=== PATIENT | female | born 1975 | race African-American/Black ===

== ENCOUNTER 2017-02-11 11:09 | Inpatient (IN) | payer BC ==
[2017-02-11] VITALS (7 sets, daily range): BP systolic 102–145; BP diastolic 64–86
[~2017-02-11] VITALS: Ht 154.9 cm; Wt 78.5 kg
[2017-02-11] MEDS ORDERED: IV NORMAL SALINE 1000ML BAG 1,000 ML IV ONE (13:00)
[2017-02-11] MEDS ORDERED: CONTRAST GIVEN MC PRN (13:30)
[2017-02-11] MEDS ORDERED: IOHEXOL 300 MG/ML 75 ML VIAL IV ONE (13:30)
[2017-02-11] MEDS: fentaNYL PF VIAL 100 MCG/2 ML VIAL IV PRN ×2 (13:47→17:27)
[2017-02-11 13:54] LABS: BASO # 0.2 x10^3/uL (0.0-0.2); BASO % 1 % (0-3); EOS % 1 % (0-3); HEMATOCRIT 36.9 % (36.0-47.0); HEMOGLOBIN 11.7 g/dL (12.0-15.5); LYMPH # 2.3 x10^3/uL (1.0-4.8); LYMPH % 18 % (24-48); MEAN CORPUSCULAR HEMOGLOBIN 26 pg (25-35); MEAN CORPUSCULAR HGB CONC 32 g/dL (31-37); MEAN CORPUSCULAR VOLUME 82 fL (79-100); MONO % 6 % (0-9); NEUT % 73 % (31-73); PLATELET COUNT 341 x10^3/uL (140-400); RED BLOOD COUNT 4.49 x10^6/uL (3.50-5.40); RED CELL DISTRIBUTION WIDTH 14.9 % (11.5-14.5); WHITE BLOOD COUNT 12.5 x10^3/uL (4.0-11.0)
[2017-02-11 13:58] LABS: CALCIUM 8.7 mg/dL (8.5-10.1); CREATININE 0.6 mg/dL (0.6-1.0); GFR 132.7; POTASSIUM 4.5 mmol/L (3.5-5.1)
[2017-02-11 13:58] LABS: BILIRUBIN,URINE NEGATIVE (NEG); GLUCOSE,URINE >=1000 mg/dL (NEG); NITRITE,URINE NEGATIVE (NEG); PROTEIN,URINE NEGATIVE (NEG-TRACE); UROBILINOGEN,URINE 0.2 mg/dL (0.2 mg/dL)
[2017-02-11 14:12] LABS: BACTERIA,URINE MANY /HPF (0-FEW); WBC,URINE 20-40 /HPF (0-4)
[2017-02-11 14:13] LABS: SQUAMOUS EPITHELIAL CELL,UR FEW /LPF
[2017-02-11 14:15] LABS: YEAST,URINE PRESENT /HPF
--- NOTE | 2017-02-11 14:43 | RAD ---
CT pelvis with IV contrast History: Chronic and perineal abscess. Comparison: None. Technique: After administration of intravenous contrast, 75 mL Omnipaque 300, CT of pelvis was performed. Aaxial, sagittal, and coronal reconstructions were obtained. One or more of the following individualized dose reduction techniques were utilized for the study: Automated exposure control Adjustment of mA and/or kV according to patient's size Use of iterative reconstruction technique. Findings: Evaluation of enteric structures may be limited by lack of oral contrast. Urinary bladder is unremarkable. Uterus and adnexa have unremarkable CT appearance. Aortoiliac atherosclerosis is seen. There are multiple small inguinal lymph nodes, which may be reactive. The medial inferior right gluteal subcutaneous soft tissues demonstrates several small foci of gas, compatible with gas forming infection. Small amount of associated fat stranding is seen. No focal gluteal fluid collection is identified. Involving the superficial perineum, involving the midline and slightly to the left of midline, there is a peripherally enhancing fluid collection with internal gas foci. This collection measures roughly 8 x 1 cm in axial dimension x 4.5 cm in craniocaudal dimension and may communicate with the skin surface. Impression: 1. The superficial perineum to the left of midline demonstrates peripheral enhancing gas and fluid collection measuring roughly 8 x 1 x 4.5 cm. This may communicate with the skin surface. Given provided history, this would be compatible with abscess. 2. Several small foci of gas are seen involving the medial right subcutaneous buttock with associated fat stranding, compatible with gas-forming infection. No focal fluid collection is identified in this location.
[2017-02-11] MEDS ORDERED: VANCOMYCIN 1GM IVPB FOR OMNI 250 ML IV ONE (15:00)
[2017-02-11] MEDS ORDERED: PIPERACILLIN/TAZOBACTAM 4.5 GM in IV NORMAL SALINE 100ML 100 ML IV ONE (15:00)
[2017-02-11] MEDS ORDERED: ONDANSETRON PF 4 MG/2 ML VIAL. IV PRN ×2 (15:30→16:15)
[2017-02-11] MEDS: IV NORMAL SALINE 1000ML BAG 1,000 ML IV SCH ×3 (15:30→16:26)
[2017-02-11] MEDS ORDERED: CLINDAMYCIN 600MG PREMIX 50 ML IV ONE (16:00)
[2017-02-11] MEDS ORDERED: IV RINGERS,LACTATED 1000ML 1,000 ML IV SCH (16:08)
[2017-02-11] MEDS ORDERED: fentaNYL PF VIAL 100 MCG/2 ML VIAL IV PRN ×2 (16:15)
[2017-02-11] MEDS ORDERED: LIDOCAINE 1% 1 ML SYRINGE. ID PRN (16:15)
[2017-02-11] MEDS ORDERED: MORPHINE SULFATE 2 MG/ML DISP.SYRIN. IV PRN (16:15)
[2017-02-11] MEDS ORDERED: PROCHLORPERAZINE 10 MG/2 ML VIAL. IV PRN ×2 (16:15→19:45)
[2017-02-11] MEDS ORDERED: HYDROmorphone 2 MG/ML VIAL IV PRN (16:15)
[2017-02-11] MEDS ORDERED: fentaNYL PF VIAL 100 MCG/2 ML VIAL ONE (16:16)
[2017-02-11] MEDS ORDERED: LIDOCAINE 2% 100 MG/5 ML SYRINGE. ONE ×2 (16:16→17:29)
[2017-02-11] MEDS ORDERED: ONDANSETRON PF 4 MG/2 ML VIAL. ONE ×2 (16:16→17:29)
[2017-02-11] MEDS ORDERED: PROPOFOL 0 ML IV ONE (16:16)
[2017-02-11] MEDS ORDERED: DEXAMETHASONE SOD PHOS 20 MG/5 ML VIAL. ONE ×2 (16:16→17:29)
[2017-02-11] MEDS ORDERED: MIDAZOLAM HCL/PF 2 MG/2 ML VIAL. ONE (16:16)
[2017-02-11] MEDS ORDERED: PROPOFOL 20 ML IV ONE (17:29)
[2017-02-11] MEDS ORDERED: SILVER NITRATE STICK TP ONE (17:48)
--- NOTE | 2017-02-11 17:51 | PDOC2 ---
CONSULT Date of Consult Date of Consult DATE: 02/11/17 TIME: 17:41 History of Present Illness Reason for Visit: The patient is a 41 year old female who reported to the ER due to gluteal and vaginal pain. She is a somewhat poor historian but states that she's been having problems over the last 2-3 weeks. She is not aware of any drainage or fever. The pain worsened prompting her to see assistance. She reports a history of diabetes and admits to not checking her sugars much over the last couple days. Past Medical History Endocrine: Diabetes Past Surgical History Past Surgical History Csection X 3 Social History No Lives: with Family Current Problem List Problem List Problems Medical Problems: (1) Perineal abscess Status: Acute Current Medications Current Medications Current Medications Fentanyl Citrate 50 mcg 50 mcg PRN Q15MIN PRN IV PAIN GREATER THAN 3/10 Last administered on 02/11/17 17:27; Start 02/11/17 at 13:00; Stop 02/12/17 at 12:59 Sodium Chloride (Iv Sodium Chloride 0.9% 1000ml Bag) 1,000 ml @ 1,000 mls/hr 1X ONCE IV Last administered on 02/11/17 13:48; Start 02/11/17 at 13:00; Stop 02/11/17 at 13:59; Status DC Iohexol (Omnipaque 300 Mg/ml) 75 ml 1X ONCE IV Last administered on 02/11/17 13:30; Start 02/11/17 at 13:30; Stop 02/11/17 at 13:31; Status DC Info 1 each 1 each PRN DAILY PRN MC SEE COMMENTS; Start 02/11/17 at 13:30; Stop 02/13/17 at 13:29 Vancomycin HCl 250 ml @ 250 mls/hr 1X ONCE IV Last administered on 02/11/17 17:35; Start 02/11/17 at 15:00; Stop 02/11/17 at 15:59; Status DC Piperacillin Sod/ Tazobactam Sod/ Sodium Chloride (Zosyn/Iv Sodium Chloride 0.9 % 100ml) 100 ml @ 200 mls/hr 1X ONCE IV Last administered on 02/11/17 16:06 ; Start 02/11/17 at 15:00; Stop 02/11/17 at 15:29; Status DC Ondansetron HCl (Zofran) 4 mg PRN Q8HRS PRN IV NAUSEA/VOMITING; Start 02/11/17 at 15:30; Stop 02/12/17 at 15:29 Morphine Sulfate 4 mg 4 mg PRN Q2HR PRN IV PAIN; Start 02/11/17 at 15:30; Stop 02/12/17 at 15:29 Sodium Chloride 1,000 ml @ 2,190 mls/hr Q28M IV ; Start 02/11/17 at 15:30; Stop 02/11/17 at 16:30; Status DC Clindamycin Phosphate (Cleocin 600 Mg Premix) 50 ml @ 100 mls/hr 1X ONCE IV ; Start 02/11/17 at 16:00; Stop 02/11/17 at 16:29; Status DC Ondansetron HCl (Zofran) 4 mg PRN Q6HRS PRN IV NAUSEA/VOMITING; Start 02/11/17 at 16:15; Stop 02/12/17 at 16:14 Fentanyl Citrate (Fentanyl 2ml Vial) 25 mcg PRN Q5MIN PRN IV MILD PAIN; Start 02/11/17 at 16:15; Stop 02/12/17 at 16:14 Fentanyl Citrate (Fentanyl 2ml Vial) 50 mcg PRN Q5MIN PRN IV MODERATE PAIN; Start 02/11/17 at 16:15; Stop 02/12/17 at 16:14 Morphine Sulfate 1 mg 1 mg PRN Q10MIN PRN IV SEVERE PAIN; Start 02/11/17 at 16: 15; Stop 02/12/17 at 16:14 Lactated Ringer's (Iv Lactated Ringers) 1,000 ml @ 30 mls/hr Q24H IV ; Start at 16:08; Stop 02/12/17 at 04:07 Lidocaine HCl 2 ml PRN 1X PRN ID PRIOR TO IV START; Start 02/11/17 at 16:15; Stop 02/12/17 at 16:14 Hydromorphone HCl (Dilaudid) 0.5 mg PRN Q10MIN PRN IV SEV PAIN, Second choice; Start 02/11/17 at 16:15; Stop 02/12/17 at 16:14 Prochlorperazine Edisylate (Compazine) 5 mg PACU PRN PRN IV NAUSEA, MRX1; Start 02/11/17 at 16:15; Stop 02/12/17 at 16:14 Dexamethasone Sodium Phosphate (Decadron) 20 mg STK-MED ONCE .ROUTE ; Start at 16:16; Stop 02/11/17 at 16:17; Status DC Ondansetron HCl 4 mg 4 mg STK-MED ONCE .ROUTE ; Start 02/11/17 at 16:16; Stop at 16:17; Status DC Propofol (Diprivan) 0 ml @ As Directed STK-MED ONCE IV ; Start 02/11/17 at 16:16 ; Stop 02/11/17 at 16:17; Status DC Lidocaine HCl (Lidocaine HCl 2% Abboject) 100 mg STK-MED ONCE .ROUTE ; Start at 16:16; Stop 02/11/17 at 16:17; Status DC Midazolam HCl (Versed) 2 mg STK-MED ONCE .ROUTE ; Start 02/11/17 at 16:16; Stop 02/11/17 at 16:17; Status DC Fentanyl Citrate (Fentanyl 2ml Vial) 100 mcg STK-MED ONCE .ROUTE ; Start at 16:16; Stop 02/11/17 at 16:17; Status DC Insulin Aspart (Novolog) 0-9 UNITS TIDWMEALS SQ ; Start 02/12/17 at 08:00 Dextrose (Dextrose 50%-Water Syringe) 12.5 gm PRN Q15MIN PRN IV SEE COMMENTS; Start 02/11/17 at 17:30 Dexamethasone Sodium Phosphate (Decadron) 20 mg STK-MED ONCE .ROUTE ; Start at 17:29; Stop 02/11/17 at 17:30; Status DC Ondansetron HCl 4 mg 4 mg STK-MED ONCE .ROUTE ; Start 02/11/17 at 17:29; Stop at 17:30; Status DC Propofol (Diprivan) 20 ml @ As Directed STK-MED ONCE IV ; Start 02/11/17 at 17: 29; Stop 02/11/17 at 17:30; Status DC Lidocaine HCl (Lidocaine HCl 2% Abboject) 100 mg STK-MED ONCE .ROUTE ; Start at 17:29; Stop 02/11/17 at 17:30; Status DC Allergies Allergies: Coded Allergies: No Known Drug Allergies (Unverified , 12/26/15) ROS General: No: Appetite, Chills, Fatigue, Malaise, Night Sweats, Other PSYCHOLOGICAL ROS: No: Anxiety, Behavioral Disorder, Concentration difficultie , Decreased libido, Depression, Disorientation, Hallucinations, Hostility, Irritablity, Memory difficulties, Mood Swings, Obsessive thoughts, Other, Physical abuse, Sexual abuse, Sleep disturbances, Suicidal ideation Eyes: No Blurry vision, No Decreased vision, No Double vision, No Dry eyes, No Excessive tearing, No Eye Pain, No Itchy Eyes, No Loss of vision, No Other, No Photophobia, No Scotomata, No Uses contacts, No Uses glasses HEENT: No: Epistaxis, Heacaches, Hearing change, Nasal congestion, Nasal discharge, Oral lesions, Other, Sinus pain, Sneezing, Snoring, Sore Throat, Tinnitus, Vertigo, Visual Changes, Vocal changes ALLERGY AND IMMUNOLOGY: No: Hives, Insect Bite Sensitivity, Itchy/Watery Eyes, Nasal Congestion, Other, Post Nasal Drip, Seasonal Allergies Hematological and Lymphatic: No: Bleeding Problems, Blood Clots, Blood Transfusions, Brusing, Night Sweats, Other, Pallor, Swollen Lymph Nodes ENDOCRINE: No: Breast Changes, Galactorrhea, Hair Pattern Changes, Hot Flashes , Malaise/lethargy, Mood Swings, Other, Palpitations, Polydipsia/polyuria, Skin Changes, Temperature Intolerance, Unexpected Weight Changes Respiratory: No: Cough, Hemoptysis, Orthopnea, Other, Pleuritic Pain, SOB with excertion, Shortness of breath, Sputum Changes, Stridor, Tachypnea, Wheezing Cardiovascular: No Chest Pain, No Edema, No Lt Headedness, No Orthopnea, No Other, No Palpitations, No Paroxysmal Noc. Dyspnea Gastrointestinal: No Abdominal Pain, No Constipation, No Diarrhea, No Hematochezia, No Melena, No Nausea, No Other, No Vomiting Genitourinary: YES Dysuria Musculoskeletal: No Gait Disturbance, No Joint Pain, No Joint Stiffness, No Joint Swelling, No Muscle Pain, No Muscular Weakness, No Other, No Pain In:, No Swelling In: Neurological: No Behavorial Changes, No Bowel/Bladder ControlChng, No Confusion , No Dizziness, No Gait Disturbance, No Headaches, No Impaired Coord/balance, No Memory Loss, No Numbness/Tingling, No Other, No Seizures, No Speech Problems , No Tremors, No Visual Changes, No Weakness Skin: No Acne, No Dry Skin, No Eczema, No Hair Changes, No Lumps, No Mole Changes, No Mottling, No Nail Changes, No Other, No Pruritus, No Rash, No Skin Lesion Changes Physical Exam Physical Exam open right gluteal wound with healthy granulation base, communicates and include portion of right labia, minimal induration and drainage; note was made of extensive yeast like plaquing of vaginal opening and surrounding labia General: Alert, Oriented X3, Cooperative HEENT: Atraumatic Lungs: Clear to auscultation Heart: Regular rate Abdomen: Soft, No tenderness Extremities: No clubbing, No cyanosis Neuro: Normal speech Psych/Mental Status: Mental status NL MUSCULOSKELETAL: No joint tenderness, No deformity Vitals VITALS Vital Signs Date Time Temp Pulse Resp B/P Pulse Ox O2 Delivery O2 Flow Rate FiO2 02/11/17 17:27 20 98 Room Air 02/11/17 16:00 94 144/82 02/11/17 11:35 98.0 98.0 Labs Labs Laboratory Tests Test 02/11/17 11:30 02/11/17 13:30 02/11/17 15:30 Urine Collection Type Unknown Urine Color Yellow Urine Clarity Turbid Urine pH 6.0 Urine Specific [place] 1.010 Urine Protein Negativemg/dL (NEG-TRACE) Urine Glucose (UA) >=1000mg/dL (NEG) Urine Ketones (Stick) 15mg/dL (NEG) Urine Blood Small (NEG) Urine Nitrite Negative (NEG) Urine Bilirubin Negative (NEG) Urine Urobilinogen Dipstick 0.2mg/dL (0.2 mg/dL) Urine Leukocyte Esterase Large (NEG) Urine RBC 11-20/HPF (0-2) Urine WBC 20-40/HPF (0-4) Urine Squamous Epithelial Cells Few/LPF Urine Bacteria Many/HPF (0-FEW) Urine Yeast Present/HPF White Blood Count 12.5x10^3/uL (4.0-11.0) Red Blood Count 4.49x10^6/uL (3.50-5.40) Hemoglobin 11.7g/dL (12.0-15.5) Hematocrit 36.9% (36.0-47.0) Mean Corpuscular Volume 82fL (79-100) Mean Corpuscular Hemoglobin 26pg (25-35) Mean Corpuscular Hemoglobin Concent 32g/dL (31-37) Red Cell Distribution Width 14.9% (11.5-14.5) Platelet Count 341x10^3/uL (140-400) Neutrophils (%) (Auto) 73% (31-73) Lymphocytes (%) (Auto) 18% (24-48) Monocytes (%) (Auto) 6% (0-9) Eosinophils (%) (Auto) 1% (0-3) Basophils (%) (Auto) 1% (0-3) Neutrophils # (Auto) 9.2x10^3uL (1.8-7.7) Lymphocytes # (Auto) 2.3x10^3/uL (1.0-4.8) Monocytes # (Auto) 0.8x10^3/uL (0.0-1.1) Eosinophils # (Auto) 0.2x10^3/uL (0.0-0.7) Basophils # (Auto) 0.2x10^3/uL (0.0-0.2) Sodium Level 133mmol/L (136-145) Potassium Level 4.5mmol/L (3.5-5.1) Chloride Level 96mmol/L (98-107) Carbon Dioxide Level 30mmol/L (21-32) Anion Gap 7 (6-14) Blood Urea Nitrogen 8mg/dL (7-20) Creatinine 0.6mg/dL (0.6-1.0) Estimated GFR (Cockcroft-Gault) 132.7 Glucose Level 380mg/dL (70-99) Calcium Level 8.7mg/dL (8.5-10.1) Lactic Acid Level 1.1mmol/L (0.4-2.0) Laboratory Tests Test 02/11/17 11:30 02/11/17 13:30 02/11/17 15:30 Urine Collection Type Unknown Urine Color Yellow Urine Clarity Turbid Urine pH 6.0 Urine Specific [place] 1.010 Urine Protein Negativemg/dL (NEG-TRACE) Urine Glucose (UA) >=1000mg/dL (NEG) Urine Ketones (Stick) 15mg/dL (NEG) Urine Blood Small (NEG) Urine Nitrite Negative (NEG) Urine Bilirubin Negative (NEG) Urine Urobilinogen Dipstick 0.2mg/dL (0.2 mg/dL) Urine Leukocyte Esterase Large (NEG) Urine RBC 11-20/HPF (0-2) Urine WBC 20-40/HPF (0-4) Urine Squamous Epithelial Cells Few/LPF Urine Bacteria Many/HPF (0-FEW) Urine Yeast Present/HPF White Blood Count 12.5x10^3/uL (4.0-11.0) Red Blood Count 4.49x10^6/uL (3.50-5.40) Hemoglobin 11.7g/dL (12.0-15.5) Hematocrit 36.9% (36.0-47.0) Mean Corpuscular Volume 82fL (79-100) Mean Corpuscular Hemoglobin 26pg (25-35) Mean Corpuscular Hemoglobin Concent 32g/dL (31-37) Red Cell Distribution Width 14.9% (11.5-14.5) Platelet Count 341x10^3/uL (140-400) Neutrophils (%) (Auto) 73% (31-73) Lymphocytes (%) (Auto) 18% (24-48) Monocytes (%) (Auto) 6% (0-9) Eosinophils (%) (Auto) 1% (0-3) Basophils (%) (Auto) 1% (0-3) Neutrophils # (Auto) 9.2x10^3uL (1.8-7.7) Lymphocytes # (Auto) 2.3x10^3/uL (1.0-4.8) Monocytes # (Auto) 0.8x10^3/uL (0.0-1.1) Eosinophils # (Auto) 0.2x10^3/uL (0.0-0.7) Basophils # (Auto) 0.2x10^3/uL (0.0-0.2) Sodium Level 133mmol/L (136-145) Potassium Level 4.5mmol/L (3.5-5.1) Chloride Level 96mmol/L (98-107) Carbon Dioxide Level 30mmol/L (21-32) Anion Gap 7 (6-14) Blood Urea Nitrogen 8mg/dL (7-20) Creatinine 0.6mg/dL (0.6-1.0) Estimated GFR (Cockcroft-Gault) 132.7 Glucose Level 380mg/dL (70-99) Calcium Level 8.7mg/dL (8.5-10.1) Lactic Acid Level 1.1mmol/L (0.4-2.0) Images Images CT pelvis Impression: 1. The superficial perineum to the left of midline demonstrates peripheral enhancing gas and fluid collection measuring roughly 8 x 1 x 4.5 cm. This may communicate with the skin surface. Given provided history, this would be compatible with abscess. 2. Several small foci of gas are seen involving the medial right subcutaneous buttock with associated fat stranding, compatible with gas-forming infection. No focal fluid collection is identified in this location. Assessment/Plan Assessment/Plan 41 year old female with pelvic and gluteal pain; the right gluteus shows an open wound which has a clean base with healthy granulation tissue, minimal drainage; the appearance is subacute and consistent with a healing wound without signs of necrosis or active infection; there appears to be a separate region in the midline on the pelvic CT scan with air and fluid, reviewed with Dr Bello; this area does not communicate to R gluteal wound, may be intravaginal, ?abscess, ?foreign material. Consulted Dr Rojas who promptly reported and examined the patient. The exam was difficult due to pain, plan for exam under anesthesia. GORDO TONY MD Feb 11, 2017 17:51
[2017-02-11] MEDS ORDERED: INSULIN REGULAR 100 UNIT/ML 10ML VIAL. IV ONE ×2 (18:30→20:30)
--- NOTE | 2017-02-11 18:40 | ACF ---
Admission Forms Criteria WOUND COMPLICATIONS Clinical Indications for Inpatient Care (Place 'X' for any and all applicable criteria): Ongoing inpatient care may be indicated for wound complications with ANY ONE of the following (1) (15): [X]I. Infection with ANY ONE of the following(32)(33): [ ]a) Temperature greater than 38.5 C (101.3 F) [ ]b) Evidence of tissue necrosis [ ]c) Erythema diameter expanding around wound despite treatment [ ]d) Mental status changes [ ]e) Dehydration [ ]f) Bacteremia [ ]g) Hemodynamic instability [ ]h) Suspected necrotizing fasciitis [ ]i) Rapidly spreading lesions [X]j) High-risk location (eg, perineum, sternum, orbit) [ ]k) High-risk coexisting clinical condition as indicated by ANY ONE of the following: [ ]i) Poorly controlled diabetes [ ]ii) Cirrhosis [ ]iii) Renal failure [ ]iv) Neutropenia [ ] v) Asplenia [ ]vi) Immunosuppression (eg, AIDS, chronic corticosteroid use) [ ]viii) Other high-risk medical comorbidities [ ] II. Dehiscence requiring frequent monitoring or immediate treatment [ ] III. Hematoma with ANY ONE of the following: [ ]a) Hemodynamic instability or acute anemia due to rapid development of hematoma [ ]b) Neck hematoma causing airway compression [ ]c) Retroperitoneal hematoma [ ]d) Uncontrolled coagulopathy [ ]IV. Seroma with evidence of secondary infection and requirement for IV antibiotics [D](31) [ ]V. Pain that cannot be managed at lower level of care Extended stay beyond goal length of stay for primary condition may be needed until ALL of the following are present(1)(33)(34): [ ]a) Afebrile or fever resolving [ ]b) Hemodynamic stability [ ]c) Pain resolving [ ]d) Wound closed, continuity adequately restored, or wound manageable at lower level of care [ ]e) No drain needed or drain care manageable at lower level of care [ ]f) Wound hematoma or seroma resolving [ ]g) Antibiotics not needed or regimen manageable at lower level of care(38) [ ]h) Dressing care manageable at lower level of care [ ]i) Coagulopathy absent, resolved, or treatable at lower level of care [ ]j) Medical comorbidities resolved or treatable at lower level of care The original [facility] content created by [facility] has been revised. The portions of the content which have been revised are identified through the use of italic text or in bold, and [facility] has neither reviewed nor approved the modified material. All other unmodified content is copyright [facility]. Please see references footnoted in the original [facility] edition 2016 Admission Criteria Met?: Yes JANINE KHAN Feb 11, 2017 18:40
--- NOTE | 2017-02-11 19:36 | PDOC ---
BRIEF OPERATIVE NOTE Pre-Op Diagnosis 1. Gluteal Abscess 2. Severe Vulvitis Post-Op Diagnosis Same Procedure Performed 1. EUA 2. Debridement of Vulva 3. Wound Packing of Gluteal abscess and Right labial abscess Surgeon Dr. Rojas Anesthesia Type: General Blood Loss 25 ml Specimens Obtained culture of gluteal abscess Findings severe vulvitis with exudate covering entire vulva, Right gluteal abscess with extension to Right vulva with granulation tissue Complications none Additional Remarks pt. FRANCESCA Cohen Jr, MD Feb 11, 2017 19:36
--- NOTE | 2017-02-11 19:44 | PHYS DOC ---
Past Medical History Past Medical History: Diabetes-Type II Past Surgical History: Alcohol Use: None Drug Use: None Adult General Chief Complaint Chief Complaint: PELVIC PAIN HPI HPI Patient is a 41 year old female who presents with rectal discomfort. The patient reports discomfort and swelling around her rectum and vagina for unknown duration of time, maybe one or 2 weeks. She denies fevers or chills, nausea or vomiting, abdominal pain, flank pain, dysuria or hematuria, vaginal bleeding or discharge. Denies previous history of similar symptoms. History of diabetes. Review of Systems Review of Systems Constitutional: Denies fever or chills Eyes: Denies change in visual acuity HENT: Denies nasal congestion or sore throat Respiratory: Denies cough or shortness of breath Cardiovascular: Denies chest pain or edema GI: Denies abdominal pain, nausea, vomiting, bloody stools or diarrhea. Reports rectal pain : Denies dysuria or hematuria. Reports vaginal pain Musculoskeletal: Denies back pain or joint pain Integument: Denies rash or skin lesions Neurologic: Denies headache, focal weakness or sensory changes Current Medications Current Medications Current Medications Medications (Trade) Dose Ordered Sig/Jono Start Time Stop Time Status Last Admin Dose Admin Fentanyl Citrate 50 mcg 50 mcg PRN Q15MIN PRN 02/11/17 13:00 02/12/17 12:59 02/11/17 17:27 50 MCG Info 1 each 1 each PRN DAILY PRN 02/11/17 13:30 02/13/17 13:29 Iohexol (Omnipaque 300 Mg/ml) 75 ml 1X ONCE 02/11/17 13:30 02/11/17 13:31 DC 02/11/17 13:30 75 ML Piperacillin Sod/ Tazobactam Sod/ Sodium Chloride (Zosyn/Iv Sodium Chloride 0.9% 100ml) 100 ml @ 200 mls/hr 1X ONCE 02/11/17 15:00 02/11/17 15:29 DC 02/11/17 16:06 200 MLS/HR Sodium Chloride (Iv Sodium Chloride 0.9% 1000ml Bag) 1,000 ml @ 1,000 mls/hr 1X ONCE 02/11/17 13:00 02/11/17 13:59 DC 02/11/17 13:48 1,000 MLS/HR Vancomycin HCl 250 ml @ 250 mls/hr 1X ONCE 02/11/17 15:00 02/11/17 15:59 DC 02/11/17 17:35 250 MLS/HR Allergies Allergies Allergies Coded Allergies Type Severity Reaction Last Updated Verified No Known Drug Allergies 12/26/15 No Physical Exam Physical Exam Constitutional: Well developed, well nourished, no acute distress, non-toxic appearance. HENT: Normocephalic, atraumatic, bilateral external ears normal, oropharynx moist, nose normal. Eyes: conjunctiva normal, no discharge. Neck: supple, no stridor. Cardiovascular: RRR, no murmurs, no edema. Lungs & Thorax: LCTAB, no wheezing, no respiratory distress. Abdomen: soft, nontender, nondistended. /Rectal: extensive induration to right buttock, perineum, both labia. area of induration with open wound to medial right buttock approx 6 cm x 3 cm, with skin breakdown to medial left buttock, no rectal fluctuance but she has pain with minimal insertion of gloved finger on rectal exam. diffuse white plaque/ discharge (?yeast) to vulva, difficult pelvic exam due to skin adhesions & discomfort. intravaginally there is a copious amount of purulent fluid, no visualized foreign body, unable to visualize cervix, bimanual exam demonstrates diffuse vaginal discomfort without palpable fluctuance/induration internally. Skin: Warm, dry, no erythema, no rash. Back: No CVA tenderness. Extremities: No tenderness, no edema. Neurologic: Alert and oriented X 3, no focal deficits noted. Psychologic: Affect normal, judgement normal, mood normal. Current Patient Data Vital Signs Vital Signs Date Time Temp Pulse Resp B/P Pulse Ox O2 Delivery O2 Flow Rate FiO2 02/11/17 15:00 90 18 169/83 98 02/11/17 13:47 Room Air 02/11/17 11:35 98.0 98.0 Lab Values Laboratory Tests Test 02/11/17 11:30 02/11/17 13:30 Urine Collection Type Unknown Urine Color Yellow Urine Clarity Turbid Urine pH 6.0 Urine Specific [place] 1.010 Urine Protein Negativemg/dL (NEG-TRACE) Urine Glucose (UA) >=1000mg/dL (NEG) Urine Ketones (Stick) 15mg/dL (NEG) Urine Blood Small (NEG) Urine Nitrite Negative (NEG) Urine Bilirubin Negative (NEG) Urine Urobilinogen Dipstick 0.2mg/dL (0.2 mg/dL) Urine Leukocyte Esterase Large (NEG) Urine RBC 11-20/HPF (0-2) Urine WBC 20-40/HPF (0-4) Urine Squamous Epithelial Cells Few/LPF Urine Bacteria Many/HPF (0-FEW) Urine Yeast Present/HPF White Blood Count 12.5x10^3/uL (4.0-11.0) H Red Blood Count 4.49x10^6/uL (3.50-5.40) Hemoglobin 11.7g/dL (12.0-15.5) L Hematocrit 36.9% (36.0-47.0) Mean Corpuscular Volume 82fL (79-100) Mean Corpuscular Hemoglobin 26pg (25-35) Mean Corpuscular Hemoglobin Concent 32g/dL (31-37) Red Cell Distribution Width 14.9% (11.5-14.5) H Platelet Count 341x10^3/uL (140-400) Neutrophils (%) (Auto) 73% (31-73) Lymphocytes (%) (Auto) 18% (24-48) L Monocytes (%) (Auto) 6% (0-9) Eosinophils (%) (Auto) 1% (0-3) Basophils (%) (Auto) 1% (0-3) Neutrophils # (Auto) 9.2x10^3uL (1.8-7.7) H Lymphocytes # (Auto) 2.3x10^3/uL (1.0-4.8) Monocytes # (Auto) 0.8x10^3/uL (0.0-1.1) Eosinophils # (Auto) 0.2x10^3/uL (0.0-0.7) Basophils # (Auto) 0.2x10^3/uL (0.0-0.2) Sodium Level 133mmol/L (136-145) L Potassium Level 4.5mmol/L (3.5-5.1) Chloride Level 96mmol/L (98-107) L Carbon Dioxide Level 30mmol/L (21-32) Anion Gap 7 (6-14) Blood Urea Nitrogen 8mg/dL (7-20) Creatinine 0.6mg/dL (0.6-1.0) Estimated GFR (Cockcroft-Gault) 132.7 Glucose Level 380mg/dL (70-99) H Calcium Level 8.7mg/dL (8.5-10.1) Laboratory Tests 02/11/17 13:30 Laboratory Tests 02/11/17 13:30 EKG EKG [] Radiology/Procedures Radiology/Procedures PROCEDURE: CT PELVIS W/CONTRAST CT pelvis with IV contrast History: Chronic and perineal abscess. Comparison: None. Technique: After administration of intravenous contrast, 75 mL Omnipaque 300, CT of pelvis was performed. Aaxial, sagittal, and coronal reconstructions were obtained. One or more of the following individualized dose reduction techniques were utilized for the study: Automated exposure control Adjustment of mA and/or kV according to patient's size Use of iterative reconstruction technique. Findings: Evaluation of enteric structures may be limited by lack of oral contrast. Urinary bladder is unremarkable. Uterus and adnexa have unremarkable CT appearance. Aortoiliac atherosclerosis is seen. There are multiple small inguinal lymph nodes, which may be reactive. The medial inferior right gluteal subcutaneous soft tissues demonstrates several small foci of gas, compatible with gas forming infection. Small amount of associated fat stranding is seen. No focal gluteal fluid collection is identified. Involving the superficial perineum, involving the midline and slightly to the left of midline, there is a peripherally enhancing fluid collection with internal gas foci. This collection measures roughly 8 x 1 cm in axial dimension x 4.5 cm in craniocaudal dimension and may communicate with the skin surface. Impression: 1. The superficial perineum to the left of midline demonstrates peripheral enhancing gas and fluid collection measuring roughly 8 x 1 x 4.5 cm. This may communicate with the skin surface. Given provided history, this would be compatible with abscess. 2. Several small foci of gas are seen involving the medial right subcutaneous buttock with associated fat stranding, compatible with gas-forming infection. No focal fluid collection is identified in this location. DICTATED and SIGNED BY: ED SAINZ MD DATE: 02/11/17 [id number][] Course & Med Decision Making Course & Med Decision Making Pertinent Labs and Imaging studies reviewed. (See chart for details) The patient presents with vaginal and rectal pain. There is a very impressive exam demonstrating large open wound, induration throughout the perineum and across the buttocks. Patient is afebrile, mildly tachycardic, mild leukocytosis. Obtained CT of the pelvis which suggests gas-forming organism, concerned for necrotizing fasciitis/jay's gangrene. Consulted Dr. Latif of general surgery. Ordered vancomycin and Zosyn. Consulted with Dr. Clemente of infectious disease who recommends addition of clindamycin. Originally I had discussed with Dr. Shaver who agreed to admit the patient to inpatient status, to the ICU. Dr. Latif came to the emergency Department to evaluate the patient , upon his more aggressive exam the large buttock wound actually tracks up into the labia but is open and draining. He did not feel that the patient required emergent general surgery intervention as wound already open & draining, minimal surrounding cellulitis. He requested consult to Dr. Rojas of gynecology who came to the emergency department as well in the evaluated the patient together. He plans to take the patient to surgery for further evaluation, suspect skin breakdown but will do exam under anesthesia for further evaluation. Discussed with consultants and admitting, we'll downgrade to med/telemetry status. Patient agrees with plan, admitted in stable condition. Critical care time: 45 minutes [] Dragon Disclaimer Dragon Disclaimer This electronic medical record was generated, in whole or in part, using a voice recognition dictation system. Departure Departure Impression: Primary Impression: Perineal abscess Additional Impressions: Vulvar inflammation Vaginal discharge Leukocytosis Hyperglycemia Disposition: 09 ADMITTED INPATIENT Condition: STABLE Problem Qualifiers RANDY AMATO MD Feb 11, 2017 19:44
[2017-02-11] MEDS ORDERED: diphenhydrAMINE HCL 25 MG CAPSULE PO PRN (19:45)
[2017-02-11] MEDS ORDERED: CALCIUM CARBONATE 500 MG TAB.CHEW PO PRN (19:45)
[2017-02-11] MEDS ORDERED: ZOLPIDEM 5 MG TABLET. PO PRN (19:45)
[2017-02-11] MEDS ORDERED: DEXTROSE 50% 25 GM / 50ML DISP.SYRIN. IV PRN ×2 (19:45)
[2017-02-11] MEDS ORDERED: 0.9 % SODIUM CHLORIDE 10 ML DISP.SYRIN. IV PRN (19:45)
[2017-02-11] MEDS ORDERED: SIMETHICONE 80 MG TAB.CHEW PO PRN (19:45)
[2017-02-11] MEDS ORDERED: diphenhydrAMINE 50 MG/ML VIAL IV PRN (20:00)
[2017-02-11] MEDS: MORPHINE SULFATE 4 MG/ML DISP.SYRIN. IV PRN (21:46)
[2017-02-11] MEDS: GABAPENTIN 300 MG CAPSULE. PO SCH (23:14)
--- NOTE | 2017-02-11 23:49 | HP ---
ADMIT DATE: 02/11/2017 CHIEF COMPLAINT: Buttock pain. HISTORY OF PRESENT ILLNESS: The patient is a 41-year-old -[place] woman with past medical history of diabetes who presented to the Emergency Room on urging of her who visits the wound clinic multiple times a week. She is somewhat fuzzy on the exact start date, but she has had buttock and vulvar pain for several weeks. She denies any fevers or chills. Pain is fairly severe, but she denies that she ever noticed bleeding or oozing from the area. In the Emergency Room, she was evaluated and found with extensive open wounds on her buttock as well as vulva. CT of the pelvis revealed an 8 x 4.5 cm gas and fluid collection consistent with an abscess in her perineum, left of the midline, several small foci of gas were also noticed in the medial right subcutaneous buttock with associated fat stranding compatible with gas forming infection. Consult from surgery as well as CHARGER TESTER were obtained and the patient was taken to the operating room by Dr. Rojas. Severe vulvitis with exudate covering the entire vulva was found as well as right gluteal abscess with extension to right vulva with granulation tissue. The abscess was drained and packed. Vulva was debrided. The patient is now admitted for postop care and monitoring. PAST MEDICAL HISTORY: Diabetes mellitus. FAMILY HISTORY: Positive for father with diabetes. No family history known of CAD, hypertension. SOCIAL HISTORY: She is , living with her and 2 children. Never smoked, no toxic habits. ALLERGIES: No known drug allergies. MEDICATIONS: MAR reconciled with home medications. REVIEW OF SYSTEMS: Pain currently is fairly well controlled. She still feels a little drowsy. Denies any symptoms in rest of organ system review. PHYSICAL EXAMINATION: VITAL SIGNS: From today show a blood pressure of 123/72, heart rate of 92, respiratory rate at 18. She is afebrile. GENERAL: This is a 41-year-old -[place] woman, awake, alert, in no acute distress. HEENT: Shows no scleral icterus. Dentition is poor. NECK: Supple. LUNGS: Clear to auscultation bilaterally. HEART: Regular rate and rhythm. ABDOMEN: Has positive bowel sounds, soft, nontender. EXTREMITIES: Show no edema, no clubbing, no cyanosis. SKIN: Warm, soft and dry. LABORATORY DATA: CBC with WBC of 12.5, hemoglobin 11.7, platelets of 341. Chemistries with a BUN and creatinine of 8 and 0.6, sodium of 133, chloride at 96, glucose at 380 and elevated over 200 over the evening. Urine showed 20-40 wbc and many bacteria, 11-20 rbc present as well, glucose greater than 1000. IMAGING STUDIES: Pelvis CT as noted under HPI. ASSESSMENT AND PLAN: The patient is a 41-year-old woman with a gas producing abscess in her buttocks/vulva. The initial injury clearly has started significantly longer and is subacute and shows granulation. This has now been addressed with abscess drainage and packing as well as debridement per Dr. Rojas. We will continue wound care. Wound care team will be consulted as well. The patient has been placed on antibiotics including Flagyl. We will continue for now. ID consult to be obtained in the morning. Cultures are pending. Diabetes clearly is poorly controlled. Current medications are unknown. We will restart ECTOR. In addition, insulin sliding scale will be instituted. Suspect the patient is poorly controlled as she does not check frequently. She has lost her job and thus her primary care provider, and is currently following up at [facility] as needed only. Will continue other home medications as indicated. For prophylaxis, she will be started on H2 blockers as well as SCDs. RAHUL MONTERO MD DR: ALEX/tal JOB#: [id number] / [id number] TONNY
[2017-02-12] VITALS (7 sets, daily range): BP systolic 97–146; BP diastolic 63–85
--- NOTE | 2017-02-12 00:29 | OP ---
DATE OF SURGERY: PREOPERATIVE DIAGNOSES: 1. Gluteal abscess. 2. Severe vulvitis. POSTOPERATIVE DIAGNOSES: 1. Gluteal abscess. 2. Severe vulvitis. PROCEDURE: 1. Exam under anesthesia. 2. Debridement of vulva. 3. Wound packing of gluteal abscess and right labial abscess. SURGEON: Francesca Bautista M.D. ANESTHESIA: GETA. ESTIMATED BLOOD LOSS: 25 mL. COMPLICATIONS: None. FINDINGS: Severe vulvitis with exudate covering entire vulva, right gluteal abscess with extension at the right vulva with granulation tissue. SUMMARY: A 41-year-old female who presents to Emergency Department with buttocks pain and tenderness. She reports having the symptoms for last 2-3 weeks. She denied any fever, chills, nausea, vomiting or drainage from the area. During examination in the Emergency Department by myself and Dr. Latif as well as Emergency Room physician, the patient had gluteal abscess that has spontaneously opened and drained with granulation tissue that extended from the right gluteal all the way to the right labia. There was severe vulvitis with at least a cm thick of exudate on the vulvar area occluding the vaginal opening. The patient was counseled on surgery and ____ exam under anesthesia as well as evaluation of gluteal abscess and vaginal and labial areas for any additional abscess formation. The patient voiced clear understanding of all risks, benefits and expectations. DESCRIPTION OF PROCEDURE: The patient was taken to the surgery suite and placed in dorsal lithotomy position. She was prepped with Betadine solution and draped in sterile fashion. The gluteal abscess was explored in which the tracts extended from the right gluteus all the way to the right labia majora. There was no other abscess formation, all the tracts were palpated digitally and with the swabs. The area did demonstrate granulation tissue. The vulvar exudate was then removed with moist Ray-Dasia as well as the ____ pulsator. Once this was removed, a Tai catheter was placed, which elicited moderate amount of clear fluid. The speculum was utilized to visualize the cervix, which appeared normal. There were no lacerations or lesions intravaginally. There were no ulcerations intravaginally or any extensions into the vaginal vault. This was copiously irrigated as well. The buttock was then packed with Kerlix gauze with instruction from Dr. Latif. A 4 x 4s were then placed over the Kerlix to keep the Kerlix gauze in place. The patient was then taken to recovery room in stable condition. Sponge count correct x 3. FRANCESCA BAUTISTA MD DR: CRISSY/tal JOB#: [id number] / [id number]
[2017-02-12] MEDS: MORPHINE SULFATE 4 MG/ML DISP.SYRIN. IV PRN ×3 (02:53→09:14)
[2017-02-12] MEDS: GABAPENTIN 300 MG CAPSULE. PO SCH ×3 (06:08→21:53)
[2017-02-12 06:34] LABS: BASO % 0 % (0-3); EOS % 0 % (0-3); HEMOGLOBIN 11.2 g/dL (12.0-15.5); LYMPH # 1.2 x10^3/uL (1.0-4.8); LYMPH % 11 % (24-48); MEAN CORPUSCULAR HEMOGLOBIN 26 pg (25-35); MEAN CORPUSCULAR HGB CONC 31 g/dL (31-37); MEAN CORPUSCULAR VOLUME 83 fL (79-100); MONO % 3 % (0-9); NEUT % 85 % (31-73); PLATELET COUNT 314 x10^3/uL (140-400); RED BLOOD COUNT 4.35 x10^6/uL (3.50-5.40); RED CELL DISTRIBUTION WIDTH 14.7 % (11.5-14.5); WHITE BLOOD COUNT 11.1 x10^3/uL (4.0-11.0)
[2017-02-12 06:56] LABS: CALCIUM 8.6 mg/dL (8.5-10.1); CREATININE 0.6 mg/dL (0.6-1.0); GFR 132.7; POTASSIUM 4.5 mmol/L (3.5-5.1)
[2017-02-12] MEDS: INSULIN ASPART 300 UNITS/3 ML INSULN.PEN SQ SCH ×5 (08:00→17:00)
[2017-02-12] MEDS ORDERED: INSULIN ASPART 300 UNITS/3 ML INSULN.PEN SQ SCH (08:00)
[2017-02-12] MEDS ORDERED: INSULIN DETEMIR 300 UNITS/3 ML INSULN.PEN. SQ ONE (08:30)
[2017-02-12] MEDS ORDERED: INSULIN ASPART 300 UNITS/3 ML INSULN.PEN SQ ONE (08:30)
--- NOTE | 2017-02-12 08:53 | PDOC ---
Infectious Disease Note Vital Sign Vital Signs Vital Signs Date Time Temp Pulse Resp B/P Pulse Ox O2 Delivery O2 Flow Rate FiO2 02/12/17 07:00 97.9 93 18 104/65 97 Nasal Cannula 3.0 97.9 Labs Lab Laboratory Tests Test 02/11/17 11:30 02/11/17 13:30 02/11/17 15:30 02/11/17 18:25 Urine Collection Type Unknown Urine Color Yellow Urine Clarity Turbid Urine pH 6.0 Urine Specific [place] 1.010 Urine Protein Negativemg/dL (NEG-TRACE) Urine Glucose (UA) >=1000mg/dL (NEG) Urine Ketones (Stick) 15mg/dL (NEG) Urine Blood Small (NEG) Urine Nitrite Negative (NEG) Urine Bilirubin Negative (NEG) Urine Urobilinogen Dipstick 0.2mg/dL (0.2 mg/dL) Urine Leukocyte Esterase Large (NEG) Urine RBC 11-20/HPF (0-2) Urine WBC 20-40/HPF (0-4) Urine Squamous Epithelial Cells Few/LPF Urine Bacteria Many/HPF (0-FEW) Urine Yeast Present/HPF White Blood Count 12.5x10^3/uL (4.0-11.0) Red Blood Count 4.49x10^6/uL (3.50-5.40) Hemoglobin 11.7g/dL (12.0-15.5) Hematocrit 36.9% (36.0-47.0) Mean Corpuscular Volume 82fL (79-100) Mean Corpuscular Hemoglobin 26pg (25-35) Mean Corpuscular Hemoglobin Concent 32g/dL (31-37) Red Cell Distribution Width 14.9% (11.5-14.5) Platelet Count 341x10^3/uL (140-400) Neutrophils (%) (Auto) 73% (31-73) Lymphocytes (%) (Auto) 18% (24-48) Monocytes (%) (Auto) 6% (0-9) Eosinophils (%) (Auto) 1% (0-3) Basophils (%) (Auto) 1% (0-3) Neutrophils # (Auto) 9.2x10^3uL (1.8-7.7) Lymphocytes # (Auto) 2.3x10^3/uL (1.0-4.8) Monocytes # (Auto) 0.8x10^3/uL (0.0-1.1) Eosinophils # (Auto) 0.2x10^3/uL (0.0-0.7) Basophils # (Auto) 0.2x10^3/uL (0.0-0.2) Sodium Level 133mmol/L (136-145) Potassium Level 4.5mmol/L (3.5-5.1) Chloride Level 96mmol/L (98-107) Carbon Dioxide Level 30mmol/L (21-32) Anion Gap 7 (6-14) Blood Urea Nitrogen 8mg/dL (7-20) Creatinine 0.6mg/dL (0.6-1.0) Estimated GFR (Cockcroft-Gault) 132.7 Glucose Level 380mg/dL (70-99) Calcium Level 8.7mg/dL (8.5-10.1) Lactic Acid Level 1.1mmol/L (0.4-2.0) Glucose (Fingerstick) 289mg/dL (70-99) Test 02/11/17 19:30 02/11/17 21:00 02/12/17 05:55 02/12/17 07:24 Glucose (Fingerstick) 231mg/dL (70-99) 222mg/dL (70-99) 418mg/dL (70-99) White Blood Count 11.1x10^3/uL (4.0-11.0) Red Blood Count 4.35x10^6/uL (3.50-5.40) Hemoglobin 11.2g/dL (12.0-15.5) Hematocrit 36.0% (36.0-47.0) Mean Corpuscular Volume 83fL (79-100) Mean Corpuscular Hemoglobin 26pg (25-35) Mean Corpuscular Hemoglobin Concent 31g/dL (31-37) Red Cell Distribution Width 14.7% (11.5-14.5) Platelet Count 314x10^3/uL (140-400) Neutrophils (%) (Auto) 85% (31-73) Lymphocytes (%) (Auto) 11% (24-48) Monocytes (%) (Auto) 3% (0-9) Eosinophils (%) (Auto) 0% (0-3) Basophils (%) (Auto) 0% (0-3) Neutrophils # (Auto) 9.4x10^3uL (1.8-7.7) Lymphocytes # (Auto) 1.2x10^3/uL (1.0-4.8) Monocytes # (Auto) 0.4x10^3/uL (0.0-1.1) Eosinophils # (Auto) 0.0x10^3/uL (0.0-0.7) Basophils # (Auto) 0.0x10^3/uL (0.0-0.2) Sodium Level 132mmol/L (136-145) Potassium Level 4.5mmol/L (3.5-5.1) Chloride Level 99mmol/L (98-107) Carbon Dioxide Level 27mmol/L (21-32) Anion Gap 6 (6-14) Blood Urea Nitrogen 7mg/dL (7-20) Creatinine 0.6mg/dL (0.6-1.0) Estimated GFR (Cockcroft-Gault) 132.7 Glucose Level 420mg/dL (70-99) Calcium Level 8.6mg/dL (8.5-10.1) Objective Assessment Leukocytosis - Received Decadron 02/11 Perineal abscess s/p I an D 02/11 DM - s/p Steroids Yeast in urine Plan Plan of Care Recommended Vanc/Zosyn/Clinda from ER - will cont Add Fluconazole F/u cults and hope to change to po soon Local wound care F/u labs Thank you # [id number] ANNA OLVERA MD Feb 12, 2017 08:53
--- NOTE | 2017-02-12 08:55 | PDOC ---
PROGRESS NOTES Chief Complaint Chief Complaint sepsis, cellulitis abscess in her buttocks/vulva. DM2, poor control obeisty, BMI 32 htn UTI History of Present Illness History of Present Illness s/p Surg POD #1 ID following increase insulin, start metformin, A1c hgb pending pain improved Vitals Vitals Vital Signs Date Time Temp Pulse Resp B/P Pulse Ox O2 Delivery O2 Flow Rate FiO2 02/12/17 07:00 97.9 93 18 104/65 97 Nasal Cannula 3.0 97.9 Physical Exam General: Alert, Oriented X3, Cooperative Heart: Regular rate Lungs: Clear Abdomen: Soft, No tenderness Extremities: No clubbing, No cyanosis Labs LABS Laboratory Tests Test 02/11/17 11:30 02/11/17 13:30 02/11/17 15:30 02/11/17 18:25 Urine Collection Type Unknown Urine Color Yellow Urine Clarity Turbid Urine pH 6.0 Urine Specific [place] 1.010 Urine Protein Negativemg/dL (NEG-TRACE) Urine Glucose (UA) >=1000mg/dL (NEG) Urine Ketones (Stick) 15mg/dL (NEG) Urine Blood Small (NEG) Urine Nitrite Negative (NEG) Urine Bilirubin Negative (NEG) Urine Urobilinogen Dipstick 0.2mg/dL (0.2 mg/dL) Urine Leukocyte Esterase Large (NEG) Urine RBC 11-20/HPF (0-2) Urine WBC 20-40/HPF (0-4) Urine Squamous Epithelial Cells Few/LPF Urine Bacteria Many/HPF (0-FEW) Urine Yeast Present/HPF White Blood Count 12.5x10^3/uL (4.0-11.0) Red Blood Count 4.49x10^6/uL (3.50-5.40) Hemoglobin 11.7g/dL (12.0-15.5) Hematocrit 36.9% (36.0-47.0) Mean Corpuscular Volume 82fL (79-100) Mean Corpuscular Hemoglobin 26pg (25-35) Mean Corpuscular Hemoglobin Concent 32g/dL (31-37) Red Cell Distribution Width 14.9% (11.5-14.5) Platelet Count 341x10^3/uL (140-400) Neutrophils (%) (Auto) 73% (31-73) Lymphocytes (%) (Auto) 18% (24-48) Monocytes (%) (Auto) 6% (0-9) Eosinophils (%) (Auto) 1% (0-3) Basophils (%) (Auto) 1% (0-3) Neutrophils # (Auto) 9.2x10^3uL (1.8-7.7) Lymphocytes # (Auto) 2.3x10^3/uL (1.0-4.8) Monocytes # (Auto) 0.8x10^3/uL (0.0-1.1) Eosinophils # (Auto) 0.2x10^3/uL (0.0-0.7) Basophils # (Auto) 0.2x10^3/uL (0.0-0.2) Sodium Level 133mmol/L (136-145) Potassium Level 4.5mmol/L (3.5-5.1) Chloride Level 96mmol/L (98-107) Carbon Dioxide Level 30mmol/L (21-32) Anion Gap 7 (6-14) Blood Urea Nitrogen 8mg/dL (7-20) Creatinine 0.6mg/dL (0.6-1.0) Estimated GFR (Cockcroft-Gault) 132.7 Glucose Level 380mg/dL (70-99) Calcium Level 8.7mg/dL (8.5-10.1) Lactic Acid Level 1.1mmol/L (0.4-2.0) Glucose (Fingerstick) 289mg/dL (70-99) Test 02/11/17 19:30 02/11/17 21:00 02/12/17 05:55 02/12/17 07:24 Glucose (Fingerstick) 231mg/dL (70-99) 222mg/dL (70-99) 418mg/dL (70-99) White Blood Count 11.1x10^3/uL (4.0-11.0) Red Blood Count 4.35x10^6/uL (3.50-5.40) Hemoglobin 11.2g/dL (12.0-15.5) Hematocrit 36.0% (36.0-47.0) Mean Corpuscular Volume 83fL (79-100) Mean Corpuscular Hemoglobin 26pg (25-35) Mean Corpuscular Hemoglobin Concent 31g/dL (31-37) Red Cell Distribution Width 14.7% (11.5-14.5) Platelet Count 314x10^3/uL (140-400) Neutrophils (%) (Auto) 85% (31-73) Lymphocytes (%) (Auto) 11% (24-48) Monocytes (%) (Auto) 3% (0-9) Eosinophils (%) (Auto) 0% (0-3) Basophils (%) (Auto) 0% (0-3) Neutrophils # (Auto) 9.4x10^3uL (1.8-7.7) Lymphocytes # (Auto) 1.2x10^3/uL (1.0-4.8) Monocytes # (Auto) 0.4x10^3/uL (0.0-1.1) Eosinophils # (Auto) 0.0x10^3/uL (0.0-0.7) Basophils # (Auto) 0.0x10^3/uL (0.0-0.2) Sodium Level 132mmol/L (136-145) Potassium Level 4.5mmol/L (3.5-5.1) Chloride Level 99mmol/L (98-107) Carbon Dioxide Level 27mmol/L (21-32) Anion Gap 6 (6-14) Blood Urea Nitrogen 7mg/dL (7-20) Creatinine 0.6mg/dL (0.6-1.0) Estimated GFR (Cockcroft-Gault) 132.7 Glucose Level 420mg/dL (70-99) Calcium Level 8.6mg/dL (8.5-10.1) Review of Systems Review of Systems no n.v.d pain better Assessment and Plan Assessmemt and Plan Problems Medical Problems: (1) Chronic vulvitis Status: Acute (2) Gluteal abscess Status: Acute (3) Hyperglycemia Status: Acute (4) Leukocytosis Status: Acute (5) Perineal abscess Status: Acute (6) Vaginal discharge Status: Acute (7) Vulvar inflammation Status: Acute Problems: Comment Review of Relevant I have reviewed the following items pat (where applicable) has been applied. Labs Laboratory Tests Test 02/11/17 11:30 02/11/17 13:30 02/11/17 15:30 02/11/17 18:25 Urine Collection Type Unknown Urine Color Yellow Urine Clarity Turbid Urine pH 6.0 Urine Specific [place] 1.010 Urine Protein Negativemg/dL (NEG-TRACE) Urine Glucose (UA) >=1000mg/dL (NEG) Urine Ketones (Stick) 15mg/dL (NEG) Urine Blood Small (NEG) Urine Nitrite Negative (NEG) Urine Bilirubin Negative (NEG) Urine Urobilinogen Dipstick 0.2mg/dL (0.2 mg/dL) Urine Leukocyte Esterase Large (NEG) Urine RBC 11-20/HPF (0-2) Urine WBC 20-40/HPF (0-4) Urine Squamous Epithelial Cells Few/LPF Urine Bacteria Many/HPF (0-FEW) Urine Yeast Present/HPF White Blood Count 12.5x10^3/uL (4.0-11.0) Red Blood Count 4.49x10^6/uL (3.50-5.40) Hemoglobin 11.7g/dL (12.0-15.5) Hematocrit 36.9% (36.0-47.0) Mean Corpuscular Volume 82fL (79-100) Mean Corpuscular Hemoglobin 26pg (25-35) Mean Corpuscular Hemoglobin Concent 32g/dL (31-37) Red Cell Distribution Width 14.9% (11.5-14.5) Platelet Count 341x10^3/uL (140-400) Neutrophils (%) (Auto) 73% (31-73) Lymphocytes (%) (Auto) 18% (24-48) Monocytes (%) (Auto) 6% (0-9) Eosinophils (%) (Auto) 1% (0-3) Basophils (%) (Auto) 1% (0-3) Neutrophils # (Auto) 9.2x10^3uL (1.8-7.7) Lymphocytes # (Auto) 2.3x10^3/uL (1.0-4.8) Monocytes # (Auto) 0.8x10^3/uL (0.0-1.1) Eosinophils # (Auto) 0.2x10^3/uL (0.0-0.7) Basophils # (Auto) 0.2x10^3/uL (0.0-0.2) Sodium Level 133mmol/L (136-145) Potassium Level 4.5mmol/L (3.5-5.1) Chloride Level 96mmol/L (98-107) Carbon Dioxide Level 30mmol/L (21-32) Anion Gap 7 (6-14) Blood Urea Nitrogen 8mg/dL (7-20) Creatinine 0.6mg/dL (0.6-1.0) Estimated GFR (Cockcroft-Gault) 132.7 Glucose Level 380mg/dL (70-99) Calcium Level 8.7mg/dL (8.5-10.1) Lactic Acid Level 1.1mmol/L (0.4-2.0) Glucose (Fingerstick) 289mg/dL (70-99) Test 02/11/17 19:30 02/11/17 21:00 02/12/17 05:55 02/12/17 07:24 Glucose (Fingerstick) 231mg/dL (70-99) 222mg/dL (70-99) 418mg/dL (70-99) White Blood Count 11.1x10^3/uL (4.0-11.0) Red Blood Count 4.35x10^6/uL (3.50-5.40) Hemoglobin 11.2g/dL (12.0-15.5) Hematocrit 36.0% (36.0-47.0) Mean Corpuscular Volume 83fL (79-100) Mean Corpuscular Hemoglobin 26pg (25-35) Mean Corpuscular Hemoglobin Concent 31g/dL (31-37) Red Cell Distribution Width 14.7% (11.5-14.5) Platelet Count 314x10^3/uL (140-400) Neutrophils (%) (Auto) 85% (31-73) Lymphocytes (%) (Auto) 11% (24-48) Monocytes (%) (Auto) 3% (0-9) Eosinophils (%) (Auto) 0% (0-3) Basophils (%) (Auto) 0% (0-3) Neutrophils # (Auto) 9.4x10^3uL (1.8-7.7) Lymphocytes # (Auto) 1.2x10^3/uL (1.0-4.8) Monocytes # (Auto) 0.4x10^3/uL (0.0-1.1) Eosinophils # (Auto) 0.0x10^3/uL (0.0-0.7) Basophils # (Auto) 0.0x10^3/uL (0.0-0.2) Sodium Level 132mmol/L (136-145) Potassium Level 4.5mmol/L (3.5-5.1) Chloride Level 99mmol/L (98-107) Carbon Dioxide Level 27mmol/L (21-32) Anion Gap 6 (6-14) Blood Urea Nitrogen 7mg/dL (7-20) Creatinine 0.6mg/dL (0.6-1.0) Estimated GFR (Cockcroft-Gault) 132.7 Glucose Level 420mg/dL (70-99) Calcium Level 8.6mg/dL (8.5-10.1) Laboratory Tests Test 02/11/17 11:30 02/11/17 13:30 02/11/17 15:30 02/11/17 18:25 Urine Collection Type Unknown Urine Color Yellow Urine Clarity Turbid Urine pH 6.0 Urine Specific [place] 1.010 Urine Protein Negativemg/dL (NEG-TRACE) Urine Glucose (UA) >=1000mg/dL (NEG) Urine Ketones (Stick) 15mg/dL (NEG) Urine Blood Small (NEG) Urine Nitrite Negative (NEG) Urine Bilirubin Negative (NEG) Urine Urobilinogen Dipstick 0.2mg/dL (0.2 mg/dL) Urine Leukocyte Esterase Large (NEG) Urine RBC 11-20/HPF (0-2) Urine WBC 20-40/HPF (0-4) Urine Squamous Epithelial Cells Few/LPF Urine Bacteria Many/HPF (0-FEW) Urine Yeast Present/HPF White Blood Count 12.5x10^3/uL (4.0-11.0) Red Blood Count 4.49x10^6/uL (3.50-5.40) Hemoglobin 11.7g/dL (12.0-15.5) Hematocrit 36.9% (36.0-47.0) Mean Corpuscular Volume 82fL (79-100) Mean Corpuscular Hemoglobin 26pg (25-35) Mean Corpuscular Hemoglobin Concent 32g/dL (31-37) Red Cell Distribution Width 14.9% (11.5-14.5) Platelet Count 341x10^3/uL (140-400) Neutrophils (%) (Auto) 73% (31-73) Lymphocytes (%) (Auto) 18% (24-48) Monocytes (%) (Auto) 6% (0-9) Eosinophils (%) (Auto) 1% (0-3) Basophils (%) (Auto) 1% (0-3) Neutrophils # (Auto) 9.2x10^3uL (1.8-7.7) Lymphocytes # (Auto) 2.3x10^3/uL (1.0-4.8) Monocytes # (Auto) 0.8x10^3/uL (0.0-1.1) Eosinophils # (Auto) 0.2x10^3/uL (0.0-0.7) Basophils # (Auto) 0.2x10^3/uL (0.0-0.2) Sodium Level 133mmol/L (136-145) Potassium Level 4.5mmol/L (3.5-5.1) Chloride Level 96mmol/L (98-107) Carbon Dioxide Level 30mmol/L (21-32) Anion Gap 7 (6-14) Blood Urea Nitrogen 8mg/dL (7-20) Creatinine 0.6mg/dL (0.6-1.0) Estimated GFR (Cockcroft-Gault) 132.7 Glucose Level 380mg/dL (70-99) Calcium Level 8.7mg/dL (8.5-10.1) Lactic Acid Level 1.1mmol/L (0.4-2.0) Glucose (Fingerstick) 289mg/dL (70-99) Test 02/11/17 19:30 02/11/17 21:00 02/12/17 05:55 02/12/17 07:24 Glucose (Fingerstick) 231mg/dL (70-99) 222mg/dL (70-99) 418mg/dL (70-99) White Blood Count 11.1x10^3/uL (4.0-11.0) Red Blood Count 4.35x10^6/uL (3.50-5.40) Hemoglobin 11.2g/dL (12.0-15.5) Hematocrit 36.0% (36.0-47.0) Mean Corpuscular Volume 83fL (79-100) Mean Corpuscular Hemoglobin 26pg (25-35) Mean Corpuscular Hemoglobin Concent 31g/dL (31-37) Red Cell Distribution Width 14.7% (11.5-14.5) Platelet Count 314x10^3/uL (140-400) Neutrophils (%) (Auto) 85% (31-73) Lymphocytes (%) (Auto) 11% (24-48) Monocytes (%) (Auto) 3% (0-9) Eosinophils (%) (Auto) 0% (0-3) Basophils (%) (Auto) 0% (0-3) Neutrophils # (Auto) 9.4x10^3uL (1.8-7.7) Lymphocytes # (Auto) 1.2x10^3/uL (1.0-4.8) Monocytes # (Auto) 0.4x10^3/uL (0.0-1.1) Eosinophils # (Auto) 0.0x10^3/uL (0.0-0.7) Basophils # (Auto) 0.0x10^3/uL (0.0-0.2) Sodium Level 132mmol/L (136-145) Potassium Level 4.5mmol/L (3.5-5.1) Chloride Level 99mmol/L (98-107) Carbon Dioxide Level 27mmol/L (21-32) Anion Gap 6 (6-14) Blood Urea Nitrogen 7mg/dL (7-20) Creatinine 0.6mg/dL (0.6-1.0) Estimated GFR (Cockcroft-Gault) 132.7 Glucose Level 420mg/dL (70-99) Calcium Level 8.6mg/dL (8.5-10.1) Microbiology 02/11/17 Wet Prep - Final, Complete Medications Current Medications Fentanyl Citrate 50 mcg 50 mcg PRN Q15MIN PRN IV PAIN GREATER THAN 3/10 Last administered on 02/11/17 17:27; Start 02/11/17 at 13:00; Stop 02/12/17 at 12:59 Sodium Chloride (Iv Sodium Chloride 0.9% 1000ml Bag) 1,000 ml @ 1,000 mls/hr 1X ONCE IV Last administered on 02/11/17 13:48; Start 02/11/17 at 13:00; Stop 02/11/17 at 13:59; Status DC Iohexol (Omnipaque 300 Mg/ml) 75 ml 1X ONCE IV Last administered on 02/11/17 13:30; Start 02/11/17 at 13:30; Stop 02/11/17 at 13:31; Status DC Info 1 each 1 each PRN DAILY PRN MC SEE COMMENTS; Start 02/11/17 at 13:30; Stop 02/13/17 at 13:29 Vancomycin HCl 250 ml @ 250 mls/hr 1X ONCE IV Last administered on 02/11/17 17:35; Start 02/11/17 at 15:00; Stop 02/11/17 at 15:59; Status DC Piperacillin Sod/ Tazobactam Sod/ Sodium Chloride (Zosyn/Iv Sodium Chloride 0.9 % 100ml) 100 ml @ 200 mls/hr 1X ONCE IV Last administered on 02/11/17 16:06 ; Start 02/11/17 at 15:00; Stop 02/11/17 at 15:29; Status DC Ondansetron HCl (Zofran) 4 mg PRN Q8HRS PRN IV NAUSEA/VOMITING Last administered on 02/11/17 21:45; Start 02/11/17 at 15:30; Stop 02/12/17 at 15:29 Morphine Sulfate 4 mg 4 mg PRN Q2HR PRN IV PAIN Last administered on 02/12/17 06:15; Start 02/11/17 at 15:30; Stop 02/12/17 at 15:29 Sodium Chloride 1,000 ml @ 2,190 mls/hr Q28M IV ; Start 02/11/17 at 15:30; Stop 02/11/17 at 16:30; Status DC Clindamycin Phosphate (Cleocin 600 Mg Premix) 50 ml @ 100 mls/hr 1X ONCE IV Last administered on 02/11/17 19:03; Start 02/11/17 at 16:00; Stop 02/11/17 at 16:29; Status DC Ondansetron HCl (Zofran) 4 mg PRN Q6HRS PRN IV NAUSEA/VOMITING; Start 02/11/17 at 16:15; Stop 02/12/17 at 16:14 Fentanyl Citrate (Fentanyl 2ml Vial) 25 mcg PRN Q5MIN PRN IV MILD PAIN; Start 02/11/17 at 16:15; Stop 02/12/17 at 16:14 Fentanyl Citrate (Fentanyl 2ml Vial) 50 mcg PRN Q5MIN PRN IV MODERATE PAIN; Start 02/11/17 at 16:15; Stop 02/12/17 at 16:14 Morphine Sulfate 1 mg 1 mg PRN Q10MIN PRN IV SEVERE PAIN; Start 02/11/17 at 16: 15; Stop 02/12/17 at 16:14 Lactated Ringer's (Iv Lactated Ringers) 1,000 ml @ 30 mls/hr Q24H IV Last administered on 02/11/17t 18:27; Start 02/11/17 at 16:08; Stop 02/12/17 at 04:07 ; Status DC Lidocaine HCl 2 ml PRN 1X PRN ID PRIOR TO IV START; Start 02/11/17 at 16:15; Stop 02/12/17 at 16:14 Hydromorphone HCl (Dilaudid) 0.5 mg PRN Q10MIN PRN IV SEV PAIN, Second choice; Start 02/11/17 at 16:15; Stop 02/12/17 at 16:14 Prochlorperazine Edisylate (Compazine) 5 mg PACU PRN PRN IV NAUSEA, MRX1; Start 02/11/17 at 16:15; Stop 02/12/17 at 16:14 Dexamethasone Sodium Phosphate (Decadron) 20 mg STK-MED ONCE .ROUTE ; Start at 16:16; Stop 02/11/17 at 16:17; Status DC Ondansetron HCl 4 mg 4 mg STK-MED ONCE .ROUTE ; Start 02/11/17 at 16:16; Stop at 16:17; Status DC Propofol (Diprivan) 0 ml @ As Directed STK-MED ONCE IV ; Start 02/11/17 at 16:16 ; Stop 02/11/17 at 16:17; Status DC Lidocaine HCl (Lidocaine HCl 2% Abboject) 100 mg STK-MED ONCE .ROUTE ; Start at 16:16; Stop 02/11/17 at 16:17; Status DC Midazolam HCl (Versed) 2 mg STK-MED ONCE .ROUTE ; Start 02/11/17 at 16:16; Stop 02/11/17 at 16:17; Status DC Fentanyl Citrate (Fentanyl 2ml Vial) 100 mcg STK-MED ONCE .ROUTE ; Start at 16:16; Stop 02/11/17 at 16:17; Status DC Insulin Aspart (Novolog) 0-9 UNITS TIDWMEALS SQ ; Start 02/12/17 at 08:00 Dextrose (Dextrose 50%-Water Syringe) 12.5 gm PRN Q15MIN PRN IV SEE COMMENTS; Start 02/11/17 at 17:30 Dexamethasone Sodium Phosphate (Decadron) 20 mg STK-MED ONCE .ROUTE ; Start at 17:29; Stop 02/11/17 at 17:30; Status DC Ondansetron HCl 4 mg 4 mg STK-MED ONCE .ROUTE ; Start 02/11/17 at 17:29; Stop at 17:30; Status DC Propofol (Diprivan) 20 ml @ As Directed STK-MED ONCE IV ; Start 02/11/17 at 17: 29; Stop 02/11/17 at 17:30; Status DC Lidocaine HCl (Lidocaine HCl 2% Abboject) 100 mg STK-MED ONCE .ROUTE ; Start at 17:29; Stop 02/11/17 at 17:30; Status DC Silver Nitrate/ Potassium Nitrate 1 each STK-MED ONCE TP ; Start 02/11/17 at 17: 48; Stop 02/11/17 at 17:49; Status DC Insulin Human Regular (Novolin R Vial) 10 unit 1X ONCE IV Last administered on 02/11/17t 18:50; Start 02/11/17 at 18:30; Stop 02/11/17 at 18:33; Status DC Calcium Carbonate/ Glycine (Tums) 500 mg PRN Q3HRS PRN PO HEARTBURN / GAS; Start 02/11/17 at 19:45 Simethicone (Gas-X) 80 mg PRN AFTMEALHC PRN PO GAS / BLOATING; Start 02/11/17 at 19:45 Zolpidem Tartrate (Ambien) 5 mg PRN QHS PRN PO INSOMNIA, MAY REPEAT IN 1HR; Start 02/11/17 at 19:45 Diphenhydramine HCl (Benadryl) 25 mg PRN Q6HRS PRN PO ITCHING; Start 02/11/17 at 19:45 Diphenhydramine HCl (Benadryl) 25 mg PRN Q6HRS PRN IV ITCHING; Start 02/11/17 at 20:00 Sodium Chloride (Normal Saline Flush) 3 ml QSHIFT PRN IV AFTER MEDS AND BLOOD DRAWS; Start 02/11/17 at 19:45 Dextrose (Dextrose 50%-Water Syringe) 12.5 gm PRN Q15MIN PRN IV SEE COMMENTS; Start 02/11/17 at 19:45; Status Cancel Oxycodone/ Acetaminophen (Percocet 5/325) 2 tab PRN Q4HRS PRN PO MODERATE PAIN , SEVERE PAIN; Start 02/11/17 at 19:45 Ketorolac Tromethamine (Toradol) 30 mg PRN Q6HRS PRN IV PAIN; Start 02/11/17 at 19:45; Stop 02/16/17 at 19:44 Gabapentin (Neurontin) 600 mg Q8HRS PO Last administered on 02/12/17t 06:08; Start 02/11/17 at 22:00 Ondansetron HCl (Zofran) 4 mg PRN Q6HRS PRN IV NAUESA, 1ST CHOICE; Start at 19:45 Prochlorperazine Edisylate (Compazine) 5 mg PRN Q6HRS PRN IV N/V, 2nd Choice, MR X1; Start 02/11/17 at 19:45 Insulin Aspart (Novolog) 0-9 UNITS TIDWMEALS SQ ; Start 02/12/17 at 08:00 Dextrose (Dextrose 50%-Water Syringe) 12.5 gm PRN Q15MIN PRN IV SEE COMMENTS; Start 02/11/17 at 19:45; Status Cancel Insulin Human Regular (Novolin R Vial) 10 unit 1X ONCE IV Last administered on 02/11/17t 20:44; Start 02/11/17 at 20:30; Stop 02/11/17 at 20:31; Status DC Vancomycin HCl 1 each 1 each PRN DAILY PRN MC SEE COMMENTS; Start 02/12/17 at 08:00 Piperacillin Sod/ Tazobactam Sod 4.5 gm/Sodium Chloride 100 ml @ 200 mls/hr Q6HRS IV ; Start 02/12/17 at 08:00 Clindamycin Phosphate 50 ml @ 100 mls/hr Q8HRS IV ; Start 02/12/17 at 08:00 Vancomycin HCl/ Sodium Chloride (Iv Sodium Chloride 0.9% 500ml Bag) 500 ml @ 250 mls/hr 1X ONCE IV ; Start 02/12/17 at 09:00; Stop 02/12/17 at 10:59 Insulin Aspart (Novolog) 15 units 1X ONCE SQ ; Start 02/12/17 at 08:30; Stop at 08:37; Status DC Insulin Detemir (Levemir) 12 units 1X ONCE SQ ; Start 02/12/17 at 08:30; Stop 02/12/17 at 08:37; Status DC Insulin Aspart (Novolog) 9 units TIDAC SQ ; Start 02/12/17 at 11:30 Metformin HCl (Glucophage) 850 mg BIDWMEALS PO ; Start 02/12/17 at 09:30; Stop 02/12/17 at 09:30; Status DC Metformin HCl (Glucophage) 850 mg BIDWMEALS PO ; Start 02/13/17 at 17:00 Fluconazole (Diflucan) 200 mg DAILY PO ; Start 02/12/17 at 09:30 Vitals/I & O Vital Sign - Last 24 Hours 02/11/17 02/11/17 02/11/17 02/11/17 11:35 13:30 13:47 14:00 Temp 98.0 98.0 Pulse 110 105 110 Resp 18 20 20 19 B/P 152/87 149/93 157/86 Pulse Ox 98 94 100 99 O2 Delivery Room Air Room Air Room Air 02/11/17 02/11/17 02/11/17 02/11/17 14:30 15:00 16:00 17:00 Pulse 96 90 94 87 Resp 18 18 20 18 B/P 145/72 169/83 144/82 138/80 Pulse Ox 98 98 98 97 O2 Delivery Room Air Room Air 02/11/17 02/11/17 02/11/17 02/11/17 17:27 18:10 19:26 19:52 Temp 97.8 97.7 97.8 97.7 Pulse 103 104 99 Resp 20 18 18 14 B/P 149/82 107/64 118/77 Pulse Ox 98 99 100 93 O2 Delivery Room Air Room Air Simple Mask Room Air O2 Flow Rate 10 02/11/17 02/11/17 02/11/1725/17 20:07 20:22 20:37 20:50 Temp 97.0 98.0 97.0 98.0 Pulse 92 91 93 93 Resp 16 16 16 18 B/P 129/76 136/77 147/80 144/78 Pulse Ox 100 100 99 91 O2 Delivery Nasal Cannula Nasal Cannula Nasal Cannula Nasal Cannula O2 Flow Rate 2 2 2 2.0 02/11/17 02/11/17 02/11/17 02/11/17 20:50 21:05 21:20 21:35 Pulse 94 97 94 Resp 18 18 18 B/P 145/86 138/76 132/78 Pulse Ox 91 92 96 O2 Delivery Nasal Cannula Nasal Cannula Nasal Cannula Nasal Cannula O2 Flow Rate 3.0 2.0 3.0 3.0 02/11/17 02/11/17 02/11/17 02/11/17 21:46 22:05 22:35 23:35 Pulse 92 94 104 Resp 20 18 18 18 B/P 123/72 128/77 102/64 Pulse Ox 96 97 98 92 O2 Delivery Nasal Cannula Nasal Cannula Nasal Cannula Nasal Cannula O2 Flow Rate 3.0 3.0 3.0 3.0 02/12/17 02/12/17 02/12/17 02/12/17 00:35 02:53 03:00 06:15 Temp 98.4 98.4 Pulse 88 88 Resp 18 20 18 20 B/P 129/81 146/85 Pulse Ox 99 92 97 97 O2 Delivery Nasal Cannula Nasal Cannula Nasal Cannula Nasal Cannula O2 Flow Rate 3.0 3.0 3.0 2.0 02/12/17 02/12/17 06:45 07:00 Temp 97.9 97.9 Pulse 93 Resp 20 18 B/P 104/65 Pulse Ox 97 97 O2 Delivery Nasal Cannula Nasal Cannula O2 Flow Rate 2.0 3.0 Intake and Output 02/11/17 02/11/17 02/12/17 15:00 23:00 07:00 Intake Total 1000 ml 1350 ml 1153 ml Output Total 300 ml 1025 ml Balance 1000 ml 1050 ml 128 ml GINA REYNOLDS MD Feb 12, 2017 08:55
[2017-02-12] MEDS ORDERED: VANCOMYCIN 2 GM in IV NORMAL SALINE 500ML BAG 500 ML IV ONE (09:00)
[2017-02-12] MEDS: PIPERACILLIN/TAZOBACTAM 4.5 GM in IV NORMAL SALINE 100ML 100 ML IV SCH ×4 (09:07→23:31)
[2017-02-12] MEDS: CLINDAMYCIN 600MG PREMIX 50 ML IV SCH ×3 (09:08→21:53)
[2017-02-12] MEDS: FLUCONAZOLE 100 MG TABLET. PO SCH (09:13)
[2017-02-12] MEDS ORDERED: metFORMIN 850 MG TABLET PO SCH (09:30)
[2017-02-12 09:35] LABS: PLT ESTIMATE ADEQUATE (ADEQUATE)
--- NOTE | 2017-02-12 09:58 | PDOC ---
PROGRESS NOTES Subjective Subjective comfortable, no new problems Objective Objective Vital Signs Date Time Temp Pulse Resp B/P Pulse Ox O2 Delivery O2 Flow Rate FiO2 02/12/17 07:00 97.9 93 18 104/65 97 Nasal Cannula 3.0 97.9 Intake and Output 02/12/17 07:00 Intake Total 3503 ml Output Total 1325 ml Balance 2178 ml Intake Oral 410 ml IV Total 3093 ml Output Urine Total 1325 ml Stool Total 0 ml Physical Exam Physical Exam gluteal wound with intact dressing Abdomen: Soft, No tenderness Heart: Regular rate General: Alert, Oriented X3 HEENT: Atraumatic Lungs: Clear to auscultation Neuro: Normal speech Psych/Mental Status: Mental status NL Assessment Assessment Problems Medical Problems: (1) Chronic vulvitis Status: Acute (2) Gluteal abscess Status: Acute (3) Hyperglycemia Status: Acute (4) Leukocytosis Status: Acute (5) Perineal abscess Status: Acute (6) Vaginal discharge Status: Acute (7) Vulvar inflammation Status: Acute Plan Plan of Care Initiate wound care, consult wound care nurse Comment Review of Relevant I have reviewed the following items pat (where applicable) has been applied. Labs Laboratory Tests Test 02/11/17 11:30 02/11/17 13:30 02/11/17 15:30 02/11/17 18:25 Urine Collection Type Unknown Urine Color Yellow Urine Clarity Turbid Urine pH 6.0 Urine Specific [place] 1.010 Urine Protein Negativemg/dL (NEG-TRACE) Urine Glucose (UA) >=1000mg/dL (NEG) Urine Ketones (Stick) 15mg/dL (NEG) Urine Blood Small (NEG) Urine Nitrite Negative (NEG) Urine Bilirubin Negative (NEG) Urine Urobilinogen Dipstick 0.2mg/dL (0.2 mg/dL) Urine Leukocyte Esterase Large (NEG) Urine RBC 11-20/HPF (0-2) Urine WBC 20-40/HPF (0-4) Urine Squamous Epithelial Cells Few/LPF Urine Bacteria Many/HPF (0-FEW) Urine Yeast Present/HPF White Blood Count 12.5x10^3/uL (4.0-11.0) Red Blood Count 4.49x10^6/uL (3.50-5.40) Hemoglobin 11.7g/dL (12.0-15.5) Hematocrit 36.9% (36.0-47.0) Mean Corpuscular Volume 82fL (79-100) Mean Corpuscular Hemoglobin 26pg (25-35) Mean Corpuscular Hemoglobin Concent 32g/dL (31-37) Red Cell Distribution Width 14.9% (11.5-14.5) Platelet Count 341x10^3/uL (140-400) Neutrophils (%) (Auto) 73% (31-73) Lymphocytes (%) (Auto) 18% (24-48) Monocytes (%) (Auto) 6% (0-9) Eosinophils (%) (Auto) 1% (0-3) Basophils (%) (Auto) 1% (0-3) Neutrophils # (Auto) 9.2x10^3uL (1.8-7.7) Lymphocytes # (Auto) 2.3x10^3/uL (1.0-4.8) Monocytes # (Auto) 0.8x10^3/uL (0.0-1.1) Eosinophils # (Auto) 0.2x10^3/uL (0.0-0.7) Basophils # (Auto) 0.2x10^3/uL (0.0-0.2) Sodium Level 133mmol/L (136-145) Potassium Level 4.5mmol/L (3.5-5.1) Chloride Level 96mmol/L (98-107) Carbon Dioxide Level 30mmol/L (21-32) Anion Gap 7 (6-14) Blood Urea Nitrogen 8mg/dL (7-20) Creatinine 0.6mg/dL (0.6-1.0) Estimated GFR (Cockcroft-Gault) 132.7 Glucose Level 380mg/dL (70-99) Calcium Level 8.7mg/dL (8.5-10.1) Lactic Acid Level 1.1mmol/L (0.4-2.0) Glucose (Fingerstick) 289mg/dL (70-99) Test 02/11/17 19:30 02/11/17 21:00 02/12/17 05:55 02/12/17 07:24 Glucose (Fingerstick) 231mg/dL (70-99) 222mg/dL (70-99) 418mg/dL (70-99) White Blood Count 11.1x10^3/uL (4.0-11.0) Red Blood Count 4.35x10^6/uL (3.50-5.40) Hemoglobin 11.2g/dL (12.0-15.5) Hematocrit 36.0% (36.0-47.0) Mean Corpuscular Volume 83fL (79-100) Mean Corpuscular Hemoglobin 26pg (25-35) Mean Corpuscular Hemoglobin Concent 31g/dL (31-37) Red Cell Distribution Width 14.7% (11.5-14.5) Platelet Count 314x10^3/uL (140-400) Neutrophils (%) (Auto) 85% (31-73) Lymphocytes (%) (Auto) 11% (24-48) Monocytes (%) (Auto) 3% (0-9) Eosinophils (%) (Auto) 0% (0-3) Basophils (%) (Auto) 0% (0-3) Neutrophils # (Auto) 9.4x10^3uL (1.8-7.7) Lymphocytes # (Auto) 1.2x10^3/uL (1.0-4.8) Monocytes # (Auto) 0.4x10^3/uL (0.0-1.1) Eosinophils # (Auto) 0.0x10^3/uL (0.0-0.7) Basophils # (Auto) 0.0x10^3/uL (0.0-0.2) Segmented Neutrophils % 82% (35-66) Band Neutrophils % 4% (0-9) Lymphocytes % 12% (24-48) Monocytes % 2% (0-10) Platelet Estimate Adequate (ADEQUATE) Sodium Level 132mmol/L (136-145) Potassium Level 4.5mmol/L (3.5-5.1) Chloride Level 99mmol/L (98-107) Carbon Dioxide Level 27mmol/L (21-32) Anion Gap 6 (6-14) Blood Urea Nitrogen 7mg/dL (7-20) Creatinine 0.6mg/dL (0.6-1.0) Estimated GFR (Cockcroft-Gault) 132.7 Glucose Level 420mg/dL (70-99) Calcium Level 8.6mg/dL (8.5-10.1) Laboratory Tests Test 02/11/17 11:30 02/11/17 13:30 02/11/17 15:30 02/11/17 18:25 Urine Collection Type Unknown Urine Color Yellow Urine Clarity Turbid Urine pH 6.0 Urine Specific [place] 1.010 Urine Protein Negativemg/dL (NEG-TRACE) Urine Glucose (UA) >=1000mg/dL (NEG) Urine Ketones (Stick) 15mg/dL (NEG) Urine Blood Small (NEG) Urine Nitrite Negative (NEG) Urine Bilirubin Negative (NEG) Urine Urobilinogen Dipstick 0.2mg/dL (0.2 mg/dL) Urine Leukocyte Esterase Large (NEG) Urine RBC 11-20/HPF (0-2) Urine WBC 20-40/HPF (0-4) Urine Squamous Epithelial Cells Few/LPF Urine Bacteria Many/HPF (0-FEW) Urine Yeast Present/HPF White Blood Count 12.5x10^3/uL (4.0-11.0) Red Blood Count 4.49x10^6/uL (3.50-5.40) Hemoglobin 11.7g/dL (12.0-15.5) Hematocrit 36.9% (36.0-47.0) Mean Corpuscular Volume 82fL (79-100) Mean Corpuscular Hemoglobin 26pg (25-35) Mean Corpuscular Hemoglobin Concent 32g/dL (31-37) Red Cell Distribution Width 14.9% (11.5-14.5) Platelet Count 341x10^3/uL (140-400) Neutrophils (%) (Auto) 73% (31-73) Lymphocytes (%) (Auto) 18% (24-48) Monocytes (%) (Auto) 6% (0-9) Eosinophils (%) (Auto) 1% (0-3) Basophils (%) (Auto) 1% (0-3) Neutrophils # (Auto) 9.2x10^3uL (1.8-7.7) Lymphocytes # (Auto) 2.3x10^3/uL (1.0-4.8) Monocytes # (Auto) 0.8x10^3/uL (0.0-1.1) Eosinophils # (Auto) 0.2x10^3/uL (0.0-0.7) Basophils # (Auto) 0.2x10^3/uL (0.0-0.2) Sodium Level 133mmol/L (136-145) Potassium Level 4.5mmol/L (3.5-5.1) Chloride Level 96mmol/L (98-107) Carbon Dioxide Level 30mmol/L (21-32) Anion Gap 7 (6-14) Blood Urea Nitrogen 8mg/dL (7-20) Creatinine 0.6mg/dL (0.6-1.0) Estimated GFR (Cockcroft-Gault) 132.7 Glucose Level 380mg/dL (70-99) Calcium Level 8.7mg/dL (8.5-10.1) Lactic Acid Level 1.1mmol/L (0.4-2.0) Glucose (Fingerstick) 289mg/dL (70-99) Test 02/11/17 19:30 02/11/17 21:00 02/12/17 05:55 02/12/17 07:24 Glucose (Fingerstick) 231mg/dL (70-99) 222mg/dL (70-99) 418mg/dL (70-99) White Blood Count 11.1x10^3/uL (4.0-11.0) Red Blood Count 4.35x10^6/uL (3.50-5.40) Hemoglobin 11.2g/dL (12.0-15.5) Hematocrit 36.0% (36.0-47.0) Mean Corpuscular Volume 83fL (79-100) Mean Corpuscular Hemoglobin 26pg (25-35) Mean Corpuscular Hemoglobin Concent 31g/dL (31-37) Red Cell Distribution Width 14.7% (11.5-14.5) Platelet Count 314x10^3/uL (140-400) Neutrophils (%) (Auto) 85% (31-73) Lymphocytes (%) (Auto) 11% (24-48) Monocytes (%) (Auto) 3% (0-9) Eosinophils (%) (Auto) 0% (0-3) Basophils (%) (Auto) 0% (0-3) Neutrophils # (Auto) 9.4x10^3uL (1.8-7.7) Lymphocytes # (Auto) 1.2x10^3/uL (1.0-4.8) Monocytes # (Auto) 0.4x10^3/uL (0.0-1.1) Eosinophils # (Auto) 0.0x10^3/uL (0.0-0.7) Basophils # (Auto) 0.0x10^3/uL (0.0-0.2) Segmented Neutrophils % 82% (35-66) Band Neutrophils % 4% (0-9) Lymphocytes % 12% (24-48) Monocytes % 2% (0-10) Platelet Estimate Adequate (ADEQUATE) Sodium Level 132mmol/L (136-145) Potassium Level 4.5mmol/L (3.5-5.1) Chloride Level 99mmol/L (98-107) Carbon Dioxide Level 27mmol/L (21-32) Anion Gap 6 (6-14) Blood Urea Nitrogen 7mg/dL (7-20) Creatinine 0.6mg/dL (0.6-1.0) Estimated GFR (Cockcroft-Gault) 132.7 Glucose Level 420mg/dL (70-99) Calcium Level 8.6mg/dL (8.5-10.1) Microbiology 02/11/17 Wet Prep - Final, Complete Medications Current Medications Fentanyl Citrate 50 mcg 50 mcg PRN Q15MIN PRN IV PAIN GREATER THAN 3/10 Last administered on 02/11/17 17:27; Start 02/11/17 at 13:00; Stop 02/12/17 at 12:59 Sodium Chloride (Iv Sodium Chloride 0.9% 1000ml Bag) 1,000 ml @ 1,000 mls/hr 1X ONCE IV Last administered on 02/11/17 13:48; Start 02/11/17 at 13:00; Stop 02/11/17 at 13:59; Status DC Iohexol (Omnipaque 300 Mg/ml) 75 ml 1X ONCE IV Last administered on 02/11/17 13:30; Start 02/11/17 at 13:30; Stop 02/11/17 at 13:31; Status DC Info 1 each 1 each PRN DAILY PRN MC SEE COMMENTS; Start 02/11/17 at 13:30; Stop 02/13/17 at 13:29 Vancomycin HCl 250 ml @ 250 mls/hr 1X ONCE IV Last administered on 02/11/17 17:35; Start 02/11/17 at 15:00; Stop 02/11/17 at 15:59; Status DC Piperacillin Sod/ Tazobactam Sod/ Sodium Chloride (Zosyn/Iv Sodium Chloride 0.9 % 100ml) 100 ml @ 200 mls/hr 1X ONCE IV Last administered on 02/11/17 16:06 ; Start 02/11/17 at 15:00; Stop 02/11/17 at 15:29; Status DC Ondansetron HCl (Zofran) 4 mg PRN Q8HRS PRN IV NAUSEA/VOMITING Last administered on 02/11/17 21:45; Start 02/11/17 at 15:30; Stop 02/12/17 at 15:29 Morphine Sulfate 4 mg 4 mg PRN Q2HR PRN IV PAIN Last administered on 02/12/17 09:14; Start 02/11/17 at 15:30; Stop 02/12/17 at 15:29 Sodium Chloride 1,000 ml @ 2,190 mls/hr Q28M IV ; Start 02/11/17 at 15:30; Stop 02/11/17 at 16:30; Status DC Clindamycin Phosphate (Cleocin 600 Mg Premix) 50 ml @ 100 mls/hr 1X ONCE IV Last administered on 02/11/17 19:03; Start 02/11/17 at 16:00; Stop 02/11/17 at 16:29; Status DC Ondansetron HCl (Zofran) 4 mg PRN Q6HRS PRN IV NAUSEA/VOMITING; Start 02/11/17 at 16:15; Stop 02/12/17 at 16:14 Fentanyl Citrate (Fentanyl 2ml Vial) 25 mcg PRN Q5MIN PRN IV MILD PAIN; Start 02/11/17 at 16:15; Stop 02/12/17 at 16:14 Fentanyl Citrate (Fentanyl 2ml Vial) 50 mcg PRN Q5MIN PRN IV MODERATE PAIN; Start 02/11/17 at 16:15; Stop 02/12/17 at 16:14 Morphine Sulfate 1 mg 1 mg PRN Q10MIN PRN IV SEVERE PAIN; Start 02/11/17 at 16: 15; Stop 02/12/17 at 16:14 Lactated Ringer's (Iv Lactated Ringers) 1,000 ml @ 30 mls/hr Q24H IV Last administered on 4/25/17at 18:27; Start 02/11/17 at 16:08; Stop 02/12/17 at 04:07 ; Status DC Lidocaine HCl 2 ml PRN 1X PRN ID PRIOR TO IV START; Start 02/11/17 at 16:15; Stop 02/12/17 at 16:14 Hydromorphone HCl (Dilaudid) 0.5 mg PRN Q10MIN PRN IV SEV PAIN, Second choice; Start 02/11/17 at 16:15; Stop 02/12/17 at 16:14 Prochlorperazine Edisylate (Compazine) 5 mg PACU PRN PRN IV NAUSEA, MRX1; Start 02/11/17 at 16:15; Stop 02/12/17 at 16:14 Dexamethasone Sodium Phosphate (Decadron) 20 mg STK-MED ONCE .ROUTE ; Start at 16:16; Stop 02/11/17 at 16:17; Status DC Ondansetron HCl 4 mg 4 mg STK-MED ONCE .ROUTE ; Start 02/11/17 at 16:16; Stop at 16:17; Status DC Propofol (Diprivan) 0 ml @ As Directed STK-MED ONCE IV ; Start 02/11/17 at 16:16 ; Stop 02/11/17 at 16:17; Status DC Lidocaine HCl (Lidocaine HCl 2% Abboject) 100 mg STK-MED ONCE .ROUTE ; Start at 16:16; Stop 02/11/17 at 16:17; Status DC Midazolam HCl (Versed) 2 mg STK-MED ONCE .ROUTE ; Start 02/11/17 at 16:16; Stop 02/11/17 at 16:17; Status DC Fentanyl Citrate (Fentanyl 2ml Vial) 100 mcg STK-MED ONCE .ROUTE ; Start at 16:16; Stop 02/11/17 at 16:17; Status DC Insulin Aspart (Novolog) 0-9 UNITS TIDWMEALS SQ ; Start 02/12/17 at 08:00 Dextrose (Dextrose 50%-Water Syringe) 12.5 gm PRN Q15MIN PRN IV SEE COMMENTS; Start 02/11/17 at 17:30 Dexamethasone Sodium Phosphate (Decadron) 20 mg STK-MED ONCE .ROUTE ; Start at 17:29; Stop 02/11/17 at 17:30; Status DC Ondansetron HCl 4 mg 4 mg STK-MED ONCE .ROUTE ; Start 02/11/17 at 17:29; Stop at 17:30; Status DC Propofol (Diprivan) 20 ml @ As Directed STK-MED ONCE IV ; Start 02/11/17 at 17: 29; Stop 02/11/17 at 17:30; Status DC Lidocaine HCl (Lidocaine HCl 2% Abboject) 100 mg STK-MED ONCE .ROUTE ; Start at 17:29; Stop 02/11/17 at 17:30; Status DC Silver Nitrate/ Potassium Nitrate 1 each STK-MED ONCE TP ; Start 02/11/17 at 17: 48; Stop 02/11/17 at 17:49; Status DC Insulin Human Regular (Novolin R Vial) 10 unit 1X ONCE IV Last administered on 02/11/17t 18:50; Start 02/11/17 at 18:30; Stop 02/11/17 at 18:33; Status DC Calcium Carbonate/ Glycine (Tums) 500 mg PRN Q3HRS PRN PO HEARTBURN / GAS; Start 02/11/17 at 19:45 Simethicone (Gas-X) 80 mg PRN AFTMEALHC PRN PO GAS / BLOATING; Start 02/11/17 at 19:45 Zolpidem Tartrate (Ambien) 5 mg PRN QHS PRN PO INSOMNIA, MAY REPEAT IN 1HR; Start 02/11/17 at 19:45 Diphenhydramine HCl (Benadryl) 25 mg PRN Q6HRS PRN PO ITCHING; Start 02/11/17 at 19:45 Diphenhydramine HCl (Benadryl) 25 mg PRN Q6HRS PRN IV ITCHING; Start 02/11/17 at 20:00 Sodium Chloride (Normal Saline Flush) 3 ml QSHIFT PRN IV AFTER MEDS AND BLOOD DRAWS; Start 02/11/17 at 19:45 Dextrose (Dextrose 50%-Water Syringe) 12.5 gm PRN Q15MIN PRN IV SEE COMMENTS; Start 02/11/17 at 19:45; Status Cancel Oxycodone/ Acetaminophen (Percocet 5/325) 2 tab PRN Q4HRS PRN PO MODERATE PAIN , SEVERE PAIN; Start 02/11/17 at 19:45 Ketorolac Tromethamine (Toradol) 30 mg PRN Q6HRS PRN IV PAIN; Start 02/11/17 at 19:45; Stop 02/16/17 at 19:44 Gabapentin (Neurontin) 600 mg Q8HRS PO Last administered on 02/12/17 06:08; Start 02/11/17 at 22:00 Ondansetron HCl (Zofran) 4 mg PRN Q6HRS PRN IV NAUESA, 1ST CHOICE; Start at 19:45 Prochlorperazine Edisylate (Compazine) 5 mg PRN Q6HRS PRN IV N/V, 2nd Choice, MR X1; Start 02/11/17 at 19:45 Insulin Aspart (Novolog) 0-9 UNITS TIDWMEALS SQ ; Start 02/12/17 at 08:00 Dextrose (Dextrose 50%-Water Syringe) 12.5 gm PRN Q15MIN PRN IV SEE COMMENTS; Start 02/11/17 at 19:45; Status Cancel Insulin Human Regular (Novolin R Vial) 10 unit 1X ONCE IV Last administered on 02/11/17 20:44; Start 02/11/17 at 20:30; Stop 02/11/17 at 20:31; Status DC Vancomycin HCl 1 each 1 each PRN DAILY PRN MC SEE COMMENTS; Start 02/12/17 at 08:00 Piperacillin Sod/ Tazobactam Sod 4.5 gm/Sodium Chloride 100 ml @ 200 mls/hr Q6HRS IV Last administered on 02/12/17 09:07; Start 02/12/17 at 08:00 Clindamycin Phosphate 50 ml @ 100 mls/hr Q8HRS IV Last administered on 09:08; Start 02/12/17 at 08:00 Vancomycin HCl/ Sodium Chloride (Iv Sodium Chloride 0.9% 500ml Bag) 500 ml @ 250 mls/hr 1X ONCE IV Last administered on 02/12/17 09:09; Start 02/12/17 at 09:00; Stop 02/12/17 at 10:59 Insulin Aspart (Novolog) 15 units 1X ONCE SQ Last administered on 02/12/17 09 :33; Start 02/12/17 at 08:30; Stop 02/12/17 at 08:37; Status DC Insulin Detemir (Levemir) 12 units 1X ONCE SQ Last administered on 02/12/17 09:34; Start 02/12/17 at 08:30; Stop 02/12/17 at 08:37; Status DC Insulin Aspart (Novolog) 9 units TIDAC SQ ; Start 02/12/17 at 11:30 Metformin HCl (Glucophage) 850 mg BIDWMEALS PO ; Start 02/12/17 at 09:30; Stop 02/12/17 at 09:30; Status DC Metformin HCl (Glucophage) 850 mg BIDWMEALS PO ; Start 02/13/17 at 17:00 Fluconazole (Diflucan) 200 mg DAILY PO Last administered on 02/12/17 09:13; Start 02/12/17 at 09:30 Glimepiride (Amaryl) 1 mg DAILY PO ; Start 02/12/17 at 10:00 Vitals/I & O Vital Sign - Last 24 Hours 02/11/17 02/11/17 02/11/17 02/11/17 11:35 13:30 13:47 14:00 Temp 98.0 98.0 Pulse 110 105 110 Resp 18 20 20 19 B/P 152/87 149/93 157/86 Pulse Ox 98 94 100 99 O2 Delivery Room Air Room Air Room Air 02/11/17 02/11/17 02/11/17 02/11/17 14:30 15:00 16:00 17:00 Pulse 96 90 94 87 Resp 18 18 20 18 B/P 145/72 169/83 144/82 138/80 Pulse Ox 98 98 98 97 O2 Delivery Room Air Room Air 02/11/17 02/11/17 02/11/17 02/11/17 17:27 18:10 19:26 19:52 Temp 97.8 97.7 97.8 97.7 Pulse 103 104 99 Resp 20 18 18 14 B/P 149/82 107/64 118/77 Pulse Ox 98 99 100 93 O2 Delivery Room Air Room Air Simple Mask Room Air O2 Flow Rate 10 02/11/17 02/11/17 02/11/17 02/11/17 20:07 20:22 20:37 20:50 Temp 97.0 98.0 97.0 98.0 Pulse 92 91 93 93 Resp 16 16 16 18 B/P 129/76 136/77 147/80 144/78 Pulse Ox 100 100 99 91 O2 Delivery Nasal Cannula Nasal Cannula Nasal Cannula Nasal Cannula O2 Flow Rate 2 2 2 2.0 02/11/17 02/11/17 02/11/17 02/11/17 20:50 21:05 21:20 21:35 Pulse 94 97 94 Resp 18 18 18 B/P 145/86 138/76 132/78 Pulse Ox 91 92 96 O2 Delivery Nasal Cannula Nasal Cannula Nasal Cannula Nasal Cannula O2 Flow Rate 3.0 2.0 3.0 3.0 02/11/17 02/11/17 02/11/17 02/11/17 21:46 22:05 22:35 23:35 Pulse 92 94 104 Resp 20 18 18 18 B/P 123/72 128/77 102/64 Pulse Ox 96 97 98 92 O2 Delivery Nasal Cannula Nasal Cannula Nasal Cannula Nasal Cannula O2 Flow Rate 3.0 3.0 3.0 3.0 02/12/17 02/12/17 02/12/17 02/12/17 00:35 02:53 03:00 06:15 Temp 98.4 98.4 Pulse 88 88 Resp 18 20 18 20 B/P 129/81 146/85 Pulse Ox 99 92 97 97 O2 Delivery Nasal Cannula Nasal Cannula Nasal Cannula Nasal Cannula O2 Flow Rate 3.0 3.0 3.0 2.0 02/12/17 02/12/17 06:45 07:00 Temp 97.9 97.9 Pulse 93 Resp 20 18 B/P 104/65 Pulse Ox 97 97 O2 Delivery Nasal Cannula Nasal Cannula O2 Flow Rate 2.0 3.0 Intake and Output 02/11/17 02/11/17 02/12/17 15:00 23:00 07:00 Intake Total 1000 ml 1350 ml 1153 ml Output Total 300 ml 1025 ml Balance 1000 ml 1050 ml 128 ml GORDO TONY MD Feb 12, 2017 09:58
[2017-02-12] MEDS: GLIMEPIRIDE 2 MG TABLET. PO SCH (11:06)
[2017-02-12] MEDS: VANCOMYCIN PER PHARMACY MC PRN (13:12)
--- NOTE | 2017-02-12 14:06 | PDOC ---
SURGICAL PROGRESS NOTE Subjective Pt. feeling well. Pain controlled. She is tolerating regular diet. Vital Signs Vital Signs Date Time Temp Pulse Resp B/P Pulse Ox O2 Delivery O2 Flow Rate FiO2 02/12/17 11:00 97.5 104 18 120/77 96 Room Air 97.5 02/12/17 07:00 3.0 I&O Intake and Output 02/12/17 07:00 Intake Total 3503 ml Output Total 1325 ml Balance 2178 ml Intake Oral 410 ml IV Total 3093 ml Output Urine Total 1325 ml Stool Total 0 ml PATIENT HAS A LOPEZ: Yes General: Alert, Oriented X3, Cooperative HEENT: Atraumatic Lungs: Clear to auscultation Heart: Regular rate Abdomen: Normal bowel sounds, Soft, No tenderness, No masses, Other (Packing in place.) Extremities: No edema Psych/Mental Status: Mental status NL Labs Laboratory Tests Test 02/11/17 11:30 02/11/17 13:30 02/11/17 15:30 02/11/17 18:25 Urine Collection Type Unknown Urine Color Yellow Urine Clarity Turbid Urine pH 6.0 Urine Specific [place] 1.010 Urine Protein Negativemg/dL (NEG-TRACE) Urine Glucose (UA) >=1000mg/dL (NEG) Urine Ketones (Stick) 15mg/dL (NEG) Urine Blood Small (NEG) Urine Nitrite Negative (NEG) Urine Bilirubin Negative (NEG) Urine Urobilinogen Dipstick 0.2mg/dL (0.2 mg/dL) Urine Leukocyte Esterase Large (NEG) Urine RBC 11-20/HPF (0-2) Urine WBC 20-40/HPF (0-4) Urine Squamous Epithelial Cells Few/LPF Urine Bacteria Many/HPF (0-FEW) Urine Yeast Present/HPF White Blood Count 12.5x10^3/uL (4.0-11.0) Red Blood Count 4.49x10^6/uL (3.50-5.40) Hemoglobin 11.7g/dL (12.0-15.5) Hematocrit 36.9% (36.0-47.0) Mean Corpuscular Volume 82fL (79-100) Mean Corpuscular Hemoglobin 26pg (25-35) Mean Corpuscular Hemoglobin Concent 32g/dL (31-37) Red Cell Distribution Width 14.9% (11.5-14.5) Platelet Count 341x10^3/uL (140-400) Neutrophils (%) (Auto) 73% (31-73) Lymphocytes (%) (Auto) 18% (24-48) Monocytes (%) (Auto) 6% (0-9) Eosinophils (%) (Auto) 1% (0-3) Basophils (%) (Auto) 1% (0-3) Neutrophils # (Auto) 9.2x10^3uL (1.8-7.7) Lymphocytes # (Auto) 2.3x10^3/uL (1.0-4.8) Monocytes # (Auto) 0.8x10^3/uL (0.0-1.1) Eosinophils # (Auto) 0.2x10^3/uL (0.0-0.7) Basophils # (Auto) 0.2x10^3/uL (0.0-0.2) Sodium Level 133mmol/L (136-145) Potassium Level 4.5mmol/L (3.5-5.1) Chloride Level 96mmol/L (98-107) Carbon Dioxide Level 30mmol/L (21-32) Anion Gap 7 (6-14) Blood Urea Nitrogen 8mg/dL (7-20) Creatinine 0.6mg/dL (0.6-1.0) Estimated GFR (Cockcroft-Gault) 132.7 Glucose Level 380mg/dL (70-99) Calcium Level 8.7mg/dL (8.5-10.1) Lactic Acid Level 1.1mmol/L (0.4-2.0) Glucose (Fingerstick) 289mg/dL (70-99) Test 02/11/17 19:30 02/11/17 21:00 02/12/17 05:55 02/12/17 07:24 Glucose (Fingerstick) 231mg/dL (70-99) 222mg/dL (70-99) 418mg/dL (70-99) White Blood Count 11.1x10^3/uL (4.0-11.0) Red Blood Count 4.35x10^6/uL (3.50-5.40) Hemoglobin 11.2g/dL (12.0-15.5) Hematocrit 36.0% (36.0-47.0) Mean Corpuscular Volume 83fL (79-100) Mean Corpuscular Hemoglobin 26pg (25-35) Mean Corpuscular Hemoglobin Concent 31g/dL (31-37) Red Cell Distribution Width 14.7% (11.5-14.5) Platelet Count 314x10^3/uL (140-400) Neutrophils (%) (Auto) 85% (31-73) Lymphocytes (%) (Auto) 11% (24-48) Monocytes (%) (Auto) 3% (0-9) Eosinophils (%) (Auto) 0% (0-3) Basophils (%) (Auto) 0% (0-3) Neutrophils # (Auto) 9.4x10^3uL (1.8-7.7) Lymphocytes # (Auto) 1.2x10^3/uL (1.0-4.8) Monocytes # (Auto) 0.4x10^3/uL (0.0-1.1) Eosinophils # (Auto) 0.0x10^3/uL (0.0-0.7) Basophils # (Auto) 0.0x10^3/uL (0.0-0.2) Segmented Neutrophils % 82% (35-66) Band Neutrophils % 4% (0-9) Lymphocytes % 12% (24-48) Monocytes % 2% (0-10) Platelet Estimate Adequate (ADEQUATE) Sodium Level 132mmol/L (136-145) Potassium Level 4.5mmol/L (3.5-5.1) Chloride Level 99mmol/L (98-107) Carbon Dioxide Level 27mmol/L (21-32) Anion Gap 6 (6-14) Blood Urea Nitrogen 7mg/dL (7-20) Creatinine 0.6mg/dL (0.6-1.0) Estimated GFR (Cockcroft-Gault) 132.7 Glucose Level 420mg/dL (70-99) Calcium Level 8.6mg/dL (8.5-10.1) Test 02/12/17 10:51 Glucose (Fingerstick) 299mg/dL (70-99) Laboratory Tests Test 02/11/17 15:30 02/11/17 18:25 02/11/17 19:30 02/11/17 21:00 Lactic Acid Level 1.1mmol/L (0.4-2.0) Glucose (Fingerstick) 289mg/dL (70-99) 231mg/dL (70-99) 222mg/dL (70-99) Test 02/12/17 05:55 02/12/17 07:24 02/12/17 10:51 White Blood Count 11.1x10^3/uL (4.0-11.0) Red Blood Count 4.35x10^6/uL (3.50-5.40) Hemoglobin 11.2g/dL (12.0-15.5) Hematocrit 36.0% (36.0-47.0) Mean Corpuscular Volume 83fL (79-100) Mean Corpuscular Hemoglobin 26pg (25-35) Mean Corpuscular Hemoglobin Concent 31g/dL (31-37) Red Cell Distribution Width 14.7% (11.5-14.5) Platelet Count 314x10^3/uL (140-400) Neutrophils (%) (Auto) 85% (31-73) Lymphocytes (%) (Auto) 11% (24-48) Monocytes (%) (Auto) 3% (0-9) Eosinophils (%) (Auto) 0% (0-3) Basophils (%) (Auto) 0% (0-3) Neutrophils # (Auto) 9.4x10^3uL (1.8-7.7) Lymphocytes # (Auto) 1.2x10^3/uL (1.0-4.8) Monocytes # (Auto) 0.4x10^3/uL (0.0-1.1) Eosinophils # (Auto) 0.0x10^3/uL (0.0-0.7) Basophils # (Auto) 0.0x10^3/uL (0.0-0.2) Segmented Neutrophils % 82% (35-66) Band Neutrophils % 4% (0-9) Lymphocytes % 12% (24-48) Monocytes % 2% (0-10) Platelet Estimate Adequate (ADEQUATE) Sodium Level 132mmol/L (136-145) Potassium Level 4.5mmol/L (3.5-5.1) Chloride Level 99mmol/L (98-107) Carbon Dioxide Level 27mmol/L (21-32) Anion Gap 6 (6-14) Blood Urea Nitrogen 7mg/dL (7-20) Creatinine 0.6mg/dL (0.6-1.0) Estimated GFR (Cockcroft-Gault) 132.7 Glucose Level 420mg/dL (70-99) Calcium Level 8.6mg/dL (8.5-10.1) Glucose (Fingerstick) 418mg/dL (70-99) 299mg/dL (70-99) Problem List Problems Medical Problems: (1) Chronic vulvitis Status: Acute (2) Gluteal abscess Status: Acute (3) Hyperglycemia Status: Acute (4) Leukocytosis Status: Acute (5) Perineal abscess Status: Acute (6) Vaginal discharge Status: Acute (7) Vulvar inflammation Status: Acute Assessment/Plan POD#1 s/p wound packing and vulvar debridement Gluteal abscess with extension to labia Severe vulvitis P: continue IV abx and wound changes BID Problems: FRANCESCA BAUTISTA Jr, MD Feb 12, 2017 14:06
[2017-02-12] MEDS: KETOROLAC TROMETHAMINE 30 MG/ML INJ. IV PRN ×2 (14:20→21:59)
[2017-02-12] MEDS: oxyCODONE/APAP 5/325 1 TAB TABLET PO PRN ×2 (17:01→23:34)
[2017-02-12] MEDS: VANCOMYCIN 1 GM in IV NORMAL SALINE 250ML 250 ML IV SCH (17:02)
[2017-02-13] MEDS: VANCOMYCIN 1 GM in IV NORMAL SALINE 250ML 250 ML IV SCH ×2 (01:05→09:00)
--- NOTE | 2017-02-13 02:06 | CONS ---
DATE OF CONSULTATION: 02/12/2017 LOCATION: The patient is in room 428. REQUESTING PHYSICIAN: Dr. Shaver. REASON FOR CONSULTATION: Abscess. HISTORY OF PRESENT ILLNESS: The patient is a 41-year-old -[place] female with a history of diabetes since at least 1998. 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 She states that approximately 4 weeks ago, she was ____ and noticed a small bump down in the perirectal area. Over time, the pump became more painful and swollen. She denies any antibiotics. She denied having fever or chills or sweats; however, over the last several days or so, it began to drain and she apparently had developed an odor, and her , who goes to the wound care center routinely, brought her to the Emergency Room on 02/11/2017. She underwent a CT scan, which showed a superficial perineum to the left of the midline and has some peripheral enhancing gas and fluid collection, measuring 8 x 1 x 4.5 cm. Additionally, she had a white blood cell count at about 12.5. She was evaluated by Dr. Dash, who consulted Dr. Ruby____, who also went to the operating room, did an exam under anesthesia, debrided the vulva, and packed a gluteal abscess and right labial abscess. She underwent a wet prep that showed some yeast on it. A urinalysis also was obtained and had yeast. Glucose on arrival was 380. Currently, she is sitting upright in bed. She is much more comfortable. Denies any fever, chills, sweats, or headaches. There is no sore throat, cough, or chest pain. No nausea or vomiting. She has had some flatus. She currently has a Tai in place. PAST MEDICAL HISTORY: Again is positive for diabetes since 1998. PAST SURGICAL HISTORY: Positive for previous C-sections. REVIEW OF SYSTEMS: Otherwise negative, except for mentioned above. ALLERGIES: No known drug allergies. SOCIAL HISTORY: She is . No tobacco or alcohol. FAMILY HISTORY: Positive for diabetes. CURRENT MEDICATIONS: Again, she received the vancomycin, Zosyn, and clindamycin and ordered from the Emergency Room. She also received a dose of dexamethasone on the 02/11/2017. She is on insulin. Other meds are available and have been reviewed in the chart. PHYSICAL EXAMINATION: VITAL SIGNS: She is afebrile, temperature 97.9, pulse 93, respirations 18, blood pressure 104/65, and satting 97% on nasal cannula. CONSTITUTIONAL: She is very pleasant and cooperative. She is no acute distress. HEENT: Pupils are equal and reactive with normal conjunctivae. Oral cavity: Oropharynx is clear, but she has poor dentition. NECK: Supple. Good range of motion. No JVD. LUNGS: Clear to auscultation bilaterally. HEART: S1 and S2. ABDOMEN: Mildly distended, soft with positive bowel sounds. Tai is in place. EXTREMITIES: Without clubbing, cyanosis, or gross edema. SKIN: Warm to touch without signs of rash. NEUROLOGIC: She is nonfocal, moves all extremities. PSYCHIATRIC: Affect is appropriate. Wounds were not unpacked as they are postoperative. LABORATORY DATA: Today, white count 11, hemoglobin 11.2, platelets 314, neutrophils 85, lymphs are 11%, glucose today 420, and creatinine of 0.6. Urinalysis - large leukocyte esterase, few squamous, and many bacteria. Also, some yeast. Nitrite negative. IMAGING: Reviewed in the history of present illness. IMPRESSION: 1. Leukocytosis, again received Decadron on 02/11/2017. 2. Perineal abscess, status post incision and drainage on 02/11/2017. 3. Diabetes, status post steroids. 4. Yeast in urine. Continue the vancomycin, Zosyn, and clindamycin. RECOMMENDATIONS: We will add fluconazole, follow up cultures, and hopefully change her to p.o. antibiotics shortly. We will continue local wound care and follow up her labs. Thank you for allowing me to participate in this patient's care. If you have any questions, please do not hesitate to contact me. ANNA OLVERA MD DR: DIANA/tal JOB#: [id number] / [id number]
[2017-02-13 03:04] VITALS: BP 95/59
[2017-02-13] MEDS: oxyCODONE/APAP 5/325 1 TAB TABLET PO PRN ×4 (04:34→22:50)
[2017-02-13] MEDS: KETOROLAC TROMETHAMINE 30 MG/ML INJ. IV PRN ×2 (04:34→13:19)
[2017-02-13] MEDS: PIPERACILLIN/TAZOBACTAM 4.5 GM in IV NORMAL SALINE 100ML 100 ML IV SCH ×3 (06:05→18:29)
[2017-02-13] MEDS: GABAPENTIN 300 MG CAPSULE. PO SCH ×3 (06:06→22:50)
[2017-02-13] MEDS: CLINDAMYCIN 600MG PREMIX 50 ML IV SCH (06:06)
[2017-02-13 07:00] VITALS: BP 95/66
--- NOTE | 2017-02-13 08:54 | PDOC ---
Infectious Disease Note Subjective Subjective some pain today but ok otherwise. Eating. + Flatus ROS ROS GEN: Denies fevers, chills, sweats HEENT: Denies blurred vision, sore throat CV: Denies chest pain RESP: Denies shortness of air, cough GI: Denies n/v/d NEURO: Denies confusion, dizziness MSK: Denies weakness, joint pain/swelling Vital Sign Vital Signs Vital Signs Date Time Temp Pulse Resp B/P Pulse Ox O2 Delivery O2 Flow Rate FiO2 02/13/17 05:35 20 98 Nasal Cannula 2.0 02/13/17 03:04 97.9 88 95/59 97.9 Physical Exam PHYSICAL EXAM GENERAL: NAD, Alert HEENT: PERRL, OC/OP - poor dentition NECK: Supple, no JVD, no LN LUNGS: Clear HEART: S1S2, no gallop, no murmur ABD: Soft, NT, no organomegaly, no rebound, obese wounds packed EXT: No edema, no cyanosis 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 D/c Clinda F/u cults and hope to change to po soon Local wound care F/u labs ANNA OLVERA MD Feb 13, 2017 08:54
[2017-02-13] MEDS: VANCOMYCIN PER PHARMACY MC PRN (09:09)
[2017-02-13] MEDS ORDERED: MORPHINE SULFATE 4 MG/ML DISP.SYRIN. IV PRN (09:15)
[2017-02-13] MEDS: POLYETHYLENE GLYCOL 3350 17 GM PACKET. PO PRN (09:35)
[2017-02-13] MEDS: DOCUSATE SODIUM 100 MG CAPSULE. PO SCH (09:35)
[2017-02-13] MEDS: FLUCONAZOLE 100 MG TABLET. PO SCH (09:37)
[2017-02-13] MEDS: GLIMEPIRIDE 2 MG TABLET. PO SCH (09:37)
[2017-02-13] MEDS: INSULIN ASPART 300 UNITS/3 ML INSULN.PEN SQ SCH ×7 (09:45→18:35)
--- NOTE | 2017-02-13 10:19 | PDOC ---
[employer] 02/13/17 1019: SURGICAL PROGRESS NOTE Subjective doing fair still having pain, improving Vital Signs Vital Signs Date Time Temp Pulse Resp B/P Pulse Ox O2 Delivery O2 Flow Rate FiO2 02/13/17 07:00 98.3 84 18 95/66 98 Room Air 98.3 02/13/17 05:35 2.0 I&O Intake and Output 02/13/17 07:00 Intake Total 1760 ml Output Total 2025 ml Balance -265 ml Intake Oral 960 ml IV Total 800 ml Output Urine Total 2025 ml General: Alert, Oriented X3, Cooperative, No acute distress Skin: Other (buttock wound seen-clean, granulation tissue ) Labs Laboratory Tests Test 02/11/17 11:30 02/11/17 13:30 02/11/17 15:30 02/11/17 18:25 Urine Collection Type Unknown Urine Color Yellow Urine Clarity Turbid Urine pH 6.0 Urine Specific [place] 1.010 Urine Protein Negativemg/dL (NEG-TRACE) Urine Glucose (UA) >=1000mg/dL (NEG) Urine Ketones (Stick) 15mg/dL (NEG) Urine Blood Small (NEG) Urine Nitrite Negative (NEG) Urine Bilirubin Negative (NEG) Urine Urobilinogen Dipstick 0.2mg/dL (0.2 mg/dL) Urine Leukocyte Esterase Large (NEG) Urine RBC 11-20/HPF (0-2) Urine WBC 20-40/HPF (0-4) Urine Squamous Epithelial Cells Few/LPF Urine Bacteria Many/HPF (0-FEW) Urine Yeast Present/HPF White Blood Count 12.5x10^3/uL (4.0-11.0) Red Blood Count 4.49x10^6/uL (3.50-5.40) Hemoglobin 11.7g/dL (12.0-15.5) Hematocrit 36.9% (36.0-47.0) Mean Corpuscular Volume 82fL (79-100) Mean Corpuscular Hemoglobin 26pg (25-35) Mean Corpuscular Hemoglobin Concent 32g/dL (31-37) Red Cell Distribution Width 14.9% (11.5-14.5) Platelet Count 341x10^3/uL (140-400) Neutrophils (%) (Auto) 73% (31-73) Lymphocytes (%) (Auto) 18% (24-48) Monocytes (%) (Auto) 6% (0-9) Eosinophils (%) (Auto) 1% (0-3) Basophils (%) (Auto) 1% (0-3) Neutrophils # (Auto) 9.2x10^3uL (1.8-7.7) Lymphocytes # (Auto) 2.3x10^3/uL (1.0-4.8) Monocytes # (Auto) 0.8x10^3/uL (0.0-1.1) Eosinophils # (Auto) 0.2x10^3/uL (0.0-0.7) Basophils # (Auto) 0.2x10^3/uL (0.0-0.2) Sodium Level 133mmol/L (136-145) Potassium Level 4.5mmol/L (3.5-5.1) Chloride Level 96mmol/L (98-107) Carbon Dioxide Level 30mmol/L (21-32) Anion Gap 7 (6-14) Blood Urea Nitrogen 8mg/dL (7-20) Creatinine 0.6mg/dL (0.6-1.0) Estimated GFR (Cockcroft-Gault) 132.7 Glucose Level 380mg/dL (70-99) Calcium Level 8.7mg/dL (8.5-10.1) Lactic Acid Level 1.1mmol/L (0.4-2.0) Glucose (Fingerstick) 289mg/dL (70-99) Test 02/11/17 19:30 02/11/17 21:00 02/12/17 05:45 02/12/17 05:55 Glucose (Fingerstick) 231mg/dL (70-99) 222mg/dL (70-99) Hemoglobin A1c 13.4% (4.8-5.6) White Blood Count 11.1x10^3/uL (4.0-11.0) Red Blood Count 4.35x10^6/uL (3.50-5.40) Hemoglobin 11.2g/dL (12.0-15.5) Hematocrit 36.0% (36.0-47.0) Mean Corpuscular Volume 83fL (79-100) Mean Corpuscular Hemoglobin 26pg (25-35) Mean Corpuscular Hemoglobin Concent 31g/dL (31-37) Red Cell Distribution Width 14.7% (11.5-14.5) Platelet Count 314x10^3/uL (140-400) Neutrophils (%) (Auto) 85% (31-73) Lymphocytes (%) (Auto) 11% (24-48) Monocytes (%) (Auto) 3% (0-9) Eosinophils (%) (Auto) 0% (0-3) Basophils (%) (Auto) 0% (0-3) Neutrophils # (Auto) 9.4x10^3uL (1.8-7.7) Lymphocytes # (Auto) 1.2x10^3/uL (1.0-4.8) Monocytes # (Auto) 0.4x10^3/uL (0.0-1.1) Eosinophils # (Auto) 0.0x10^3/uL (0.0-0.7) Basophils # (Auto) 0.0x10^3/uL (0.0-0.2) Segmented Neutrophils % 82% (35-66) Band Neutrophils % 4% (0-9) Lymphocytes % 12% (24-48) Monocytes % 2% (0-10) Platelet Estimate Adequate (ADEQUATE) Sodium Level 132mmol/L (136-145) Potassium Level 4.5mmol/L (3.5-5.1) Chloride Level 99mmol/L (98-107) Carbon Dioxide Level 27mmol/L (21-32) Anion Gap 6 (6-14) Blood Urea Nitrogen 7mg/dL (7-20) Creatinine 0.6mg/dL (0.6-1.0) Estimated GFR (Cockcroft-Gault) 132.7 Glucose Level 420mg/dL (70-99) Calcium Level 8.6mg/dL (8.5-10.1) Test 02/12/17 07:24 02/12/17 10:51 02/12/17 17:26 02/12/17 20:57 Glucose (Fingerstick) 418mg/dL (70-99) 299mg/dL (70-99) 104mg/dL (70-99) 157mg/dL (70-99) Test 02/13/17 07:24 02/13/17 08:25 Glucose (Fingerstick) 293mg/dL (70-99) Vancomycin Level Trough 21.3mcg/mL (10.0-20.0) Vancomycin Last Dose Date 02/13/17 Vancomycin Last Dose Time 0100 Laboratory Tests Test 02/12/17 10:51 02/12/17 17:26 02/12/17 20:57 02/13/17 07:24 Glucose (Fingerstick) 299mg/dL (70-99) 104mg/dL (70-99) 157mg/dL (70-99) 293mg/dL (70-99) Test 02/13/17 08:25 Vancomycin Level Trough 21.3mcg/mL (10.0-20.0) Vancomycin Last Dose Date 02/13/17 Vancomycin Last Dose Time 010 Problem List Problems Medical Problems: (1) Chronic vulvitis Status: Acute (2) Gluteal abscess Status: Acute (3) Hyperglycemia Status: Acute (4) Leukocytosis Status: Acute (5) Perineal abscess Status: Acute (6) Vaginal discharge Status: Acute (7) Vulvar inflammation Status: Acute Assessment/Plan continue wound care per wound team recs no surgical needs, will sign off, please call with questions Problems: GORDO TONY MD 02/13/17 1151: SURGICAL PROGRESS NOTE Assessment/Plan Agree with above Problems: [employer] Feb 13, 2017 10:19 GORDO TONY MD Feb 13, 2017 11:51
[2017-02-13 11:00] VITALS: BP 104/61
[2017-02-13] MEDS ORDERED: GLIM2TAB2 PO (12:04)
[2017-02-13] MEDS ORDERED: METF850T PO (12:04)
--- NOTE | 2017-02-13 12:23 | PDOC ---
SURGICAL PROGRESS NOTE Subjective Pt. feeling better. Pain controlled. No culture growth as of date. Vital Signs Vital Signs Date Time Temp Pulse Resp B/P Pulse Ox O2 Delivery O2 Flow Rate FiO2 02/13/17 11:00 98.1 91 18 104/61 95 Room Air 98.1 02/13/17 05:35 2.0 I&O Intake and Output 02/13/17 07:00 Intake Total 1760 ml Output Total 2025 ml Balance -265 ml Intake Oral 960 ml IV Total 800 ml Output Urine Total 2025 ml PATIENT HAS A LOPEZ: Yes General: Alert, Oriented X3, Cooperative, No acute distress HEENT: Mucous membr. moist/pink Lungs: Clear to auscultation, Normal air movement Heart: Regular rate, Normal S1, Normal S2, No murmurs Abdomen: Normal bowel sounds, Soft, No tenderness, No hepatosplenomegaly, No masses, Other (Packing in place. No saturation.) Extremities: No edema, Normal pulses Skin: No rashes, No breakdown, No significant lesion Neuro: Normal gait, Normal speech, Strength at 5/5 X4 ext, Normal tone, Sensation intact, Reflexes 2+ Psych/Mental Status: Mental status NL, Mood NL Labs Laboratory Tests Test 02/11/17 13:30 02/11/17 15:30 02/11/17 18:25 02/11/17 19:30 White Blood Count 12.5x10^3/uL (4.0-11.0) Red Blood Count 4.49x10^6/uL (3.50-5.40) Hemoglobin 11.7g/dL (12.0-15.5) Hematocrit 36.9% (36.0-47.0) Mean Corpuscular Volume 82fL (79-100) Mean Corpuscular Hemoglobin 26pg (25-35) Mean Corpuscular Hemoglobin Concent 32g/dL (31-37) Red Cell Distribution Width 14.9% (11.5-14.5) Platelet Count 341x10^3/uL (140-400) Neutrophils (%) (Auto) 73% (31-73) Lymphocytes (%) (Auto) 18% (24-48) Monocytes (%) (Auto) 6% (0-9) Eosinophils (%) (Auto) 1% (0-3) Basophils (%) (Auto) 1% (0-3) Neutrophils # (Auto) 9.2x10^3uL (1.8-7.7) Lymphocytes # (Auto) 2.3x10^3/uL (1.0-4.8) Monocytes # (Auto) 0.8x10^3/uL (0.0-1.1) Eosinophils # (Auto) 0.2x10^3/uL (0.0-0.7) Basophils # (Auto) 0.2x10^3/uL (0.0-0.2) Sodium Level 133mmol/L (136-145) Potassium Level 4.5mmol/L (3.5-5.1) Chloride Level 96mmol/L (98-107) Carbon Dioxide Level 30mmol/L (21-32) Anion Gap 7 (6-14) Blood Urea Nitrogen 8mg/dL (7-20) Creatinine 0.6mg/dL (0.6-1.0) Estimated GFR (Cockcroft-Gault) 132.7 Glucose Level 380mg/dL (70-99) Calcium Level 8.7mg/dL (8.5-10.1) Lactic Acid Level 1.1mmol/L (0.4-2.0) Glucose (Fingerstick) 289mg/dL (70-99) 231mg/dL (70-99) Test 02/11/17 21:00 02/12/17 05:45 02/12/17 05:55 02/12/17 07:24 Glucose (Fingerstick) 222mg/dL (70-99) 418mg/dL (70-99) Hemoglobin A1c 13.4% (4.8-5.6) White Blood Count 11.1x10^3/uL (4.0-11.0) Red Blood Count 4.35x10^6/uL (3.50-5.40) Hemoglobin 11.2g/dL (12.0-15.5) Hematocrit 36.0% (36.0-47.0) Mean Corpuscular Volume 83fL (79-100) Mean Corpuscular Hemoglobin 26pg (25-35) Mean Corpuscular Hemoglobin Concent 31g/dL (31-37) Red Cell Distribution Width 14.7% (11.5-14.5) Platelet Count 314x10^3/uL (140-400) Neutrophils (%) (Auto) 85% (31-73) Lymphocytes (%) (Auto) 11% (24-48) Monocytes (%) (Auto) 3% (0-9) Eosinophils (%) (Auto) 0% (0-3) Basophils (%) (Auto) 0% (0-3) Neutrophils # (Auto) 9.4x10^3uL (1.8-7.7) Lymphocytes # (Auto) 1.2x10^3/uL (1.0-4.8) Monocytes # (Auto) 0.4x10^3/uL (0.0-1.1) Eosinophils # (Auto) 0.0x10^3/uL (0.0-0.7) Basophils # (Auto) 0.0x10^3/uL (0.0-0.2) Segmented Neutrophils % 82% (35-66) Band Neutrophils % 4% (0-9) Lymphocytes % 12% (24-48) Monocytes % 2% (0-10) Platelet Estimate Adequate (ADEQUATE) Sodium Level 132mmol/L (136-145) Potassium Level 4.5mmol/L (3.5-5.1) Chloride Level 99mmol/L (98-107) Carbon Dioxide Level 27mmol/L (21-32) Anion Gap 6 (6-14) Blood Urea Nitrogen 7mg/dL (7-20) Creatinine 0.6mg/dL (0.6-1.0) Estimated GFR (Cockcroft-Gault) 132.7 Glucose Level 420mg/dL (70-99) Calcium Level 8.6mg/dL (8.5-10.1) Test 02/12/17 10:51 02/12/17 17:26 02/12/17 20:57 02/13/17 07:24 Glucose (Fingerstick) 299mg/dL (70-99) 104mg/dL (70-99) 157mg/dL (70-99) 293mg/dL (70-99) Test 02/13/17 08:25 02/13/17 11:12 Vancomycin Level Trough 21.3mcg/mL (10.0-20.0) Vancomycin Last Dose Date 02/13/17 Vancomycin Last Dose Time 0100 Glucose (Fingerstick) 219mg/dL (70-99) Laboratory Tests Test 02/12/17 17:26 02/12/17 20:57 02/13/17 07:24 02/13/17 08:25 Glucose (Fingerstick) 104mg/dL (70-99) 157mg/dL (70-99) 293mg/dL (70-99) Vancomycin Level Trough 21.3mcg/mL (10.0-20.0) Vancomycin Last Dose Date 02/13/17 Vancomycin Last Dose Time 0100 Test 02/13/17 11:12 Glucose (Fingerstick) 219mg/dL (70-99) Problem List Problems Medical Problems: (1) Chronic vulvitis Status: Acute (2) Gluteal abscess Status: Acute (3) Hyperglycemia Status: Acute (4) Leukocytosis Status: Acute (5) Perineal abscess Status: Acute (6) Vaginal discharge Status: Acute (7) Vulvar inflammation Status: Acute Assessment/Plan A: Severe Vulvitis: improving Gluteal abscess with extension to vulva: granulation tissue present P: Continue Diflucan qod x 1 month. Wound care daily until healed. February f/u in clinic in 1-2 months for [facility] establish care. Problems: FRANCESCA BAUTISTA Jr, MD Feb 13, 2017 12:23
[2017-02-13] MEDS: ONDANSETRON PF 4 MG/2 ML VIAL. IV PRN ×2 (13:18→18:27)
--- NOTE | 2017-02-13 13:20 | PDOC ---
PROGRESS NOTES Chief Complaint Chief Complaint sepsis, cellulitis skin cellulitis w. abcess in groin abscess in her buttocks/vulva. DM2, poor control, Hgb A1c 13.4, poor compliance, obesity, BMI 32 htn UTI History of Present Illness History of Present Illness s/p Surg, doing well blood sugar good at HS, elevated near noon ID following increase insulin, cont metformin, she takes only glimiperide 1 at home, will need more and f/u discussed with Dr. Rojas, he would like 1 mo of QOD PO diflucan, topical would cause irritation to wound pain improved Vitals Vitals Vital Signs Date Time Temp Pulse Resp B/P Pulse Ox O2 Delivery O2 Flow Rate FiO2 02/13/17 11:00 98.1 91 18 104/61 95 Room Air 98.1 02/13/17 05:35 2.0 Physical Exam General: Alert, Oriented X3, Cooperative, No acute distress Heart: Regular rate, Normal S1, Normal S2, No murmurs Lungs: Clear Abdomen: Normal bowel sounds, Soft, No tenderness, No hepatosplenomegaly, No masses, Other (Packing in place. No saturation.) Extremities: No edema, Normal pulses Skin: No rashes, No breakdown, No significant lesion Labs LABS Laboratory Tests Test 02/12/17 17:26 02/12/17 20:57 02/13/17 07:24 02/13/17 08:25 Glucose (Fingerstick) 104mg/dL (70-99) 157mg/dL (70-99) 293mg/dL (70-99) Vancomycin Level Trough 21.3mcg/mL (10.0-20.0) Vancomycin Last Dose Date 02/13/17 Vancomycin Last Dose Time 0100 Test 02/13/17 11:12 Glucose (Fingerstick) 219mg/dL (70-99) Review of Systems Review of Systems pain better appetite OK Assessment and Plan Assessmemt and Plan Problems Medical Problems: (1) Chronic vulvitis Status: Acute (2) Gluteal abscess Status: Acute (3) Hyperglycemia Status: Acute (4) Leukocytosis Status: Acute (5) Perineal abscess Status: Acute (6) Vaginal discharge Status: Acute (7) Vulvar inflammation Status: Acute Problems: Comment Review of Relevant I have reviewed the following items pat (where applicable) has been applied. Labs Laboratory Tests Test 02/11/17 13:30 02/11/17 15:30 02/11/17 18:25 02/11/17 19:30 White Blood Count 12.5x10^3/uL (4.0-11.0) Red Blood Count 4.49x10^6/uL (3.50-5.40) Hemoglobin 11.7g/dL (12.0-15.5) Hematocrit 36.9% (36.0-47.0) Mean Corpuscular Volume 82fL (79-100) Mean Corpuscular Hemoglobin 26pg (25-35) Mean Corpuscular Hemoglobin Concent 32g/dL (31-37) Red Cell Distribution Width 14.9% (11.5-14.5) Platelet Count 341x10^3/uL (140-400) Neutrophils (%) (Auto) 73% (31-73) Lymphocytes (%) (Auto) 18% (24-48) Monocytes (%) (Auto) 6% (0-9) Eosinophils (%) (Auto) 1% (0-3) Basophils (%) (Auto) 1% (0-3) Neutrophils # (Auto) 9.2x10^3uL (1.8-7.7) Lymphocytes # (Auto) 2.3x10^3/uL (1.0-4.8) Monocytes # (Auto) 0.8x10^3/uL (0.0-1.1) Eosinophils # (Auto) 0.2x10^3/uL (0.0-0.7) Basophils # (Auto) 0.2x10^3/uL (0.0-0.2) Sodium Level 133mmol/L (136-145) Potassium Level 4.5mmol/L (3.5-5.1) Chloride Level 96mmol/L (98-107) Carbon Dioxide Level 30mmol/L (21-32) Anion Gap 7 (6-14) Blood Urea Nitrogen 8mg/dL (7-20) Creatinine 0.6mg/dL (0.6-1.0) Estimated GFR (Cockcroft-Gault) 132.7 Glucose Level 380mg/dL (70-99) Calcium Level 8.7mg/dL (8.5-10.1) Lactic Acid Level 1.1mmol/L (0.4-2.0) Glucose (Fingerstick) 289mg/dL (70-99) 231mg/dL (70-99) Test 02/11/17 21:00 02/12/17 05:45 02/12/17 05:55 02/12/17 07:24 Glucose (Fingerstick) 222mg/dL (70-99) 418mg/dL (70-99) Hemoglobin A1c 13.4% (4.8-5.6) White Blood Count 11.1x10^3/uL (4.0-11.0) Red Blood Count 4.35x10^6/uL (3.50-5.40) Hemoglobin 11.2g/dL (12.0-15.5) Hematocrit 36.0% (36.0-47.0) Mean Corpuscular Volume 83fL (79-100) Mean Corpuscular Hemoglobin 26pg (25-35) Mean Corpuscular Hemoglobin Concent 31g/dL (31-37) Red Cell Distribution Width 14.7% (11.5-14.5) Platelet Count 314x10^3/uL (140-400) Neutrophils (%) (Auto) 85% (31-73) Lymphocytes (%) (Auto) 11% (24-48) Monocytes (%) (Auto) 3% (0-9) Eosinophils (%) (Auto) 0% (0-3) Basophils (%) (Auto) 0% (0-3) Neutrophils # (Auto) 9.4x10^3uL (1.8-7.7) Lymphocytes # (Auto) 1.2x10^3/uL (1.0-4.8) Monocytes # (Auto) 0.4x10^3/uL (0.0-1.1) Eosinophils # (Auto) 0.0x10^3/uL (0.0-0.7) Basophils # (Auto) 0.0x10^3/uL (0.0-0.2) Segmented Neutrophils % 82% (35-66) Band Neutrophils % 4% (0-9) Lymphocytes % 12% (24-48) Monocytes % 2% (0-10) Platelet Estimate Adequate (ADEQUATE) Sodium Level 132mmol/L (136-145) Potassium Level 4.5mmol/L (3.5-5.1) Chloride Level 99mmol/L (98-107) Carbon Dioxide Level 27mmol/L (21-32) Anion Gap 6 (6-14) Blood Urea Nitrogen 7mg/dL (7-20) Creatinine 0.6mg/dL (0.6-1.0) Estimated GFR (Cockcroft-Gault) 132.7 Glucose Level 420mg/dL (70-99) Calcium Level 8.6mg/dL (8.5-10.1) Test 02/12/17 10:51 02/12/17 17:26 02/12/17 20:57 02/13/17 07:24 Glucose (Fingerstick) 299mg/dL (70-99) 104mg/dL (70-99) 157mg/dL (70-99) 293mg/dL (70-99) Test 02/13/17 08:25 02/13/17 11:12 Vancomycin Level Trough 21.3mcg/mL (10.0-20.0) Vancomycin Last Dose Date 02/13/17 Vancomycin Last Dose Time 0100 Glucose (Fingerstick) 219mg/dL (70-99) Laboratory Tests Test 02/12/17 17:26 02/12/17 20:57 02/13/17 07:24 02/13/17 08:25 Glucose (Fingerstick) 104mg/dL (70-99) 157mg/dL (70-99) 293mg/dL (70-99) Vancomycin Level Trough 21.3mcg/mL (10.0-20.0) Vancomycin Last Dose Date 02/13/17 Vancomycin Last Dose Time 0100 Test 02/13/17 11:12 Glucose (Fingerstick) 219mg/dL (70-99) Microbiology 02/11/17 Blood Culture - Preliminary, Resulted NO GROWTH AFTER 1 DAY 02/11/17 Wet Prep - Final, Complete 02/11/17 Gram Stain - Final, Complete Medications Current Medications Fentanyl Citrate 50 mcg 50 mcg PRN Q15MIN PRN IV PAIN GREATER THAN 3/10 Last administered on 02/11/17t 17:27; Start 02/11/17 at 13:00; Stop 02/12/17 at 12:59 ; Status DC Sodium Chloride (Iv Sodium Chloride 0.9% 1000ml Bag) 1,000 ml @ 1,000 mls/hr 1X ONCE IV Last administered on 02/11/17 13:48; Start 02/11/17 at 13:00; Stop 02/11/17 at 13:59; Status DC Iohexol (Omnipaque 300 Mg/ml) 75 ml 1X ONCE IV Last administered on 02/11/17 13:30; Start 02/11/17 at 13:30; Stop 02/11/17 at 13:31; Status DC Info 1 each 1 each PRN DAILY PRN MC SEE COMMENTS; Start 02/11/17 at 13:30; Stop 02/13/17 at 13:29 Vancomycin HCl 250 ml @ 250 mls/hr 1X ONCE IV Last administered on 02/11/17 17:35; Start 02/11/17 at 15:00; Stop 02/11/17 at 15:59; Status DC Piperacillin Sod/ Tazobactam Sod/ Sodium Chloride (Zosyn/Iv Sodium Chloride 0.9 % 100ml) 100 ml @ 200 mls/hr 1X ONCE IV Last administered on 02/11/17 16:06 ; Start 02/11/17 at 15:00; Stop 02/11/17 at 15:29; Status DC Ondansetron HCl (Zofran) 4 mg PRN Q8HRS PRN IV NAUSEA/VOMITING Last administered on 02/11/17 21:45; Start 02/11/17 at 15:30; Stop 02/12/17 at 15:29 ; Status DC Morphine Sulfate 4 mg 4 mg PRN Q2HR PRN IV PAIN Last administered on 02/12/17 09:14; Start 02/11/17 at 15:30; Stop 02/12/17 at 15:29; Status DC Sodium Chloride 1,000 ml @ 2,190 mls/hr Q28M IV ; Start 02/11/17 at 15:30; Stop 02/11/17 at 16:30; Status DC Clindamycin Phosphate (Cleocin 600 Mg Premix) 50 ml @ 100 mls/hr 1X ONCE IV Last administered on 02/11/17 19:03; Start 02/11/17 at 16:00; Stop 02/11/17 at 16:29; Status DC Ondansetron HCl (Zofran) 4 mg PRN Q6HRS PRN IV NAUSEA/VOMITING; Start 02/11/17 at 16:15; Stop 02/12/17 at 16:14; Status DC Fentanyl Citrate (Fentanyl 2ml Vial) 25 mcg PRN Q5MIN PRN IV MILD PAIN; Start 02/11/17 at 16:15; Stop 02/12/17 at 16:14; Status DC Fentanyl Citrate (Fentanyl 2ml Vial) 50 mcg PRN Q5MIN PRN IV MODERATE PAIN; Start 02/11/17 at 16:15; Stop 02/12/17 at 16:14; Status DC Morphine Sulfate 1 mg 1 mg PRN Q10MIN PRN IV SEVERE PAIN; Start 02/11/17 at 16: 15; Stop 02/12/17 at 16:14; Status DC Lactated Ringer's (Iv Lactated Ringers) 1,000 ml @ 30 mls/hr Q24H IV Last administered on 02/11/17t 18:27; Start 02/11/17 at 16:08; Stop 02/12/17 at 04:07 ; Status DC Lidocaine HCl 2 ml PRN 1X PRN ID PRIOR TO IV START; Start 02/11/17 at 16:15; Stop 02/12/17 at 16:14; Status DC Hydromorphone HCl (Dilaudid) 0.5 mg PRN Q10MIN PRN IV SEV PAIN, Second choice; Start 02/11/17 at 16:15; Stop 02/12/17 at 16:14; Status DC Prochlorperazine Edisylate (Compazine) 5 mg PACU PRN PRN IV NAUSEA, MRX1; Start 02/11/17 at 16:15; Stop 02/12/17 at 16:14; Status DC Dexamethasone Sodium Phosphate (Decadron) 20 mg STK-MED ONCE .ROUTE ; Start at 16:16; Stop 02/11/17 at 16:17; Status DC Ondansetron HCl 4 mg 4 mg STK-MED ONCE .ROUTE ; Start 02/11/17 at 16:16; Stop at 16:17; Status DC Propofol (Diprivan) 0 ml @ As Directed STK-MED ONCE IV ; Start 02/11/17 at 16:16 ; Stop 02/11/17 at 16:17; Status DC Lidocaine HCl (Lidocaine HCl 2% Abboject) 100 mg STK-MED ONCE .ROUTE ; Start at 16:16; Stop 02/11/17 at 16:17; Status DC Midazolam HCl (Versed) 2 mg STK-MED ONCE .ROUTE ; Start 02/11/17 at 16:16; Stop 02/11/17 at 16:17; Status DC Fentanyl Citrate (Fentanyl 2ml Vial) 100 mcg STK-MED ONCE .ROUTE ; Start at 16:16; Stop 02/11/17 at 16:17; Status DC Insulin Aspart (Novolog) 0-9 UNITS TIDWMEALS SQ ; Start 02/12/17 at 08:00; Stop 02/12/17 at 10:56; Status DC Dextrose (Dextrose 50%-Water Syringe) 12.5 gm PRN Q15MIN PRN IV SEE COMMENTS; Start 02/11/17 at 17:30 Dexamethasone Sodium Phosphate (Decadron) 20 mg STK-MED ONCE .ROUTE ; Start at 17:29; Stop 02/11/17 at 17:30; Status DC Ondansetron HCl 4 mg 4 mg STK-MED ONCE .ROUTE ; Start 02/11/17 at 17:29; Stop at 17:30; Status DC Propofol (Diprivan) 20 ml @ As Directed STK-MED ONCE IV ; Start 02/11/17 at 17: 29; Stop 02/11/17 at 17:30; Status DC Lidocaine HCl (Lidocaine HCl 2% Abboject) 100 mg STK-MED ONCE .ROUTE ; Start at 17:29; Stop 02/11/17 at 17:30; Status DC Silver Nitrate/ Potassium Nitrate 1 each STK-MED ONCE TP ; Start 02/11/17 at 17: 48; Stop 02/11/17 at 17:49; Status DC Insulin Human Regular (Novolin R Vial) 10 unit 1X ONCE IV Last administered on 02/11/17t 18:50; Start 02/11/17 at 18:30; Stop 02/11/17 at 18:33; Status DC Calcium Carbonate/ Glycine (Tums) 500 mg PRN Q3HRS PRN PO HEARTBURN / GAS; Start 02/11/17 at 19:45 Simethicone (Gas-X) 80 mg PRN AFTMEALHC PRN PO GAS / BLOATING; Start 02/11/17 at 19:45 Zolpidem Tartrate (Ambien) 5 mg PRN QHS PRN PO INSOMNIA, MAY REPEAT IN 1HR; Start 02/11/17 at 19:45 Diphenhydramine HCl (Benadryl) 25 mg PRN Q6HRS PRN PO ITCHING; Start 02/11/17 at 19:45 Diphenhydramine HCl (Benadryl) 25 mg PRN Q6HRS PRN IV ITCHING; Start 02/11/17 at 20:00 Sodium Chloride (Normal Saline Flush) 3 ml QSHIFT PRN IV AFTER MEDS AND BLOOD DRAWS; Start 02/11/17 at 19:45 Dextrose (Dextrose 50%-Water Syringe) 12.5 gm PRN Q15MIN PRN IV SEE COMMENTS; Start 02/11/17 at 19:45; Status Cancel Oxycodone/ Acetaminophen (Percocet 5/325) 2 tab PRN Q4HRS PRN PO MODERATE PAIN , SEVERE PAIN Last administered on 02/13/17 09:37; Start 02/11/17 at 19:45 Ketorolac Tromethamine (Toradol) 30 mg PRN Q6HRS PRN IV PAIN Last administered on 02/13/17 04:34; Start 02/11/17 at 19:45; Stop 02/16/17 at 19:44 Gabapentin (Neurontin) 600 mg Q8HRS PO Last administered on 02/13/17 06:06; Start 02/11/17 at 22:00 Ondansetron HCl (Zofran) 4 mg PRN Q6HRS PRN IV NAUESA, 1ST CHOICE; Start at 19:45 Prochlorperazine Edisylate (Compazine) 5 mg PRN Q6HRS PRN IV N/V, 2nd Choice, MR X1; Start 02/11/17 at 19:45 Insulin Aspart (Novolog) 0-9 UNITS TIDWMEALS SQ Last administered on 02/13/17 09:45; Start 02/12/17 at 08:00 Dextrose (Dextrose 50%-Water Syringe) 12.5 gm PRN Q15MIN PRN IV SEE COMMENTS; Start 02/11/17 at 19:45; Status Cancel Insulin Human Regular (Novolin R Vial) 10 unit 1X ONCE IV Last administered on 02/11/17 20:44; Start 02/11/17 at 20:30; Stop 02/11/17 at 20:31; Status DC Vancomycin HCl 1 each 1 each PRN DAILY PRN MC SEE COMMENTS Last administered on 02/13/17 09:09; Start 02/12/17 at 08:00 Piperacillin Sod/ Tazobactam Sod 4.5 gm/Sodium Chloride 100 ml @ 200 mls/hr Q6HRS IV Last administered on 02/13/17 06:05; Start 02/12/17 at 08:00 Clindamycin Phosphate 50 ml @ 100 mls/hr Q8HRS IV Last administered on 06:06; Start 02/12/17 at 08:00; Stop 02/13/17 at 08:55; Status DC Vancomycin HCl/ Sodium Chloride (Iv Sodium Chloride 0.9% 500ml Bag) 500 ml @ 250 mls/hr 1X ONCE IV Last administered on 02/12/17 09:09; Start 02/12/17 at 09:00; Stop 02/12/17 at 10:59; Status DC Insulin Aspart (Novolog) 15 units 1X ONCE SQ Last administered on 02/12/17 09 :33; Start 02/12/17 at 08:30; Stop 02/12/17 at 08:37; Status DC Insulin Detemir (Levemir) 12 units 1X ONCE SQ Last administered on 02/12/17 09:34; Start 02/12/17 at 08:30; Stop 02/12/17 at 08:37; Status DC Insulin Aspart (Novolog) 9 units TIDAC SQ Last administered on 02/13/17 09:46 ; Start 02/12/17 at 11:30; Stop 02/13/17 at 12:02; Status DC Metformin HCl (Glucophage) 850 mg BIDWMEALS PO ; Start 02/12/17 at 09:30; Stop 02/12/17 at 09:30; Status DC Metformin HCl (Glucophage) 850 mg BIDWMEALS PO ; Start 02/13/17 at 17:00 Fluconazole (Diflucan) 200 mg DAILY PO Last administered on 02/13/17 09:37; Start 02/12/17 at 09:30 Glimepiride 1 mg 1 mg DAILY PO Last administered on 02/13/17 09:37; Start at 10:00 Vancomycin HCl/ Sodium Chloride (Iv Sodium Chloride 0.9% 250ml) 250 ml @ 250 mls/hr Q8H IV Last administered on 02/13/17 01:05; Start 02/12/17 at 17:00; Stop 02/13/17 at 09:02; Status DC Vancomycin HCl 1 each 1 each 1X ONCE MC Last administered on 02/13/17 08:30; Start 02/13/17 at 08:30; Stop 02/13/17 at 08:31; Status DC Vancomycin HCl/ Sodium Chloride (Iv Sodium Chloride 0.9% 250ml) 250 ml @ 167 mls/hr Q12H IV ; Start 02/13/17 at 12:00 Morphine Sulfate 4 mg PRN Q8HRS PRN IV PAIN Last administered on 02/13/17 09: 36; Start 02/13/17 at 09:15 Polyethylene Glycol (miraLAX PACKET) 17 gm PRN DAILY PRN PO CONSTIPATION Last administered on 02/13/17 09:35; Start 02/13/17 at 09:15 Docusate Sodium (Colace) 100 mg DAILY PO Last administered on 02/13/17 09:35; Start 02/13/17 at 10:00 Insulin Aspart (Novolog) 15 units TIDAC SQ ; Start 02/13/17 at 12:05 Vitals/I & O Vital Sign - Last 24 Hours 02/12/17 02/12/17 02/12/17 02/12/17 15:00 19:05 20:00 23:04 Temp 97.9 98.1 97.9 97.9 98.1 97.9 Pulse 95 92 93 Resp 18 16 18 B/P 97/63 105/65 104/68 Pulse Ox 98 97 98 O2 Delivery Room Air Nasal Cannula Nasal Cannula Nasal Cannula O2 Flow Rate 3.0 2.0 3.0 02/12/17 02/13/17 02/13/17 02/13/17 23:34 03:04 04:34 05:35 Temp 97.9 97.9 Pulse 88 Resp 20 18 20 20 B/P 95/59 Pulse Ox 98 98 98 98 O2 Delivery Nasal Cannula Nasal Cannula Nasal Cannula Nasal Cannula O2 Flow Rate 3.0 3.0 2.0 2.0 02/13/17 02/13/17 07:00 11:00 Temp 98.3 98.1 98.3 98.1 Pulse 84 91 Resp 18 18 B/P 95/66 104/61 Pulse Ox 98 95 O2 Delivery Room Air Room Air Intake and Output 02/12/17 02/12/17 02/13/17 14:59 22:59 06:59 Intake Total 480 ml 240 ml 1040 ml Output Total 1500 ml 525 ml Balance 480 ml -1260 ml 515 ml GINA REYNOLDS MD Feb 13, 2017 13:20
[2017-02-13] MEDS: VANCOMYCIN 1.25 GM in IV NORMAL SALINE 250ML 250 ML IV SCH (13:29)
[2017-02-13 15:00] VITALS: BP 99/63
[2017-02-13] MEDS: metFORMIN 850 MG TABLET PO SCH (18:29)
[2017-02-13 19:07] VITALS: BP 102/64
[2017-02-13 23:00] VITALS: BP 109/62
[2017-02-14] MEDS: PIPERACILLIN/TAZOBACTAM 4.5 GM in IV NORMAL SALINE 100ML 100 ML IV SCH ×4 (00:36→18:16)
[2017-02-14] MEDS: VANCOMYCIN 1.25 GM in IV NORMAL SALINE 250ML 250 ML IV SCH ×2 (00:37→12:39)
[2017-02-14 03:05] VITALS: BP 105/64
[2017-02-14 04:36] LABS: BASO # 0.1 x10^3/uL (0.0-0.2); BASO % 1 % (0-3); EOS % 4 % (0-3); HEMATOCRIT 32.2 % (36.0-47.0); HEMOGLOBIN 10.2 g/dL (12.0-15.5); LYMPH # 2.8 x10^3/uL (1.0-4.8); LYMPH % 31 % (24-48); MEAN CORPUSCULAR HEMOGLOBIN 26 pg (25-35); MEAN CORPUSCULAR HGB CONC 32 g/dL (31-37); MEAN CORPUSCULAR VOLUME 83 fL (79-100); MONO % 10 % (0-9); NEUT % 54 % (31-73); PLATELET COUNT 296 x10^3/uL (140-400); RED CELL DISTRIBUTION WIDTH 14.9 % (11.5-14.5); WHITE BLOOD COUNT 9.1 x10^3/uL (4.0-11.0)
[2017-02-14 05:06] LABS: ALBUMIN 2.1 g/dL (3.4-5.0); ALBUMIN/GLOBULIN RATIO 0.4 (1.0-1.7); CALCIUM 8.4 mg/dL (8.5-10.1); CREATININE 0.8 mg/dL (0.6-1.0); GFR 95.2; POTASSIUM 3.8 mmol/L (3.5-5.1); TOTAL BILIRUBIN 0.3 mg/dL (0.2-1.0); TOTAL PROTEIN 6.8 g/dL (6.4-8.2)
[2017-02-14] MEDS: GABAPENTIN 300 MG CAPSULE. PO SCH ×3 (06:32→22:43)
[2017-02-14] MEDS: oxyCODONE/APAP 5/325 1 TAB TABLET PO PRN ×3 (06:32→22:43)
[2017-02-14 07:00] VITALS: BP 116/65
[2017-02-14] MEDS: metFORMIN 850 MG TABLET PO SCH ×2 (10:00→18:11)
[2017-02-14] MEDS: GLIMEPIRIDE 2 MG TABLET. PO SCH (10:00)
[2017-02-14] MEDS: DOCUSATE SODIUM 100 MG CAPSULE. PO SCH (10:00)
[2017-02-14] MEDS: POLYETHYLENE GLYCOL 3350 17 GM PACKET. PO PRN (10:00)
[2017-02-14] MEDS: FLUCONAZOLE 100 MG TABLET. PO SCH (10:00)
[2017-02-14] MEDS: KETOROLAC TROMETHAMINE 30 MG/ML INJ. IV PRN (10:00)
[2017-02-14] MEDS: INSULIN ASPART 300 UNITS/3 ML INSULN.PEN SQ SCH ×6 (10:11→17:00)
--- NOTE | 2017-02-14 10:44 | PDOC ---
PROGRESS NOTES Chief Complaint Chief Complaint Sepsis Cellulitis ASSESSMENT AND PLAN: 1. Abscess in R buttock/vulva: s/p debridement/I&D on 02/[address] Rojas. cont packing, wound care. on Zosyn, vanco, diflucan 2. Pain control: not optimal. Has N/V, suspect 2/2 IV narcotics. 2. DM2: poor compliance at home with Hgb A1c 13.4. PO meds adjusted, added insulin with incremental increases, now better controlled 3. HTN: well controlled 4. UTI: on Abc as above obesity, BMI 32 History of Present Illness History of Present Illness poor night sleep due to pain. sl nauseous. Vitals Vitals Vital Signs Date Time Temp Pulse Resp B/P Pulse Ox O2 Delivery O2 Flow Rate FiO2 02/14/17 07:00 97.7 98 18 116/65 80 Room Air 97.7 02/13/17 19:07 3.0 Physical Exam General: Alert, Oriented X3, Cooperative, No acute distress Heart: Regular rate, Normal S1, Normal S2, No murmurs Lungs: Clear Abdomen: Normal bowel sounds, Soft, No tenderness, Other (Packing in place. No saturation.) Extremities: No edema Skin: No rashes Labs LABS Laboratory Tests Test 02/13/17 11:12 02/13/17 17:59 02/13/17 20:44 02/14/17 03:25 Glucose (Fingerstick) 219mg/dL (70-99) 168mg/dL (70-99) 87mg/dL (70-99) White Blood Count 9.1x10^3/uL (4.0-11.0) Red Blood Count 3.90x10^6/uL (3.50-5.40) Hemoglobin 10.2g/dL (12.0-15.5) Hematocrit 32.2% (36.0-47.0) Mean Corpuscular Volume 83fL (79-100) Mean Corpuscular Hemoglobin 26pg (25-35) Mean Corpuscular Hemoglobin Concent 32g/dL (31-37) Red Cell Distribution Width 14.9% (11.5-14.5) Platelet Count 296x10^3/uL (140-400) Neutrophils (%) (Auto) 54% (31-73) Lymphocytes (%) (Auto) 31% (24-48) Monocytes (%) (Auto) 10% (0-9) Eosinophils (%) (Auto) 4% (0-3) Basophils (%) (Auto) 1% (0-3) Neutrophils # (Auto) 4.9x10^3uL (1.8-7.7) Lymphocytes # (Auto) 2.8x10^3/uL (1.0-4.8) Monocytes # (Auto) 0.9x10^3/uL (0.0-1.1) Eosinophils # (Auto) 0.4x10^3/uL (0.0-0.7) Basophils # (Auto) 0.1x10^3/uL (0.0-0.2) Sodium Level 134mmol/L (136-145) Potassium Level 3.8mmol/L (3.5-5.1) Chloride Level 100mmol/L (98-107) Carbon Dioxide Level 27mmol/L (21-32) Anion Gap 7 (6-14) Blood Urea Nitrogen 9mg/dL (7-20) Creatinine 0.8mg/dL (0.6-1.0) Estimated GFR (Cockcroft-Gault) 95.2 BUN/Creatinine Ratio 11 (6-20) Glucose Level 136mg/dL (70-99) Calcium Level 8.4mg/dL (8.5-10.1) Total Bilirubin 0.3mg/dL (0.2-1.0) Aspartate Amino Transf (AST/SGOT) 18U/L (15-37) Alanine Aminotransferase (ALT/SGPT) 19U/L (14-59) Alkaline Phosphatase 93U/L (46-116) Total Protein 6.8g/dL (6.4-8.2) Albumin 2.1g/dL (3.4-5.0) Albumin/Globulin Ratio 0.4 (1.0-1.7) Test 02/14/17 07:08 Glucose (Fingerstick) 167mg/dL (70-99) RAHUL MOTNERO MD Feb 14, 2017 10:44
[2017-02-14 11:00] VITALS: BP 111/72
[2017-02-14] MEDS: VANCOMYCIN PER PHARMACY MC PRN (11:22)
[2017-02-14] MEDS ORDERED: MORPHINE SULFATE 2 MG/ML DISP.SYRIN. IV PRN (12:30)
[2017-02-14] MEDS: ONDANSETRON PF 4 MG/2 ML VIAL. IV PRN (12:37)
--- NOTE | 2017-02-14 14:39 | PDOC ---
Infectious Disease Note Subjective Subjective Comfortable, though some pain with walking Dressing recently changed Appetite good ROS ROS GEN: Denies fevers, chills, sweats CV: Denies chest pain RESP: Denies shortness of air, cough GI: Denies n/v/d Vital Sign Vital Signs Vital Signs Date Time Temp Pulse Resp B/P Pulse Ox O2 Delivery O2 Flow Rate FiO2 02/14/17 11:00 97.9 98 18 111/72 95 Nasal Cannula 3.0 97.9 Physical Exam PHYSICAL EXAM GENERAL: ALert, smiling HEENT: PERRL, OC/OP clear NECK: Supple LUNGS: Clear HEART: S1S2, no gallop, no murmur ABD: Soft, NT, BS present : Tai EXT: No edema, no cyanosis [employer]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, 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 3, no focal neurologic deficit SKIN: No rash IV: ok Labs Lab Laboratory Tests Test 02/13/17 17:59 02/13/17 20:44 02/14/17 03:25 02/14/17 07:08 Glucose (Fingerstick) 168mg/dL (70-99) 87mg/dL (70-99) 167mg/dL (70-99) White Blood Count 9.1x10^3/uL (4.0-11.0) Red Blood Count 3.90x10^6/uL (3.50-5.40) Hemoglobin 10.2g/dL (12.0-15.5) Hematocrit 32.2% (36.0-47.0) Mean Corpuscular Volume 83fL (79-100) Mean Corpuscular Hemoglobin 26pg (25-35) Mean Corpuscular Hemoglobin Concent 32g/dL (31-37) Red Cell Distribution Width 14.9% (11.5-14.5) Platelet Count 296x10^3/uL (140-400) Neutrophils (%) (Auto) 54% (31-73) Lymphocytes (%) (Auto) 31% (24-48) Monocytes (%) (Auto) 10% (0-9) Eosinophils (%) (Auto) 4% (0-3) Basophils (%) (Auto) 1% (0-3) Neutrophils # (Auto) 4.9x10^3uL (1.8-7.7) Lymphocytes # (Auto) 2.8x10^3/uL (1.0-4.8) Monocytes # (Auto) 0.9x10^3/uL (0.0-1.1) Eosinophils # (Auto) 0.4x10^3/uL (0.0-0.7) Basophils # (Auto) 0.1x10^3/uL (0.0-0.2) Sodium Level 134mmol/L (136-145) Potassium Level 3.8mmol/L (3.5-5.1) Chloride Level 100mmol/L (98-107) Carbon Dioxide Level 27mmol/L (21-32) Anion Gap 7 (6-14) Blood Urea Nitrogen 9mg/dL (7-20) Creatinine 0.8mg/dL (0.6-1.0) Estimated GFR (Cockcroft-Gault) 95.2 BUN/Creatinine Ratio 11 (6-20) Glucose Level 136mg/dL (70-99) Calcium Level 8.4mg/dL (8.5-10.1) Total Bilirubin 0.3mg/dL (0.2-1.0) Aspartate Amino Transf (AST/SGOT) 18U/L (15-37) Alanine Aminotransferase (ALT/SGPT) 19U/L (14-59) Alkaline Phosphatase 93U/L (46-116) Total Protein 6.8g/dL (6.4-8.2) Albumin 2.1g/dL (3.4-5.0) Albumin/Globulin Ratio 0.4 (1.0-1.7) Test 02/14/17 11:38 Glucose (Fingerstick) 275mg/dL (70-99) Micro BLOOD CULTURE Preliminary NO GROWTH AFTER 2 DAYS ANAEROBIC-AEROBIC CULTURE Preliminary Preliminary report ANAEROBIC RES 1 Preliminary No anaerobes recovered in 48 hours. AEROBIC CULT Final Final report AEROBIC RES 1 Final No growth in 48 hours. Objective Assessment Leukocytosis - Received Decadron 02/11. better Perineal abscess s/p I an D 02/11. cx NGTD DM - s/p Steroids Yeast in urine Plan Plan of Care Cont Vanc/Zosyn/Fluconazole. D/c Clinda F/u cults and hope to change to po soon Local wound care F/u labs Attending Co-Sign The patient was seen and interviewed as well as examined at the bedside. The chart was reviewed. The case was discussed. Agree with the plan of care. ALECIA LIVINGSTON APRN Feb 14, 2017 14:38 ESPERANZA AKINS MD Feb 14, 2017 16:58
[2017-02-14 15:00] VITALS: BP 123/78
[2017-02-14 19:05] VITALS: BP 142/78
[2017-02-14 23:05] VITALS: BP 118/71
[2017-02-15] MEDS: PIPERACILLIN/TAZOBACTAM 4.5 GM in IV NORMAL SALINE 100ML 100 ML IV SCH ×4 (00:38→18:24)
[2017-02-15] MEDS: VANCOMYCIN 1.25 GM in IV NORMAL SALINE 250ML 250 ML IV SCH ×2 (00:39→12:23)
[2017-02-15 03:05] VITALS: BP 115/69
[2017-02-15] MEDS: GABAPENTIN 300 MG CAPSULE. PO SCH ×3 (06:17→21:38)
[2017-02-15] MEDS: oxyCODONE/APAP 5/325 1 TAB TABLET PO PRN ×3 (06:17→21:38)
[2017-02-15 07:00] VITALS: BP 106/66
[2017-02-15] MEDS: INSULIN ASPART 300 UNITS/3 ML INSULN.PEN SQ SCH ×6 (08:00→17:33)
[2017-02-15] MEDS: DOCUSATE SODIUM 100 MG CAPSULE. PO SCH (09:03)
[2017-02-15] MEDS: metFORMIN 850 MG TABLET PO SCH ×2 (09:04→17:28)
[2017-02-15] MEDS: FLUCONAZOLE 100 MG TABLET. PO SCH (09:04)
[2017-02-15] MEDS: GLIMEPIRIDE 2 MG TABLET. PO SCH (09:04)
[2017-02-15 11:00] VITALS: BP 130/76
[2017-02-15] MEDS: VANCOMYCIN PER PHARMACY MC PRN (11:38)
[2017-02-15] MEDS: ONDANSETRON PF 4 MG/2 ML VIAL. IV PRN (12:26)
--- NOTE | 2017-02-15 12:52 | PDOC ---
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 Perineal dressing in place IV: ok Labs Lab Laboratory Tests Test 02/14/17 16:46 02/14/17 21:27 02/15/17 11:42 Glucose (Fingerstick) 70mg/dL (70-99) 107mg/dL (70-99) 91mg/dL (70-99) Micro BLOOD CULTURE Preliminary NO GROWTH AFTER 3 DAYS ANAEROBIC-AEROBIC CULTURE Preliminary Preliminary report ANAEROBIC RES 1 Preliminary No anaerobes recovered in 48 hours. AEROBIC CULT Final Final report AEROBIC RES 1 Final No growth in 48 hours. Objective Assessment Leukocytosis - Received Decadron 02/11. better Perineal abscess s/p I an D 02/11. cx NGTD DM - s/p Steroids Yeast in urine Plan Plan of Care Cont Vanc/Zosyn/Fluconazole. F/u cults and hope to change to po soon Local wound care F/u labs d/c vanc Attending Co-Sign The patient was seen and interviewed as well as examined at the bedside. The chart was reviewed. The case was discussed. Agree with the plan of care. ALECIA LIVINGSTON APRN Feb 15, 2017 12:52 ESPERANZA AKINS MD Feb 15, 2017 15:29
--- NOTE | 2017-02-15 13:08 | PDOC ---
PROGRESS NOTES Chief Complaint Chief Complaint cc: R buttock/vulva abscess with cellulitis Diabetes Mellitis type II HTN obesity History of Present Illness History of Present Illness Patient seen and evaluated at bedside. No acute events overnight. Patient endorses nausea, but tolerable with medications. d/w nurse Vitals Vitals Vital Signs Date Time Temp Pulse Resp B/P Pulse Ox O2 Delivery O2 Flow Rate FiO2 02/15/17 11:00 98.1 86 18 130/76 95 Room Air 98.1 02/14/17 15:00 3.0 Physical Exam General: Alert, Oriented X3, Cooperative, No acute distress Heart: Regular rate, Normal S1, Normal S2, No murmurs Lungs: Clear, Other (negative chest retractions and/or other accessory muscle use. ) Abdomen: Normal bowel sounds, Soft, No tenderness, Other Extremities: No cyanosis, No edema Skin: No rashes, Other (full perineal exam deferred. packing in place. dressing not saturated, clean, dry, and intact. ) Labs LABS Laboratory Tests Test 02/14/17 16:46 02/14/17 21:27 02/15/17 11:42 Glucose (Fingerstick) 70mg/dL (70-99) 107mg/dL (70-99) 91mg/dL (70-99) Review of Systems Review of Systems (+) post-op pain POD #4 s/p ID and debridement (+) nausea denies chest pain, palpitations, abdominal pain, vomiting/diarrhea, lightheadedness/dizziness, or fever/chills. Assessment and Plan Assessmemt and Plan Problems Medical Problems: (1) Chronic vulvitis Status: Acute (2) Gluteal abscess Status: Acute (3) Hyperglycemia Status: Acute (4) Leukocytosis Status: Acute (5) Perineal abscess Status: Acute (6) Vaginal discharge Status: Acute (7) Vulvar inflammation Status: Acute Assessment: 1. Abscess in R buttock/vulva POD#4 s/p debridement/I&D on 02/[address] Rojas. 2. diabetes mellitus type II 3. HTN 4. UTI Plan: 1.) continue Vanc/Zosyn/Fluconazole, per ID 2.) local wound care. 3.) continue pain control and antiemetics. 4.) SSI with glucose checks AC. 5.) monitor AM labs 6.) f/u on cultures. Problems: Comment Review of Relevant I have reviewed the following items pat (where applicable) has been applied. Labs Laboratory Tests Test 02/13/17 17:59 02/13/17 20:44 02/14/17 03:25 02/14/17 07:08 Glucose (Fingerstick) 168mg/dL (70-99) 87mg/dL (70-99) 167mg/dL (70-99) White Blood Count 9.1x10^3/uL (4.0-11.0) Red Blood Count 3.90x10^6/uL (3.50-5.40) Hemoglobin 10.2g/dL (12.0-15.5) Hematocrit 32.2% (36.0-47.0) Mean Corpuscular Volume 83fL (79-100) Mean Corpuscular Hemoglobin 26pg (25-35) Mean Corpuscular Hemoglobin Concent 32g/dL (31-37) Red Cell Distribution Width 14.9% (11.5-14.5) Platelet Count 296x10^3/uL (140-400) Neutrophils (%) (Auto) 54% (31-73) Lymphocytes (%) (Auto) 31% (24-48) Monocytes (%) (Auto) 10% (0-9) Eosinophils (%) (Auto) 4% (0-3) Basophils (%) (Auto) 1% (0-3) Neutrophils # (Auto) 4.9x10^3uL (1.8-7.7) Lymphocytes # (Auto) 2.8x10^3/uL (1.0-4.8) Monocytes # (Auto) 0.9x10^3/uL (0.0-1.1) Eosinophils # (Auto) 0.4x10^3/uL (0.0-0.7) Basophils # (Auto) 0.1x10^3/uL (0.0-0.2) Sodium Level 134mmol/L (136-145) Potassium Level 3.8mmol/L (3.5-5.1) Chloride Level 100mmol/L (98-107) Carbon Dioxide Level 27mmol/L (21-32) Anion Gap 7 (6-14) Blood Urea Nitrogen 9mg/dL (7-20) Creatinine 0.8mg/dL (0.6-1.0) Estimated GFR (Cockcroft-Gault) 95.2 BUN/Creatinine Ratio 11 (6-20) Glucose Level 136mg/dL (70-99) Calcium Level 8.4mg/dL (8.5-10.1) Total Bilirubin 0.3mg/dL (0.2-1.0) Aspartate Amino Transf (AST/SGOT) 18U/L (15-37) Alanine Aminotransferase (ALT/SGPT) 19U/L (14-59) Alkaline Phosphatase 93U/L (46-116) Total Protein 6.8g/dL (6.4-8.2) Albumin 2.1g/dL (3.4-5.0) Albumin/Globulin Ratio 0.4 (1.0-1.7) Test 02/14/17 11:38 02/14/17 16:46 02/14/17 21:27 02/15/17 11:42 Glucose (Fingerstick) 275mg/dL (70-99) 70mg/dL (70-99) 107mg/dL (70-99) 91mg/dL (70-99) Laboratory Tests Test 02/14/17 16:46 02/14/17 21:27 02/15/17 11:42 Glucose (Fingerstick) 70mg/dL (70-99) 107mg/dL (70-99) 91mg/dL (70-99) Microbiology 02/11/17 Blood Culture - Preliminary, Resulted NO GROWTH AFTER 3 DAYS 02/11/17 Wet Prep - Final, Complete 02/11/17 Urine Culture - Final, Complete 02/11/17 Urine Culture Result 1 (PER) - Final, Complete 02/11/17 Gram Stain - Final, Complete Medications Current Medications Fentanyl Citrate 50 mcg 50 mcg PRN Q15MIN PRN IV PAIN GREATER THAN 3/10 Last administered on 02/11/17 17:27; Start 02/11/17 at 13:00; Stop 02/12/17 at 12:59 ; Status DC Sodium Chloride (Iv Sodium Chloride 0.9% 1000ml Bag) 1,000 ml @ 1,000 mls/hr 1X ONCE IV Last administered on 02/11/17 13:48; Start 02/11/17 at 13:00; Stop 02/11/17 at 13:59; Status DC Iohexol (Omnipaque 300 Mg/ml) 75 ml 1X ONCE IV Last administered on 02/11/17 13:30; Start 02/11/17 at 13:30; Stop 02/11/17 at 13:31; Status DC Info 1 each 1 each PRN DAILY PRN MC SEE COMMENTS; Start 02/11/17 at 13:30; Stop 02/13/17 at 13:29; Status DC Vancomycin HCl 250 ml @ 250 mls/hr 1X ONCE IV Last administered on 02/11/17 17:35; Start 02/11/17 at 15:00; Stop 02/11/17 at 15:59; Status DC Piperacillin Sod/ Tazobactam Sod/ Sodium Chloride (Zosyn/Iv Sodium Chloride 0.9 % 100ml) 100 ml @ 200 mls/hr 1X ONCE IV Last administered on 02/11/17 16:06 ; Start 02/11/17 at 15:00; Stop 02/11/17 at 15:29; Status DC Ondansetron HCl (Zofran) 4 mg PRN Q8HRS PRN IV NAUSEA/VOMITING Last administered on 02/11/17 21:45; Start 02/11/17 at 15:30; Stop 02/12/17 at 15:29 ; Status DC Morphine Sulfate 4 mg 4 mg PRN Q2HR PRN IV PAIN Last administered on 02/12/17 09:14; Start 02/11/17 at 15:30; Stop 02/12/17 at 15:29; Status DC Sodium Chloride 1,000 ml @ 2,190 mls/hr Q28M IV ; Start 02/11/17 at 15:30; Stop 02/11/17 at 16:30; Status DC Clindamycin Phosphate (Cleocin 600 Mg Premix) 50 ml @ 100 mls/hr 1X ONCE IV Last administered on 02/11/17 19:03; Start 02/11/17 at 16:00; Stop 02/11/17 at 16:29; Status DC Ondansetron HCl (Zofran) 4 mg PRN Q6HRS PRN IV NAUSEA/VOMITING; Start 02/11/17 at 16:15; Stop 02/12/17 at 16:14; Status DC Fentanyl Citrate (Fentanyl 2ml Vial) 25 mcg PRN Q5MIN PRN IV MILD PAIN; Start 02/11/17 at 16:15; Stop 02/12/17 at 16:14; Status DC Fentanyl Citrate (Fentanyl 2ml Vial) 50 mcg PRN Q5MIN PRN IV MODERATE PAIN; Start 02/11/17 at 16:15; Stop 02/12/17 at 16:14; Status DC Morphine Sulfate 1 mg 1 mg PRN Q10MIN PRN IV SEVERE PAIN; Start 02/11/17 at 16: 15; Stop 02/12/17 at 16:14; Status DC Lactated Ringer's (Iv Lactated Ringers) 1,000 ml @ 30 mls/hr Q24H IV Last administered on 02/11/17t 18:27; Start 02/11/17 at 16:08; Stop 02/12/17 at 04:07 ; Status DC Lidocaine HCl 2 ml PRN 1X PRN ID PRIOR TO IV START; Start 02/11/17 at 16:15; Stop 02/12/17 at 16:14; Status DC Hydromorphone HCl (Dilaudid) 0.5 mg PRN Q10MIN PRN IV SEV PAIN, Second choice; Start 02/11/17 at 16:15; Stop 02/12/17 at 16:14; Status DC Prochlorperazine Edisylate (Compazine) 5 mg PACU PRN PRN IV NAUSEA, MRX1; Start 02/11/17 at 16:15; Stop 02/12/17 at 16:14; Status DC Dexamethasone Sodium Phosphate (Decadron) 20 mg STK-MED ONCE .ROUTE ; Start at 16:16; Stop 02/11/17 at 16:17; Status DC Ondansetron HCl 4 mg 4 mg STK-MED ONCE .ROUTE ; Start 02/11/17 at 16:16; Stop at 16:17; Status DC Propofol (Diprivan) 0 ml @ As Directed STK-MED ONCE IV ; Start 02/11/17 at 16:16 ; Stop 02/11/17 at 16:17; Status DC Lidocaine HCl (Lidocaine HCl 2% Abboject) 100 mg STK-MED ONCE .ROUTE ; Start at 16:16; Stop 02/11/17 at 16:17; Status DC Midazolam HCl (Versed) 2 mg STK-MED ONCE .ROUTE ; Start 02/11/17 at 16:16; Stop 02/11/17 at 16:17; Status DC Fentanyl Citrate (Fentanyl 2ml Vial) 100 mcg STK-MED ONCE .ROUTE ; Start at 16:16; Stop 02/11/17 at 16:17; Status DC Insulin Aspart (Novolog) 0-9 UNITS TIDWMEALS SQ ; Start 02/12/17 at 08:00; Stop 02/12/17 at 10:56; Status DC Dextrose (Dextrose 50%-Water Syringe) 12.5 gm PRN Q15MIN PRN IV SEE COMMENTS; Start 02/11/17 at 17:30 Dexamethasone Sodium Phosphate (Decadron) 20 mg STK-MED ONCE .ROUTE ; Start at 17:29; Stop 02/11/17 at 17:30; Status DC Ondansetron HCl 4 mg 4 mg STK-MED ONCE .ROUTE ; Start 02/11/17 at 17:29; Stop at 17:30; Status DC Propofol (Diprivan) 20 ml @ As Directed STK-MED ONCE IV ; Start 02/11/17 at 17: 29; Stop 02/11/17 at 17:30; Status DC Lidocaine HCl (Lidocaine HCl 2% Abboject) 100 mg STK-MED ONCE .ROUTE ; Start at 17:29; Stop 02/11/17 at 17:30; Status DC Silver Nitrate/ Potassium Nitrate 1 each STK-MED ONCE TP ; Start 02/11/17 at 17: 48; Stop 02/11/17 at 17:49; Status DC Insulin Human Regular (Novolin R Vial) 10 unit 1X ONCE IV Last administered on 02/11/17t 18:50; Start 02/11/17 at 18:30; Stop 02/11/17 at 18:33; Status DC Calcium Carbonate/ Glycine (Tums) 500 mg PRN Q3HRS PRN PO HEARTBURN / GAS; Start 02/11/17 at 19:45 Simethicone (Gas-X) 80 mg PRN AFTMEALHC PRN PO GAS / BLOATING; Start 02/11/17 at 19:45 Zolpidem Tartrate (Ambien) 5 mg PRN QHS PRN PO INSOMNIA, MAY REPEAT IN 1HR; Start 02/11/17 at 19:45 Diphenhydramine HCl (Benadryl) 25 mg PRN Q6HRS PRN PO ITCHING; Start 02/11/17 at 19:45 Diphenhydramine HCl (Benadryl) 25 mg PRN Q6HRS PRN IV ITCHING; Start 02/11/17 at 20:00 Sodium Chloride (Normal Saline Flush) 3 ml QSHIFT PRN IV AFTER MEDS AND BLOOD DRAWS; Start 02/11/17 at 19:45 Dextrose (Dextrose 50%-Water Syringe) 12.5 gm PRN Q15MIN PRN IV SEE COMMENTS; Start 02/11/17 at 19:45; Status Cancel Oxycodone/ Acetaminophen (Percocet 5/325) 2 tab PRN Q4HRS PRN PO MODERATE PAIN , SEVERE PAIN Last administered on 02/15/17 06:17; Start 02/11/17 at 19:45 Ketorolac Tromethamine (Toradol) 30 mg PRN Q6HRS PRN IV PAIN Last administered on 02/14/17 10:00; Start 02/11/17 at 19:45; Stop 02/16/17 at 19:44 Gabapentin (Neurontin) 600 mg Q8HRS PO Last administered on 02/15/17 06:17; Start 02/11/17 at 22:00 Ondansetron HCl (Zofran) 4 mg PRN Q6HRS PRN IV NAUESA, 1ST CHOICE Last administered on 02/15/17 12:26; Start 02/11/17 at 19:45 Prochlorperazine Edisylate (Compazine) 5 mg PRN Q6HRS PRN IV N/V, 2nd Choice, MR X1; Start 02/11/17 at 19:45 Insulin Aspart (Novolog) 0-9 UNITS TIDWMEALS SQ Last administered on 02/14/17 12:45; Start 02/12/17 at 08:00 Dextrose (Dextrose 50%-Water Syringe) 12.5 gm PRN Q15MIN PRN IV SEE COMMENTS; Start 02/11/17 at 19:45; Status Cancel Insulin Human Regular (Novolin R Vial) 10 unit 1X ONCE IV Last administered on 02/11/17 20:44; Start 02/11/17 at 20:30; Stop 02/11/17 at 20:31; Status DC Vancomycin HCl 1 each 1 each PRN DAILY PRN MC SEE COMMENTS Last administered on 02/15/17 11:38; Start 02/12/17 at 08:00 Piperacillin Sod/ Tazobactam Sod 4.5 gm/Sodium Chloride 100 ml @ 200 mls/hr Q6HRS IV Last administered on 02/15/17 12:22; Start 02/12/17 at 08:00 Clindamycin Phosphate 50 ml @ 100 mls/hr Q8HRS IV Last administered on 06:06; Start 02/12/17 at 08:00; Stop 02/13/17 at 08:55; Status DC Vancomycin HCl/ Sodium Chloride (Iv Sodium Chloride 0.9% 500ml Bag) 500 ml @ 250 mls/hr 1X ONCE IV Last administered on 02/12/17 09:09; Start 02/12/17 at 09:00; Stop 02/12/17 at 10:59; Status DC Insulin Aspart (Novolog) 15 units 1X ONCE SQ Last administered on 02/12/17 09 :33; Start 02/12/17 at 08:30; Stop 02/12/17 at 08:37; Status DC Insulin Detemir (Levemir) 12 units 1X ONCE SQ Last administered on 02/12/17 09:34; Start 02/12/17 at 08:30; Stop 02/12/17 at 08:37; Status DC Insulin Aspart (Novolog) 9 units TIDAC SQ Last administered on 02/13/17 09:46 ; Start 02/12/17 at 11:30; Stop 02/13/17 at 12:02; Status DC Metformin HCl (Glucophage) 850 mg BIDWMEALS PO ; Start 02/12/17 at 09:30; Stop 02/12/17 at 09:30; Status DC Metformin HCl (Glucophage) 850 mg BIDWMEALS PO Last administered on 02/15/17 09:04; Start 02/13/17 at 17:00 Fluconazole (Diflucan) 200 mg DAILY PO Last administered on 02/15/17 09:04; Start 02/12/17 at 09:30 Glimepiride 1 mg 1 mg DAILY PO Last administered on 02/15/17 09:04; Start at 10:00 Vancomycin HCl/ Sodium Chloride (Iv Sodium Chloride 0.9% 250ml) 250 ml @ 250 mls/hr Q8H IV Last administered on 02/13/17 01:05; Start 02/12/17 at 17:00; Stop 02/13/17 at 09:02; Status DC Vancomycin HCl 1 each 1 each 1X ONCE MC Last administered on 02/13/17 08:30; Start 02/13/17 at 08:30; Stop 02/13/17 at 08:31; Status DC Vancomycin HCl/ Sodium Chloride (Iv Sodium Chloride 0.9% 250ml) 250 ml @ 167 mls/hr Q12H IV Last administered on 02/15/17 12:23; Start 02/13/17 at 12:00 Morphine Sulfate 4 mg PRN Q8HRS PRN IV PAIN Last administered on 02/13/17 09: 36; Start 02/13/17 at 09:15; Stop 02/14/17 at 12:13; Status DC Polyethylene Glycol (miraLAX PACKET) 17 gm PRN DAILY PRN PO CONSTIPATION Last administered on 02/14/17 10:00; Start 02/13/17 at 09:15 Docusate Sodium (Colace) 100 mg DAILY PO Last administered on 02/15/17 09:03; Start 02/13/17 at 10:00 Insulin Aspart (Novolog) 15 units TIDAC SQ Last administered on 02/15/17 09:10 ; Start 02/13/17 at 12:05 Morphine Sulfate 2 mg PRN Q4HRS PRN IV PAIN Last administered on 02/14/17 12: 38; Start 02/14/17 at 12:30 Vitals/I & O Vital Sign - Last 24 Hours 02/14/17 02/14/17 02/14/17 02/14/17 15:00 19:05 20:00 22:43 Temp 96.3 96.3 Pulse 96 102 Resp 18 20 18 B/P 123/78 142/78 Pulse Ox 91 98 O2 Delivery Nasal Cannula Room Air Room Air Room Air O2 Flow Rate 3.0 02/14/17 02/15/17 02/15/17 02/15/17 23:05 00:41 03:05 06:17 Temp 98.1 98.1 Pulse 95 95 Resp 18 18 18 18 B/P 118/71 115/69 Pulse Ox 93 94 O2 Delivery Room Air Room Air Room Air 02/15/17 02/15/17 02/15/17 02/15/17 07:00 08:00 08:16 11:00 Temp 97.9 98.1 97.9 98.1 Pulse 91 86 Resp 18 18 B/P 106/66 130/76 Pulse Ox 88 95 O2 Delivery Room Air Room Air Room Air Room Air Intake and Output 02/14/17 02/14/17 02/15/17 15:00 23:00 07:00 Intake Total 400 ml 500 ml Output Total 850 ml 850 ml 600 ml Balance -450 ml -850 ml -100 ml ELIZA AMADO III DO Feb 15, 2017 13:08
[2017-02-15 15:00] VITALS: BP 137/78
[2017-02-15 19:42] VITALS: BP 125/73
[2017-02-15] MEDS: DEXTROSE 50% 25 GM / 50ML DISP.SYRIN. IV PRN ×2 (21:37→21:48)
[2017-02-15 23:26] VITALS: BP 138/74
[2017-02-16] MEDS: PIPERACILLIN/TAZOBACTAM 4.5 GM in IV NORMAL SALINE 100ML 100 ML IV SCH ×3 (00:49→12:00)
[2017-02-16] MEDS: oxyCODONE/APAP 5/325 1 TAB TABLET PO PRN ×3 (02:23→21:21)
[2017-02-16 03:03] VITALS: BP 125/77
[2017-02-16] MEDS: GABAPENTIN 300 MG CAPSULE. PO SCH ×3 (05:08→21:18)
[2017-02-16 05:28] LABS: BASO # 0.1 x10^3/uL (0.0-0.2); BASO % 1 % (0-3); EOS % 5 % (0-3); HEMATOCRIT 31.1 % (36.0-47.0); HEMOGLOBIN 9.7 g/dL (12.0-15.5); LYMPH # 2.7 x10^3/uL (1.0-4.8); LYMPH % 33 % (24-48); MEAN CORPUSCULAR HEMOGLOBIN 26 pg (25-35); MEAN CORPUSCULAR HGB CONC 31 g/dL (31-37); MEAN CORPUSCULAR VOLUME 83 fL (79-100); MONO % 10 % (0-9); NEUT % 51 % (31-73); PLATELET COUNT 274 x10^3/uL (140-400); RED BLOOD COUNT 3.75 x10^6/uL (3.50-5.40); RED CELL DISTRIBUTION WIDTH 15.4 % (11.5-14.5); WHITE BLOOD COUNT 8.1 x10^3/uL (4.0-11.0)
[2017-02-16 05:43] LABS: CALCIUM 8.1 mg/dL (8.5-10.1); CREATININE 0.7 mg/dL (0.6-1.0); POTASSIUM 4.2 mmol/L (3.5-5.1)
[2017-02-16 07:00] VITALS: BP 123/71
[2017-02-16] MEDS: FLUCONAZOLE 100 MG TABLET. PO SCH (08:13)
[2017-02-16] MEDS: metFORMIN 850 MG TABLET PO SCH ×2 (08:14→17:43)
[2017-02-16] MEDS: GLIMEPIRIDE 2 MG TABLET. PO SCH (08:14)
[2017-02-16] MEDS: INSULIN ASPART 300 UNITS/3 ML INSULN.PEN SQ SCH ×6 (08:18→17:00)
[2017-02-16] MEDS: DOCUSATE SODIUM 100 MG CAPSULE. PO SCH (08:19)
[2017-02-16 10:53] VITALS: BP 131/71
--- NOTE | 2017-02-16 11:41 | PDOC ---
Infectious Disease Note Subjective Subjective Tai removed Pain with movement and walking. ROS ROS GEN: Denies fevers, chills, sweats CV: Denies chest pain RESP: Denies shortness of air, cough GI: Denies n/v/d Vital Sign Vital Signs Vital Signs Date Time Temp Pulse Resp B/P Pulse Ox O2 Delivery O2 Flow Rate FiO2 02/16/17 10:53 97.7 86 20 131/71 99 Room Air 97.7 Physical Exam PHYSICAL EXAM GENERAL: Appears comfortable LUNGS: Clear HEART: S1S2 ABD: Soft, NT, BS present : Tai out EXT: No edema, no cyanosis [employer]: Alert, oriented x 3, no focal neurologic deficit SKIN: No rash. Perineal dressing in place IV: ok Labs Lab Laboratory Tests Test 02/15/17 11:42 02/15/17 17:26 02/15/17 20:49 02/15/17 21:25 Glucose (Fingerstick) 91mg/dL (70-99) 147mg/dL (70-99) 49mg/dL (70-99) 50mg/dL (70-99) Test 02/15/17 21:46 02/16/17 02:27 02/16/17 05:05 02/16/17 07:11 Glucose (Fingerstick) 76mg/dL (70-99) 147mg/dL (70-99) 184mg/dL (70-99) White Blood Count 8.1x10^3/uL (4.0-11.0) Red Blood Count 3.75x10^6/uL (3.50-5.40) Hemoglobin 9.7g/dL (12.0-15.5) Hematocrit 31.1% (36.0-47.0) Mean Corpuscular Volume 83fL (79-100) Mean Corpuscular Hemoglobin 26pg (25-35) Mean Corpuscular Hemoglobin Concent 31g/dL (31-37) Red Cell Distribution Width 15.4% (11.5-14.5) Platelet Count 274x10^3/uL (140-400) Neutrophils (%) (Auto) 51% (31-73) Lymphocytes (%) (Auto) 33% (24-48) Monocytes (%) (Auto) 10% (0-9) Eosinophils (%) (Auto) 5% (0-3) Basophils (%) (Auto) 1% (0-3) Neutrophils # (Auto) 4.1x10^3uL (1.8-7.7) Lymphocytes # (Auto) 2.7x10^3/uL (1.0-4.8) Monocytes # (Auto) 0.8x10^3/uL (0.0-1.1) Eosinophils # (Auto) 0.4x10^3/uL (0.0-0.7) Basophils # (Auto) 0.1x10^3/uL (0.0-0.2) Sodium Level 138mmol/L (136-145) Potassium Level 4.2mmol/L (3.5-5.1) Chloride Level 104mmol/L (98-107) Carbon Dioxide Level 29mmol/L (21-32) Anion Gap 5 (6-14) Blood Urea Nitrogen 6mg/dL (7-20) Creatinine 0.7mg/dL (0.6-1.0) Estimated GFR (Cockcroft-Gault) 111.0 Glucose Level 160mg/dL (70-99) Calcium Level 8.1mg/dL (8.5-10.1) Micro BLOOD CULTURE Preliminary NO GROWTH AFTER 4 DAYS Objective Assessment Leukocytosis - Received Decadron 02/11. better Perineal abscess s/p I an D 02/11. cx no growth DM - s/p Steroids Yeast in urine Plan Plan of Care Cont Zosyn and Fluconazole. change po soon ambulation Attending Co-Sign The patient was seen and interviewed as well as examined at the bedside. The chart was reviewed. The case was discussed. Agree with the plan of care. change to po augmentin for d/c ALECIA LIVINGSTON APRN Feb 16, 2017 11:40 ESPERANZA AKINS MD Feb 16, 2017 13:15
--- NOTE | 2017-02-16 13:42 | PDOC ---
PROGRESS NOTES Chief Complaint Chief Complaint cc: R buttock/vulva abscess with cellulitis Diabetes Mellitis type II HTN obesity History of Present Illness History of Present Illness Patient seen and evaluated at bedside. No acute events overnight. Patient continues to have nausea with dry heaves, but tolerable with medications. Patient states her post-operative pain is exacerbated with position, but well managed with current pain regimen. d/w nurse Vitals Vitals Vital Signs Date Time Temp Pulse Resp B/P Pulse Ox O2 Delivery O2 Flow Rate FiO2 02/16/17 10:53 97.7 86 20 131/71 99 Room Air 97.7 Physical Exam General: Alert, Oriented X3, Cooperative, No acute distress Heart: Regular rate, Normal S1, Normal S2, No murmurs Lungs: Clear, Other (negative chest retractions and/or other accessory muscle use. ) Abdomen: Normal bowel sounds, Soft, No tenderness, Other Extremities: No cyanosis, No edema Skin: No rashes, Other (full perineal exam deferred. packing in place. dressing not saturated, clean, dry, and intact. ) Labs LABS Laboratory Tests Test 02/15/17 17:26 02/15/17 20:49 02/15/17 21:25 02/15/17 21:46 Glucose (Fingerstick) 147mg/dL (70-99) 49mg/dL (70-99) 50mg/dL (70-99) 76mg/dL (70-99) Test 02/16/17 02:27 02/16/17 05:05 02/16/17 07:11 02/16/17 12:06 Glucose (Fingerstick) 147mg/dL (70-99) 184mg/dL (70-99) 130mg/dL (70-99) White Blood Count 8.1x10^3/uL (4.0-11.0) Red Blood Count 3.75x10^6/uL (3.50-5.40) Hemoglobin 9.7g/dL (12.0-15.5) Hematocrit 31.1% (36.0-47.0) Mean Corpuscular Volume 83fL (79-100) Mean Corpuscular Hemoglobin 26pg (25-35) Mean Corpuscular Hemoglobin Concent 31g/dL (31-37) Red Cell Distribution Width 15.4% (11.5-14.5) Platelet Count 274x10^3/uL (140-400) Neutrophils (%) (Auto) 51% (31-73) Lymphocytes (%) (Auto) 33% (24-48) Monocytes (%) (Auto) 10% (0-9) Eosinophils (%) (Auto) 5% (0-3) Basophils (%) (Auto) 1% (0-3) Neutrophils # (Auto) 4.1x10^3uL (1.8-7.7) Lymphocytes # (Auto) 2.7x10^3/uL (1.0-4.8) Monocytes # (Auto) 0.8x10^3/uL (0.0-1.1) Eosinophils # (Auto) 0.4x10^3/uL (0.0-0.7) Basophils # (Auto) 0.1x10^3/uL (0.0-0.2) Sodium Level 138mmol/L (136-145) Potassium Level 4.2mmol/L (3.5-5.1) Chloride Level 104mmol/L (98-107) Carbon Dioxide Level 29mmol/L (21-32) Anion Gap 5 (6-14) Blood Urea Nitrogen 6mg/dL (7-20) Creatinine 0.7mg/dL (0.6-1.0) Estimated GFR (Cockcroft-Gault) 111.0 Glucose Level 160mg/dL (70-99) Calcium Level 8.1mg/dL (8.5-10.1) Assessment and Plan Assessmemt and Plan Problems Medical Problems: (1) Chronic vulvitis Status: Acute (2) Gluteal abscess Status: Acute (3) Hyperglycemia Status: Acute (4) Leukocytosis Status: Acute (5) Perineal abscess Status: Acute (6) Vaginal discharge Status: Acute (7) Vulvar inflammation Status: Acute Assessment: 1. Abscess in R buttock/vulva POD#4 s/p debridement/I&D on 02/[address] Rojas. 2. diabetes mellitus type II 3. HTN 4. UTI Plan: 1.) continue Zosyn/Fluconazole. plans to transition to PO medications soon, per ID 2.) local wound care. 3.) continue pain control and antiemetics. 4.) SSI with glucose checks AC. 5.) monitor AM labs 6.) f/u on cultures. 7.) PT/OT when appropriate. Problems: Comment Review of Relevant I have reviewed the following items pat (where applicable) has been applied. Labs Laboratory Tests Test 02/14/17 16:46 02/14/17 21:27 02/15/17 11:42 02/15/17 17:26 Glucose (Fingerstick) 70mg/dL (70-99) 107mg/dL (70-99) 91mg/dL (70-99) 147mg/dL (70-99) Test 02/15/17 20:49 02/15/17 21:25 02/15/17 21:46 02/16/17 02:27 Glucose (Fingerstick) 49mg/dL (70-99) 50mg/dL (70-99) 76mg/dL (70-99) 147mg/dL (70-99) Test 02/16/17 05:05 02/16/17 07:11 02/16/17 12:06 White Blood Count 8.1x10^3/uL (4.0-11.0) Red Blood Count 3.75x10^6/uL (3.50-5.40) Hemoglobin 9.7g/dL (12.0-15.5) Hematocrit 31.1% (36.0-47.0) Mean Corpuscular Volume 83fL (79-100) Mean Corpuscular Hemoglobin 26pg (25-35) Mean Corpuscular Hemoglobin Concent 31g/dL (31-37) Red Cell Distribution Width 15.4% (11.5-14.5) Platelet Count 274x10^3/uL (140-400) Neutrophils (%) (Auto) 51% (31-73) Lymphocytes (%) (Auto) 33% (24-48) Monocytes (%) (Auto) 10% (0-9) Eosinophils (%) (Auto) 5% (0-3) Basophils (%) (Auto) 1% (0-3) Neutrophils # (Auto) 4.1x10^3uL (1.8-7.7) Lymphocytes # (Auto) 2.7x10^3/uL (1.0-4.8) Monocytes # (Auto) 0.8x10^3/uL (0.0-1.1) Eosinophils # (Auto) 0.4x10^3/uL (0.0-0.7) Basophils # (Auto) 0.1x10^3/uL (0.0-0.2) Sodium Level 138mmol/L (136-145) Potassium Level 4.2mmol/L (3.5-5.1) Chloride Level 104mmol/L (98-107) Carbon Dioxide Level 29mmol/L (21-32) Anion Gap 5 (6-14) Blood Urea Nitrogen 6mg/dL (7-20) Creatinine 0.7mg/dL (0.6-1.0) Estimated GFR (Cockcroft-Gault) 111.0 Glucose Level 160mg/dL (70-99) Calcium Level 8.1mg/dL (8.5-10.1) Glucose (Fingerstick) 184mg/dL (70-99) 130mg/dL (70-99) Laboratory Tests Test 02/15/17 17:26 02/15/17 20:49 02/15/17 21:25 02/15/17 21:46 Glucose (Fingerstick) 147mg/dL (70-99) 49mg/dL (70-99) 50mg/dL (70-99) 76mg/dL (70-99) Test 02/16/17 02:27 02/16/17 05:05 02/16/17 07:11 02/16/17 12:06 Glucose (Fingerstick) 147mg/dL (70-99) 184mg/dL (70-99) 130mg/dL (70-99) White Blood Count 8.1x10^3/uL (4.0-11.0) Red Blood Count 3.75x10^6/uL (3.50-5.40) Hemoglobin 9.7g/dL (12.0-15.5) Hematocrit 31.1% (36.0-47.0) Mean Corpuscular Volume 83fL (79-100) Mean Corpuscular Hemoglobin 26pg (25-35) Mean Corpuscular Hemoglobin Concent 31g/dL (31-37) Red Cell Distribution Width 15.4% (11.5-14.5) Platelet Count 274x10^3/uL (140-400) Neutrophils (%) (Auto) 51% (31-73) Lymphocytes (%) (Auto) 33% (24-48) Monocytes (%) (Auto) 10% (0-9) Eosinophils (%) (Auto) 5% (0-3) Basophils (%) (Auto) 1% (0-3) Neutrophils # (Auto) 4.1x10^3uL (1.8-7.7) Lymphocytes # (Auto) 2.7x10^3/uL (1.0-4.8) Monocytes # (Auto) 0.8x10^3/uL (0.0-1.1) Eosinophils # (Auto) 0.4x10^3/uL (0.0-0.7) Basophils # (Auto) 0.1x10^3/uL (0.0-0.2) Sodium Level 138mmol/L (136-145) Potassium Level 4.2mmol/L (3.5-5.1) Chloride Level 104mmol/L (98-107) Carbon Dioxide Level 29mmol/L (21-32) Anion Gap 5 (6-14) Blood Urea Nitrogen 6mg/dL (7-20) Creatinine 0.7mg/dL (0.6-1.0) Estimated GFR (Cockcroft-Gault) 111.0 Glucose Level 160mg/dL (70-99) Calcium Level 8.1mg/dL (8.5-10.1) Microbiology 02/11/17 Blood Culture - Preliminary, Resulted NO GROWTH AFTER 4 DAYS 02/11/17 Wet Prep - Final, Complete 02/11/17 Urine Culture - Final, Complete 02/11/17 Urine Culture Result 1 (PER) - Final, Complete 02/11/17 Gram Stain - Final, Complete Medications Current Medications Fentanyl Citrate 50 mcg 50 mcg PRN Q15MIN PRN IV PAIN GREATER THAN 3/10 Last administered on 02/11/17 17:27; Start 02/11/17 at 13:00; Stop 02/12/17 at 12:59 ; Status DC Sodium Chloride (Iv Sodium Chloride 0.9% 1000ml Bag) 1,000 ml @ 1,000 mls/hr 1X ONCE IV Last administered on 02/11/17 13:48; Start 02/11/17 at 13:00; Stop 02/11/17 at 13:59; Status DC Iohexol (Omnipaque 300 Mg/ml) 75 ml 1X ONCE IV Last administered on 02/11/17 13:30; Start 02/11/17 at 13:30; Stop 02/11/17 at 13:31; Status DC Info 1 each 1 each PRN DAILY PRN MC SEE COMMENTS; Start 02/11/17 at 13:30; Stop 02/13/17 at 13:29; Status DC Vancomycin HCl 250 ml @ 250 mls/hr 1X ONCE IV Last administered on 02/11/17 17:35; Start 02/11/17 at 15:00; Stop 02/11/17 at 15:59; Status DC Piperacillin Sod/ Tazobactam Sod/ Sodium Chloride (Zosyn/Iv Sodium Chloride 0.9 % 100ml) 100 ml @ 200 mls/hr 1X ONCE IV Last administered on 02/11/17 16:06 ; Start 02/11/17 at 15:00; Stop 02/11/17 at 15:29; Status DC Ondansetron HCl (Zofran) 4 mg PRN Q8HRS PRN IV NAUSEA/VOMITING Last administered on 02/11/17 21:45; Start 02/11/17 at 15:30; Stop 02/12/17 at 15:29 ; Status DC Morphine Sulfate 4 mg 4 mg PRN Q2HR PRN IV PAIN Last administered on 02/12/17 09:14; Start 02/11/17 at 15:30; Stop 02/12/17 at 15:29; Status DC Sodium Chloride 1,000 ml @ 2,190 mls/hr Q28M IV ; Start 02/11/17 at 15:30; Stop 02/11/17 at 16:30; Status DC Clindamycin Phosphate (Cleocin 600 Mg Premix) 50 ml @ 100 mls/hr 1X ONCE IV Last administered on 02/11/17 19:03; Start 02/11/17 at 16:00; Stop 02/11/17 at 16:29; Status DC Ondansetron HCl (Zofran) 4 mg PRN Q6HRS PRN IV NAUSEA/VOMITING; Start 02/11/17 at 16:15; Stop 02/12/17 at 16:14; Status DC Fentanyl Citrate (Fentanyl 2ml Vial) 25 mcg PRN Q5MIN PRN IV MILD PAIN; Start 02/11/17 at 16:15; Stop 02/12/17 at 16:14; Status DC Fentanyl Citrate (Fentanyl 2ml Vial) 50 mcg PRN Q5MIN PRN IV MODERATE PAIN; Start 02/11/17 at 16:15; Stop 02/12/17 at 16:14; Status DC Morphine Sulfate 1 mg 1 mg PRN Q10MIN PRN IV SEVERE PAIN; Start 02/11/17 at 16: 15; Stop 02/12/17 at 16:14; Status DC Lactated Ringer's (Iv Lactated Ringers) 1,000 ml @ 30 mls/hr Q24H IV Last administered on 02/11/17t 18:27; Start 02/11/17 at 16:08; Stop 02/12/17 at 04:07 ; Status DC Lidocaine HCl 2 ml PRN 1X PRN ID PRIOR TO IV START; Start 02/11/17 at 16:15; Stop 02/12/17 at 16:14; Status DC Hydromorphone HCl (Dilaudid) 0.5 mg PRN Q10MIN PRN IV SEV PAIN, Second choice; Start 02/11/17 at 16:15; Stop 02/12/17 at 16:14; Status DC Prochlorperazine Edisylate (Compazine) 5 mg PACU PRN PRN IV NAUSEA, MRX1; Start 02/11/17 at 16:15; Stop 02/12/17 at 16:14; Status DC Dexamethasone Sodium Phosphate (Decadron) 20 mg STK-MED ONCE .ROUTE ; Start at 16:16; Stop 02/11/17 at 16:17; Status DC Ondansetron HCl 4 mg 4 mg STK-MED ONCE .ROUTE ; Start 02/11/17 at 16:16; Stop at 16:17; Status DC Propofol (Diprivan) 0 ml @ As Directed STK-MED ONCE IV ; Start 02/11/17 at 16:16 ; Stop 02/11/17 at 16:17; Status DC Lidocaine HCl (Lidocaine HCl 2% Abboject) 100 mg STK-MED ONCE .ROUTE ; Start at 16:16; Stop 02/11/17 at 16:17; Status DC Midazolam HCl (Versed) 2 mg STK-MED ONCE .ROUTE ; Start 02/11/17 at 16:16; Stop 02/11/17 at 16:17; Status DC Fentanyl Citrate (Fentanyl 2ml Vial) 100 mcg STK-MED ONCE .ROUTE ; Start at 16:16; Stop 02/11/17 at 16:17; Status DC Insulin Aspart (Novolog) 0-9 UNITS TIDWMEALS SQ ; Start 02/12/17 at 08:00; Stop 02/12/17 at 10:56; Status DC Dextrose (Dextrose 50%-Water Syringe) 12.5 gm PRN Q15MIN PRN IV SEE COMMENTS Last administered on 02/15/17t 21:37; Start 02/11/17 at 17:30 Dexamethasone Sodium Phosphate (Decadron) 20 mg STK-MED ONCE .ROUTE ; Start at 17:29; Stop 02/11/17 at 17:30; Status DC Ondansetron HCl 4 mg 4 mg STK-MED ONCE .ROUTE ; Start 02/11/17 at 17:29; Stop at 17:30; Status DC Propofol (Diprivan) 20 ml @ As Directed STK-MED ONCE IV ; Start 02/11/17 at 17: 29; Stop 02/11/17 at 17:30; Status DC Lidocaine HCl (Lidocaine HCl 2% Abboject) 100 mg STK-MED ONCE .ROUTE ; Start at 17:29; Stop 02/11/17 at 17:30; Status DC Silver Nitrate/ Potassium Nitrate 1 each STK-MED ONCE TP ; Start 02/11/17 at 17: 48; Stop 02/11/17 at 17:49; Status DC Insulin Human Regular (Novolin R Vial) 10 unit 1X ONCE IV Last administered on 02/11/17t 18:50; Start 02/11/17 at 18:30; Stop 02/11/17 at 18:33; Status DC Calcium Carbonate/ Glycine (Tums) 500 mg PRN Q3HRS PRN PO HEARTBURN / GAS; Start 02/11/17 at 19:45 Simethicone (Gas-X) 80 mg PRN AFTMEALHC PRN PO GAS / BLOATING; Start 02/11/17 at 19:45 Zolpidem Tartrate (Ambien) 5 mg PRN QHS PRN PO INSOMNIA, MAY REPEAT IN 1HR; Start 02/11/17 at 19:45 Diphenhydramine HCl (Benadryl) 25 mg PRN Q6HRS PRN PO ITCHING; Start 02/11/17 at 19:45 Diphenhydramine HCl (Benadryl) 25 mg PRN Q6HRS PRN IV ITCHING; Start 02/11/17 at 20:00 Sodium Chloride (Normal Saline Flush) 3 ml QSHIFT PRN IV AFTER MEDS AND BLOOD DRAWS; Start 02/11/17 at 19:45 Dextrose (Dextrose 50%-Water Syringe) 12.5 gm PRN Q15MIN PRN IV SEE COMMENTS; Start 02/11/17 at 19:45; Status Cancel Oxycodone/ Acetaminophen (Percocet 5/325) 2 tab PRN Q4HRS PRN PO MODERATE PAIN , SEVERE PAIN Last administered on 02/16/17 02:23; Start 02/11/17 at 19:45 Ketorolac Tromethamine (Toradol) 30 mg PRN Q6HRS PRN IV PAIN Last administered on 02/14/17 10:00; Start 02/11/17 at 19:45; Stop 02/16/17 at 19:44 Gabapentin (Neurontin) 600 mg Q8HRS PO Last administered on 02/16/17 05:08; Start 02/11/17 at 22:00 Ondansetron HCl (Zofran) 4 mg PRN Q6HRS PRN IV NAUESA, 1ST CHOICE Last administered on 02/15/17 12:26; Start 02/11/17 at 19:45 Prochlorperazine Edisylate (Compazine) 5 mg PRN Q6HRS PRN IV N/V, 2nd Choice, MR X1; Start 02/11/17 at 19:45 Insulin Aspart (Novolog) 0-9 UNITS TIDWMEALS SQ Last administered on 02/16/17 08:18; Start 02/12/17 at 08:00 Dextrose (Dextrose 50%-Water Syringe) 12.5 gm PRN Q15MIN PRN IV SEE COMMENTS; Start 02/11/17 at 19:45; Status Cancel Insulin Human Regular (Novolin R Vial) 10 unit 1X ONCE IV Last administered on 02/11/17 20:44; Start 02/11/17 at 20:30; Stop 02/11/17 at 20:31; Status DC Vancomycin HCl 1 each 1 each PRN DAILY PRN MC SEE COMMENTS Last administered on 02/15/17 11:38; Start 02/12/17 at 08:00; Stop 02/15/17 at 15:29; Status DC Piperacillin Sod/ Tazobactam Sod 4.5 gm/Sodium Chloride 100 ml @ 200 mls/hr Q6HRS IV Last administered on 02/16/17 05:08; Start 02/12/17 at 08:00; Stop at 13:16; Status DC Clindamycin Phosphate 50 ml @ 100 mls/hr Q8HRS IV Last administered on 06:06; Start 02/12/17 at 08:00; Stop 02/13/17 at 08:55; Status DC Vancomycin HCl/ Sodium Chloride (Iv Sodium Chloride 0.9% 500ml Bag) 500 ml @ 250 mls/hr 1X ONCE IV Last administered on 02/12/17 09:09; Start 02/12/17 at 09:00; Stop 02/12/17 at 10:59; Status DC Insulin Aspart (Novolog) 15 units 1X ONCE SQ Last administered on 02/12/17 09 :33; Start 02/12/17 at 08:30; Stop 02/12/17 at 08:37; Status DC Insulin Detemir (Levemir) 12 units 1X ONCE SQ Last administered on 02/12/17 09:34; Start 02/12/17 at 08:30; Stop 02/12/17 at 08:37; Status DC Insulin Aspart (Novolog) 9 units TIDAC SQ Last administered on 02/13/17 09:46 ; Start 02/12/17 at 11:30; Stop 02/13/17 at 12:02; Status DC Metformin HCl (Glucophage) 850 mg BIDWMEALS PO ; Start 02/12/17 at 09:30; Stop 02/12/17 at 09:30; Status DC Metformin HCl (Glucophage) 850 mg BIDWMEALS PO Last administered on 02/16/17 08:14; Start 02/13/17 at 17:00 Fluconazole (Diflucan) 200 mg DAILY PO Last administered on 02/16/17 08:13; Start 02/12/17 at 09:30 Glimepiride 1 mg 1 mg DAILY PO Last administered on 02/16/17 08:14; Start at 10:00 Vancomycin HCl/ Sodium Chloride (Iv Sodium Chloride 0.9% 250ml) 250 ml @ 250 mls/hr Q8H IV Last administered on 02/13/17 01:05; Start 02/12/17 at 17:00; Stop 02/13/17 at 09:02; Status DC Vancomycin HCl 1 each 1 each 1X ONCE MC Last administered on 02/13/17 08:30; Start 02/13/17 at 08:30; Stop 02/13/17 at 08:31; Status DC Vancomycin HCl/ Sodium Chloride (Iv Sodium Chloride 0.9% 250ml) 250 ml @ 167 mls/hr Q12H IV Last administered on 02/15/17 12:23; Start 02/13/17 at 12:00; Stop 02/15/17 at 15:29; Status DC Morphine Sulfate 4 mg PRN Q8HRS PRN IV PAIN Last administered on 02/13/17 09: 36; Start 02/13/17 at 09:15; Stop 02/14/17 at 12:13; Status DC Polyethylene Glycol (miraLAX PACKET) 17 gm PRN DAILY PRN PO CONSTIPATION Last administered on 02/14/17 10:00; Start 02/13/17 at 09:15 Docusate Sodium (Colace) 100 mg DAILY PO Last administered on 02/15/17 09:03; Start 02/13/17 at 10:00 Insulin Aspart (Novolog) 15 units TIDAC SQ Last administered on 02/16/17 08:18 ; Start 02/13/17 at 12:05 Morphine Sulfate 2 mg PRN Q4HRS PRN IV PAIN Last administered on 02/14/17 12: 38; Start 02/14/17 at 12:30 Amoxicillin/ Clavulanate Potassium (Augmentin 875/ 125mg) 1 tab BID PO ; Start 02/16/17 at 21:00 Vitals/I & O Vital Sign - Last 24 Hours 02/15/17 02/15/17 02/15/17 02/15/17 15:00 17:28 19:20 19:42 Temp 98.1 99.1 98.1 99.1 Pulse 91 91 Resp 18 18 B/P 137/78 125/73 Pulse Ox 95 95 O2 Delivery Room Air Room Air Room Air Room Air 02/15/17 02/15/17 02/16/17 02/16/17 21:38 23:26 02:23 03:03 Temp 97.5 97.7 97.5 97.7 Pulse 87 84 Resp 18 18 B/P 138/74 125/77 Pulse Ox 95 96 96 94 O2 Delivery Room Air Room Air Room Air Room Air 02/16/17 02/16/17 02/16/17 02/16/17 03:24 07:00 08:30 10:53 Temp 97.7 97.7 97.7 97.7 Pulse 92 86 Resp 20 20 B/P 123/71 131/71 Pulse Ox 94 97 99 O2 Delivery Room Air Room Air Room Air Room Air Intake and Output 02/15/17 02/15/17 02/16/17 15:00 23:00 07:00 Output Total 2300 ml Balance -2300 ml ELIZA AMADO III DO Feb 16, 2017 13:41
[2017-02-16] MEDS ORDERED: PIPERACILLIN/TAZOBACTAM 4.5 GM in IV NORMAL SALINE 100ML 100 ML IV ONE (13:45)
[2017-02-16 15:05] VITALS: BP 139/84
[2017-02-16 19:00] VITALS: BP 133/77
[2017-02-16] MEDS: AMOXICILLIN/K CLAV 875/125MG TABLET. PO SCH (21:18)
[2017-02-16 23:01] VITALS: BP 155/93
[2017-02-16] MEDS: ONDANSETRON PF 4 MG/2 ML VIAL. IV PRN (23:06)
[2017-02-17 03:00] VITALS: BP 121/61
[2017-02-17 05:13] LABS: BASO # 0.1 x10^3/uL (0.0-0.2); BASO % 1 % (0-3); EOS % 5 % (0-3); HEMATOCRIT 31.9 % (36.0-47.0); HEMOGLOBIN 10.2 g/dL (12.0-15.5); LYMPH # 2.7 x10^3/uL (1.0-4.8); LYMPH % 28 % (24-48); MEAN CORPUSCULAR HEMOGLOBIN 26 pg (25-35); MEAN CORPUSCULAR HGB CONC 32 g/dL (31-37); MEAN CORPUSCULAR VOLUME 83 fL (79-100); MONO % 8 % (0-9); NEUT % 58 % (31-73); PLATELET COUNT 311 x10^3/uL (140-400); RED BLOOD COUNT 3.85 x10^6/uL (3.50-5.40); RED CELL DISTRIBUTION WIDTH 15.2 % (11.5-14.5); WHITE BLOOD COUNT 9.7 x10^3/uL (4.0-11.0)
[2017-02-17 05:49] LABS: CALCIUM 8.5 mg/dL (8.5-10.1); CREATININE 0.7 mg/dL (0.6-1.0); POTASSIUM 4.2 mmol/L (3.5-5.1)
[2017-02-17] MEDS: GABAPENTIN 300 MG CAPSULE. PO SCH ×2 (06:45→14:27)
[2017-02-17 07:00] VITALS: BP 146/80
[2017-02-17] MEDS: INSULIN ASPART 300 UNITS/3 ML INSULN.PEN SQ SCH ×6 (08:00→17:00)
[2017-02-17] MEDS: oxyCODONE/APAP 5/325 1 TAB TABLET PO PRN ×2 (08:29→12:27)
[2017-02-17] MEDS: AMOXICILLIN/K CLAV 875/125MG TABLET. PO SCH (08:29)
[2017-02-17] MEDS: FLUCONAZOLE 100 MG TABLET. PO SCH (08:29)
[2017-02-17] MEDS: GLIMEPIRIDE 2 MG TABLET. PO SCH (08:29)
[2017-02-17] MEDS: metFORMIN 850 MG TABLET PO SCH (08:30)
[2017-02-17] MEDS: DOCUSATE SODIUM 100 MG CAPSULE. PO SCH (08:39)
[2017-02-17] MEDS ORDERED: OXYC1TAB7 PO (10:28)
[2017-02-17] MEDS ORDERED: Metformin Hcl PO (10:28)
[2017-02-17] MEDS ORDERED: AMOX1TAB11 PO (10:28)
[2017-02-17] MEDS ORDERED: GLIM2TAB2 PO (10:28)
--- NOTE | 2017-02-17 10:35 | PDOC ---
Infectious Disease Note Subjective Subjective feeling better ROS ROS GEN: Denies fevers, chills, sweats HEENT: Denies blurred vision, sore throat CV: Denies chest pain RESP: Denies shortness of air, cough GI: Denies n/v/d NEURO: Denies confusion, dizziness MSK: Denies weakness, joint pain/swelling Vital Sign Vital Signs Vital Signs Date Time Temp Pulse Resp B/P Pulse Ox O2 Delivery O2 Flow Rate FiO2 02/17/17 09:30 Room Air 02/17/17 08:29 95 3.0 02/17/17 07:00 97.9 93 18 146/80 97.9 Physical Exam PHYSICAL EXAM GENERAL: NAD, Alert HEENT: PERRL, OC/OP NECK: Supple, no JVD, no LN LUNGS: Clear HEART: S1S2, no gallop, no murmur ABD: Soft, NT, no organomegaly, no rebound EXT: No edema, no cyanosis BLOCK SEALER: Alert, oriented x 3, no focal neurologic deficit SKIN: No rash,, gluteal wound clean IV: ok Labs Lab Laboratory Tests Test 02/16/17 12:06 02/16/17 16:24 02/16/17 20:42 02/17/17 04:15 Glucose (Fingerstick) 130mg/dL (70-99) 130mg/dL (70-99) 142mg/dL (70-99) White Blood Count 9.7x10^3/uL (4.0-11.0) Red Blood Count 3.85x10^6/uL (3.50-5.40) Hemoglobin 10.2g/dL (12.0-15.5) Hematocrit 31.9% (36.0-47.0) Mean Corpuscular Volume 83fL (79-100) Mean Corpuscular Hemoglobin 26pg (25-35) Mean Corpuscular Hemoglobin Concent 32g/dL (31-37) Red Cell Distribution Width 15.2% (11.5-14.5) Platelet Count 311x10^3/uL (140-400) Neutrophils (%) (Auto) 58% (31-73) Lymphocytes (%) (Auto) 28% (24-48) Monocytes (%) (Auto) 8% (0-9) Eosinophils (%) (Auto) 5% (0-3) Basophils (%) (Auto) 1% (0-3) Neutrophils # (Auto) 5.6x10^3uL (1.8-7.7) Lymphocytes # (Auto) 2.7x10^3/uL (1.0-4.8) Monocytes # (Auto) 0.8x10^3/uL (0.0-1.1) Eosinophils # (Auto) 0.5x10^3/uL (0.0-0.7) Basophils # (Auto) 0.1x10^3/uL (0.0-0.2) Sodium Level 138mmol/L (136-145) Potassium Level 4.2mmol/L (3.5-5.1) Chloride Level 103mmol/L (98-107) Carbon Dioxide Level 29mmol/L (21-32) Anion Gap 6 (6-14) Blood Urea Nitrogen 7mg/dL (7-20) Creatinine 0.7mg/dL (0.6-1.0) Estimated GFR (Cockcroft-Gault) 111.0 Glucose Level 180mg/dL (70-99) Calcium Level 8.5mg/dL (8.5-10.1) Test 02/17/17 07:38 Glucose (Fingerstick) 207mg/dL (70-99) Objective Assessment Leukocytosis - Received Decadron 02/11. better Perineal abscess s/p I an D 02/11. cx no growth DM - s/p Steroids Yeast in urine Plan Plan of Care augmentin, d/c ok ambulation ESPERANZA AKINS MD February 17, 2017 10:35
[2017-02-17 10:40] VITALS: BP 144/79
[2017-02-17] MEDS: ONDANSETRON PF 4 MG/2 ML VIAL. IV PRN (11:25)
--- NOTE | 2017-02-17 13:19 | PDOC3 ---
Discharge Summary [facility] Date of Admission: Feb 11, 2017 Discharge Date: February 17, 2017 Admitting Diagnosis R buttock/vulva abscess with cellulitis Diabetes Mellitis type II HTN obesity Problems: Final Diagnosis CONSULTS ob id Brief Hospital Course Ms. Griggs is a 41 old F, comes for right buttock pain, was found ascess, s/p i and d by ob. cx neg. was treated with iv abx, now ok to dc with augmentin for another 5ds. pt has no insurance, will fu with outpt clinic for wound care. dc time 35min General: Alert, Oriented X3, Cooperative, No acute distress Heart: Regular rate, Normal S1, Normal S2, No murmurs Lungs: Clear, Other (negative chest retractions and/or other accessory muscle use. ) Abdomen: Normal bowel sounds, Soft, No tenderness, Other Extremities: No cyanosis, No edema Skin: No rashes, Other (full perineal exam deferred. packing in place. dressing not saturated, clean, dry, and intact. ) Patient History: Problems: Disposition home CONDITION AT DISCHARGE: Improved Diet ada Scheduled ([Metformin Hcl]) 1,000 MG PO BIDWMEALS Amoxicillin/Potassium Clav (Amox Tr-K Clv 875-125 Mg Tab) 1 TAB PO BID Glimepiride (Glimepiride) 1 MG PO DAILY Glimepiride (Glimepiride) 2 MG PO DAILY Metformin Hcl (Glucophage) 850 MG PO BIDWMEALS Scheduled PRN Oxycodone Hcl/Acetaminophen (Oxycodone-Acetaminophen 5-325) 1-2 TAB PO PRN Q4HRS PRN PRN MODERATE PAIN, SEVERE PAIN Follow Up outpt clinic TORRES COLORADO MD February 17, 2017 13:19
[2017-02-17 14:40] VITALS: BP 140/81
[2017-02-18] MEDS ORDERED: GLIMEPIRIDE 2 MG TABLET. PO SCH (09:00)
== END 2017-02-17 19:00 | disposition home or self-care (01) | DRG 871 ==
LOC: ER 11:09 → 1 WEST ICU 15:05 → 4 NORTH 18:06
PROVIDERS: ADMIT Internal Medicine Hematology & Oncology; ATTEND Internal Medicine Hematology & Oncology
PROC: 0HDAXZZ Extraction of Inguinal Skin, External Approach (ICD-10-PCS; principal; 2017-02-11 17:00)
DX: A41.9 Sepsis, unspecified organism (principal); E43 Unspecified severe protein-calorie malnutrition; L02.31 Cutaneous abscess of buttock; N39.0 Urinary tract infection, site not specified; N76.2 Acute vulvitis; E11.65 Type 2 diabetes mellitus with hyperglycemia; E66.9 Obesity, unspecified; I10 Essential (primary) hypertension; Z83.3 Family history of diabetes mellitus; Z68.32 Body mass index [BMI] 32.0-32.9, adult
CPT/HCPCS: 36415; 74170; 80048; 80053; 80202; 81001; 82962; 83036; 83605; 85007; 85027; 87040; 87071; 87075; 87086; 87205; 87491; 87591; 96361; 96365; 96375; 96376; J1100; J1815; J1885; J2250; J2270; J2405; J2543; J2704; J3010; J3370; J3490; J7030; J7040; J7042; J7050; J7120; Q0111; Q9967; 99285-25

== ENCOUNTER 2018-12-01 09:13 | Inpatient (IN) | payer SELFPAY ==
[~2018-12-01] VITALS: Ht 154.9 cm; Wt 72.6 kg
[~2018-12-01 09:13] MED LIST: AMLO5TAB10 PO; AMOX1TAB11 PO; ASCO500T2 PO; CLOP75TA PO; GLIM2TAB2 PO; METF10007 PO; METF850T PO; MULT1TAB90 PO; Metformin Hcl PO; NYST60PO TP; OXYC1TAB7 PO
[2018-12-01] MEDS ORDERED: LIDOCAINE 2% PF Vial for OR 5 ML VIAL. ONE (09:49)
[2018-12-01] MEDS ORDERED: PROPOFOL 20 ML IV ONE (09:49)
[2018-12-01] MEDS ORDERED: LIDOCAINE 1% 20 ML VIAL. ONE (10:16)
[2018-12-01] MEDS ORDERED: IV RINGERS,LACTATED 1000ML 1,000 ML IV SCH (10:20)
[2018-12-01 10:27] LABS: U PREG PATIENT NEGATIVE (NEG)
[2018-12-01 10:28] LABS: BASO # 0.1 x10^3/uL (0.0-0.2); BASO % 1 % (0-3); EOS # 0.2 x10^3/uL (0.0-0.7); EOS % 2 % (0-3); HEMATOCRIT 33.7 % (36.0-47.0); HEMOGLOBIN 10.9 g/dL (12.0-15.5); LYMPH # 1.8 x10^3/uL (1.0-4.8); LYMPH % 22 % (24-48); MEAN CORPUSCULAR HEMOGLOBIN 25 pg (25-35); MEAN CORPUSCULAR HGB CONC 32 g/dL (31-37); MEAN CORPUSCULAR VOLUME 79 fL (79-100); MONO # 0.6 x10^3/uL (0.0-1.1); MONO % 8 % (0-9); NEUT # 5.6 x10^3uL (1.8-7.7); NEUT % 68 % (31-73); PLATELET COUNT 236 x10^3/uL (140-400); RED BLOOD COUNT 4.29 x10^6/uL (3.50-5.40); RED CELL DISTRIBUTION WIDTH 16.5 % (11.5-14.5); WHITE BLOOD COUNT 8.3 x10^3/uL (4.0-11.0)
[2018-12-01 10:33] LABS: CALCIUM 9.3 mg/dL (8.5-10.1); CREATININE 0.8 mg/dL (0.6-1.0); GFR 94.3; POTASSIUM 4.5 mmol/L (3.5-5.1)
[2018-12-01] MEDS ORDERED: DEXAMETHASONE SOD PHOS 20 MG/5 ML VIAL. ONE (10:36)
[2018-12-01] MEDS ORDERED: SEVOFLURANE 16 TO 30 MINUTES. IH ONE (10:36)
[2018-12-01] MEDS ORDERED: ONDANSETRON PF 4 MG/2 ML VIAL. ONE (10:37)
[2018-12-01] MEDS ORDERED: IV NORMAL SALINE 1000ML BAG 1,000 ML IV SCH (11:06)
--- NOTE | 2018-12-01 11:14 | PDOC ---
BRIEF OPERATIVE NOTE Date: Dec 01, 2018 Pre-Op Diagnosis Non-healing left first toe amputation Post-Op Diagnosis same Procedure Performed Excisional debridement subcutaneous tissue, bone, and tendon left first toe Surgeon Dr. Prabhakar Block Saw Operator Titi Mendoza NP Anesthesia Type: General Blood Loss minimal Specimens Obtained cultures Findings wound bed clean, good bleeding Complications none Operative Note see dictated note TITI HUI DRILLING CONTRACTOR Dec 01, 2018 11:14
[2018-12-01] MEDS ORDERED: VANCOMYCIN PER PHARMACY MC PRN (11:15)
[2018-12-01] MEDS ORDERED: SENNOSIDES/DOCUSATE 8.6/50MG TABLET. PO PRN (11:15)
[2018-12-01] MEDS ORDERED: ONDANSETRON PF 4 MG/2 ML VIAL. IV PRN (11:15)
[2018-12-01] MEDS ORDERED: oxyCODONE/APAP 5/325 1 TAB TABLET PO PRN ×2 (11:15)
[2018-12-01] MEDS ORDERED: INSULIN LISPRO 100 UNIT/ML 3ML VIAL. SQ ONE (11:15)
[2018-12-01] MEDS ORDERED: PIP/TAZO PER PHARMACY MC PRN (11:15)
--- NOTE | 2018-12-01 11:20 | OP ---
DATE OF SURGERY: 12/01/2018 SURGEON: Vanessa Prabhakar M.D. PORTER BAGGAGE: Carol Palencia APRN. PREOPERATIVE DIAGNOSIS: Previous left first toe open amputation, which has gangrenous necrotic tissue within the wound bed. POSTOPERATIVE DIAGNOSIS: Previous left first toe open amputation, which has gangrenous necrotic tissue within the wound bed. OPERATION PERFORMED: 1. Sharp excisional debridement of the patient's left first toe open amputation wound, removing necrotic skin, subcutaneous tissue, muscle, tendon and small amount of bone. Debridement measurements at the end of the debridement were 3 cm in length x 1.5 cm in width x 1.5 cm in depth. 2. Left first toe amputation site wound VAC placement. ANESTHESIA USED: General anesthesia. BLOOD LOSS: Minimal, approximately 5 mL. INDICATIONS: The patient underwent recent left first toe open amputation, which has been cared for with a wound VAC dressing. There was good healing of the site up until recently when she started developing drainage and necrotic tissue within the wound bed. She was seen in the office by my nurse practitioner, Babs Guevara and myself yesterday and found to have tunneling, necrotic tissue within the wound and exposed tendon within the wound. I recommended left first toe amputation site debridement and wound VAC placement. I explained to her that she will need to stay in the hospital after this for wound VAC care and IV antibiotics. Informed consent was obtained including the risks of bleeding, infection, need for further debridements or possible need for further amputation in the future. DETAILS OF THE PROCEDURE: The patient was brought to the operating room, placed on the table in supine position. She received general anesthesia monitored throughout the case by the anesthesiologist. Her left foot was prepped and draped by normal sterile fashion. The open wound at the previous first toe amputation site had necrotic tissue within the wound bed. We sharply excised this from the wound bed. Underneath this, there was an exposed large tendon, which was excised from the wound. There was further deeper necrotic muscle and that was removed and a small amount of necrotic first metatarsal bone, which I excised with a rongeur. We continued debridement until there was no further necrotic tissue within the wound bed. The skin edges were also cleaned up removing necrotic tissue and measurements were taken listed above. We gained hemostasis with electrocautery. We irrigated the open wound with copious amounts of antibiotic solution. We then placed a wound VAC sponge within the wound and sealed it to suction. We placed a Kerlix on the foot. She tolerated the surgery with no immediate complications. VANESSA PRABHAKAR MD DR: STEPHAN/tal JOB#: [id number] / [id number]
[2018-12-01 12:00] VITALS: BP 151/89
[2018-12-01] MEDS ORDERED: VANCOMYCIN 1.75 GM in IV NORMAL SALINE 500ML BAG 500 ML IV ONE (12:00)
[2018-12-01] MEDS: MORPHINE SULFATE 4 MG/ML VIAL. IV PRN ×2 (12:52→17:13)
--- NOTE | 2018-12-01 12:59 | PDOC2 ---
CONSULT Date of Consult Date of Consult DATE: 12/01/18 TIME: 12:56 Reason for Consult Reason for Consult: Diabetes management Referring Physician Referring Physician: Dr. Prabhakar Identification/Chief Complaint Chief Complaint High blood sugars Source Source: Caregiver, Chart review, Patient History of Present Illness Reason for Visit: 43-year-old female diabetes with unknown hemoglobin A1c maintained on OHA at home, self-pay but claims follow with the PCP, had an elective pinky toe amputation left foot, by vascular surgery-blood sugars are running 300s. Hence consulted to us for diabetes management. She is eating and otherwise not complaining of anything has a current wound VAC on that postop site with ID on board. Again unknown hemoglobin A1c never been on insulin. We'll start some long-acting insulin and continue home glyburide. I held off any mealtime for now. Add sliding scale insulin high-dose and check hemoglobin A1c Thanks for consulting we will follow along with you Past Medical History Cardiovascular: Hyperlipidemia Renal/: No pertinent hx Endocrine: Diabetes Past Surgical History Past Surgical History: Other (left pinky toe amputation today 12/01/18) Family History Family History: Diabetes Social History No ALCOHOL: none Drugs: None Lives: with Family Domestic Violence: Neg Current Medications Current Medications Current Medications Cefazolin Sodium/ Dextrose 50 ml @ 100 mls/hr 1X PREOP PRN IV PRIOR TO PROCEDURE Last administered on 12/01/18at 10:40; Start 12/01/18 at 06:00; Stop at 18:00 Propofol 20 ml @ As Directed STK-MED ONCE IV ; Start 12/01/18 at 09:49; Stop 10/07 at 09:50; Status DC Lidocaine HCl (Lidocaine Pf 2% Vial) 5 ml STK-MED ONCE .ROUTE ; Start 12/01/18 at 09:49; Stop 12/01/18 at 09:50; Status DC Cefazolin Sodium 1 gm/Sodium Chloride 500 ml @ 500 mls/hr 1X ONCE IRR Last administered on 12/01/18at 11:03; Start 12/01/18 at 10:30; Stop 12/01/18 at 11:29 ; Status DC Lidocaine HCl 20 ml STK-MED ONCE .ROUTE ; Start 12/01/18 at 10:16; Stop at 10:17; Status DC Ringer's Solution 1,000 ml @ 100 mls/hr Q10H IV Last administered on at 10:20; Start 12/01/18 at 10:20 Dexamethasone Sodium Phosphate (Decadron) 20 mg STK-MED ONCE .ROUTE ; Start 10/07 at 10:36; Stop 12/01/18 at 10:37; Status DC Sevoflurane (Ultane) 15 ml STK-MED ONCE IH ; Start 12/01/18 at 10:36; Stop 12/01 at 10:37; Status DC Ondansetron HCl (Zofran) 4 mg STK-MED ONCE .ROUTE ; Start 12/01/18 at 10:37; Stop 12/01/18 at 10:38; Status DC Ephedrine Sulfate (Akovaz) 50 mg STK-MED ONCE .ROUTE ; Start 12/01/18 at 10:48; Stop 12/01/18 at 10:49; Status DC Amlodipine Besylate (Norvasc) 5 mg DAILY PO ; Start 12/02/18 at 09:00 Clopidogrel Bisulfate (Plavix) 75 mg DAILYWBKFT PO ; Start 12/02/18 at 08:00 Glimepiride (Amaryl) 2 mg DAILY PO ; Start 12/02/18 at 09:00 Oxycodone/ Acetaminophen (Percocet 5/325) 1 tab PRN Q4HRS PRN PO MODERATE PAIN , SEVERE PAIN; Start 12/01/18 at 11:15 Sodium Chloride 1,000 ml @ 100 mls/hr Q10H IV Last administered on 12/01/18at 12:53; Start 12/01/18 at 11:06; Stop 12/01/18 at 21:05 Ondansetron HCl (Zofran) 4 mg PRN Q6HRS PRN IV NAUSEA/VOMITING; Start 12/01/18 at 11:15 Morphine Sulfate (Morphine Sulfate) 2 mg PRN Q1HR PRN IV PAIN Last administered on 12/01/18at 12:52; Start 12/01/18 at 11:15 Oxycodone/ Acetaminophen (Percocet 5/325) 2 tab PRN Q4HRS PRN PO MODERATE PAIN , SEVERE PAIN; Start 12/01/18 at 11:15 Senna/Docusate Sodium (Senna Plus) 1 tab BID PRN PO constipation; Start at 11:15 Piperacillin Sod/ Tazobactam Sod (Zosyn Per Pharmacy) 1 each PRN DAILY PRN MC SEE COMMENTS; Start 12/01/18 at 11:15 Vancomycin HCl (Vanco Per Pharmacy) 1 each PRN DAILY PRN MC SEE COMMENTS; Start 12/01/18 at 11:15 Insulin Human Lispro (HumaLOG VIAL) 6 unit 1X ONCE SQ Last administered on 10/07at 11:21; Start 12/01/18 at 11:15; Stop 12/01/18 at 11:17; Status DC Vancomycin HCl 1.75 gm/Sodium Chloride 500 ml @ 250 mls/hr 1X ONCE IV ; Start 12/01/18 at 12:00; Stop 12/01/18 at 13:59 Piperacillin Sod/ Tazobactam Sod 3.375 gm/Sodium Chloride 50 ml @ 100 mls/hr Q6H IV ; Start 12/01/18 at 13:00 Insulin Glargine (Lantus) 12 units QHS SQ ; Start 12/01/18 at 21:00; Status UNV Insulin Human Lispro (HumaLOG) 0-9 UNITS TIDWMEALS SQ ; Start 12/01/18 at 17:00 ; Status UNV Dextrose (Dextrose 50%-Water Syringe) 12.5 gm PRN Q15MIN PRN IV SEE COMMENTS; Start 12/01/18 at 13:00; Status UNV Insulin Human Lispro (HumaLOG VIAL) 10 unit 1X ONCE SQ ; Start 12/01/18 at 13: 00; Stop 12/01/18 at 13:01; Status UNV Active Scripts Active Amlodipine Besylate 5 Mg Tablet 5 Mg PO DAILY 30 Days Clopidogrel (Clopidogrel Bisulfate) 75 Mg Tablet 75 Mg PO DAILYWBKFT 30 Days Oxycodone-Acetaminophen 5-325 (Oxycodone Hcl/Acetaminophen) 1 Each Tablet 1-2 Tab PO PRN Q4HRS PRN Glimepiride 2 Mg Tablet 2 Mg PO DAILY Allergies Allergies: Coded Allergies: No Known Drug Allergies (Unverified , 11/30/18) ROS Review of System A 14 point ROS was completed with the following noted as positive: Other systems reviewed and negative. \CONSTITUTIONAL: No fever or chills EYES: No recent changes SKIN: No rash or itching CARDIOVASCULAR: No chest pain, syncope, palpitations, or edema RESPIRATORY: No SOB or cough GASTROINTESTINAL: No nausea, vomiting or abdominal pain NEUROLOGICAL: No headaches or weakness ENDOCRINE: No cold or heat intolerance GENITOURINARY: No urgency or frequency of urination MUSCULOSKELETAL: No back pain or joint pain LYMPHATICS: No enlarged lymph nodes PSYCHIATRIC: No anxiety or depression Physical Exam General: Alert, Oriented X3, Cooperative, No acute distress HEENT: PERRLA, Mucous membr. moist/pink Lungs: Clear to auscultation, Normal air movement Heart: Regular rate, Normal S1, Normal S2, No murmurs Abdomen: Normal bowel sounds, Soft Extremities: No clubbing, No cyanosis, No edema, Normal pulses, Other (left pinky toe amputated with a dry dressing and a wound VAC in place) Neuro: Normal gait, Normal speech, Normal tone, Sensation intact, Reflexes 2+ Psych/Mental Status: Mental status NL, Mood NL MUSCULOSKELETAL: No joint tenderness, No deformity Vitals VITALS Vital Signs Date Time Temp Pulse Resp B/P (MAP) Pulse Ox O2 Delivery O2 Flow Rate FiO2 12/01/18 12:52 18 100 Room Air 12/01/18 12:00 97.9 102 151/89 (109) 97.9 12/01/18 11:01 8 Labs Labs Laboratory Tests Test 12/01/18 09:39 12/01/18 10:10 12/01/18 10:24 12/01/18 11:09 Urine Test Negative (NEG) White Blood Count 8.3 x10^3/uL (4.0-11.0) Red Blood Count 4.29 x10^6/uL (3.50-5.40) Hemoglobin 10.9 g/dL (12.0-15.5) Hematocrit 33.7 % (36.0-47.0) Mean Corpuscular Volume 79 fL (79-100) Mean Corpuscular Hemoglobin 25 pg (25-35) Mean Corpuscular Hemoglobin Concent 32 g/dL (31-37) Red Cell Distribution Width 16.5 % (11.5-14.5) Platelet Count 236 x10^3/uL (140-400) Neutrophils (%) (Auto) 68 % (31-73) Lymphocytes (%) (Auto) 22 % (24-48) Monocytes (%) (Auto) 8 % (0-9) Eosinophils (%) (Auto) 2 % (0-3) Basophils (%) (Auto) 1 % (0-3) Neutrophils # (Auto) 5.6 x10^3uL (1.8-7.7) Lymphocytes # (Auto) 1.8 x10^3/uL (1.0-4.8) Monocytes # (Auto) 0.6 x10^3/uL (0.0-1.1) Eosinophils # (Auto) 0.2 x10^3/uL (0.0-0.7) Basophils # (Auto) 0.1 x10^3/uL (0.0-0.2) Sodium Level 136 mmol/L (136-145) Potassium Level 4.5 mmol/L (3.5-5.1) Chloride Level 99 mmol/L (98-107) Carbon Dioxide Level 29 mmol/L (21-32) Anion Gap 8 (6-14) Blood Urea Nitrogen 16 mg/dL (7-20) Creatinine 0.8 mg/dL (0.6-1.0) Estimated GFR (Cockcroft-Gault) 94.3 Glucose Level 335 mg/dL (70-99) Calcium Level 9.3 mg/dL (8.5-10.1) Glucose (Fingerstick) 294 mg/dL (70-99) 337 mg/dL (70-99) Laboratory Tests Test 12/01/18 09:39 12/01/18 10:10 12/01/18 10:24 12/01/18 11:09 Urine Test Negative (NEG) White Blood Count 8.3 x10^3/uL (4.0-11.0) Red Blood Count 4.29 x10^6/uL (3.50-5.40) Hemoglobin 10.9 g/dL (12.0-15.5) Hematocrit 33.7 % (36.0-47.0) Mean Corpuscular Volume 79 fL (79-100) Mean Corpuscular Hemoglobin 25 pg (25-35) Mean Corpuscular Hemoglobin Concent 32 g/dL (31-37) Red Cell Distribution Width 16.5 % (11.5-14.5) Platelet Count 236 x10^3/uL (140-400) Neutrophils (%) (Auto) 68 % (31-73) Lymphocytes (%) (Auto) 22 % (24-48) Monocytes (%) (Auto) 8 % (0-9) Eosinophils (%) (Auto) 2 % (0-3) Basophils (%) (Auto) 1 % (0-3) Neutrophils # (Auto) 5.6 x10^3uL (1.8-7.7) Lymphocytes # (Auto) 1.8 x10^3/uL (1.0-4.8) Monocytes # (Auto) 0.6 x10^3/uL (0.0-1.1) Eosinophils # (Auto) 0.2 x10^3/uL (0.0-0.7) Basophils # (Auto) 0.1 x10^3/uL (0.0-0.2) Sodium Level 136 mmol/L (136-145) Potassium Level 4.5 mmol/L (3.5-5.1) Chloride Level 99 mmol/L (98-107) Carbon Dioxide Level 29 mmol/L (21-32) Anion Gap 8 (6-14) Blood Urea Nitrogen 16 mg/dL (7-20) Creatinine 0.8 mg/dL (0.6-1.0) Estimated GFR (Cockcroft-Gault) 94.3 Glucose Level 335 mg/dL (70-99) Calcium Level 9.3 mg/dL (8.5-10.1) Glucose (Fingerstick) 294 mg/dL (70-99) 337 mg/dL (70-99) Assessment/Plan Assessment/Plan Status post left fifth toe amputated for PVD versus diabetes - vascular surgery and ID on board, indwelling wound VAC/wound care Diabetes type 2? Control-check hemoglobin A1c - STart Lantus 12 units daily at bedtime + scale high-dose, continue home glyburide History of diabetes and SIRS S, possibly sepsis with organ obstruction Plan as above We will follow the sugars along with you thanks for consulting MEJIA GOODEN MD Dec 01, 2018 12:59
[2018-12-01] MEDS ORDERED: DEXTROSE 50% 25 GM / 50ML DISP.SYRIN. IV PRN (13:00)
[2018-12-01] MEDS ORDERED: INSULIN LISPRO 300 UNITS/3 ML INSULN.PEN. SQ ONE (13:00)
[2018-12-01] MEDS: PIPERACILLIN/TAZOBACTAM 3.375 GM in IV NORMAL SALINE 50ML 50 ML IV SCH ×2 (13:10→20:04)
[2018-12-01] MEDS: INSULIN LISPRO 300 UNITS/3 ML INSULN.PEN. SQ SCH ×2 (13:12→17:00)
--- NOTE | 2018-12-01 13:51 | PDOC ---
Infectious Disease Note Subjective: Subjective pt seen and examined ROS: ROS Negative except for above. Vital Signs: Vital Signs Vital Signs Date Time Temp Pulse Resp B/P (MAP) Pulse Ox O2 Delivery O2 Flow Rate FiO2 12/01/18 12:52 18 100 Room Air 12/01/18 12:00 97.9 102 151/89 (109) 97.9 12/01/18 11:01 8 Medications: Inpatient Meds: Current Medications Medications (Trade) Dose Ordered Sig/Jono Start Time Stop Time Status Last Admin Dose Admin Amlodipine Besylate (Norvasc) 5 mg DAILY 12/02/18 09:00 Cefazolin Sodium 1 gm/Sodium Chloride 500 ml @ 500 mls/hr 1X ONCE 12/01/18 10:30 12/01/18 11:29 DC 12/01/18 11:03 Cefazolin Sodium/ Dextrose 50 ml @ 100 mls/hr 1X PREOP PRN 12/01/18 06:00 12/01/18 18:00 12/01/18 10:40 100 MLS/HR Clopidogrel Bisulfate (Plavix) 75 mg DAILYWBKFT 12/02/18 08:00 Dexamethasone Sodium Phosphate (Decadron) 20 mg STK-MED ONCE 12/01/18 10:36 12/01/18 10:37 DC Dextrose (Dextrose 50%-Water Syringe) 12.5 gm PRN Q15MIN PRN 12/01/18 13:00 Ephedrine Sulfate (Akovaz) 50 mg STK-MED ONCE 12/01/18 10:48 12/01/18 10:49 DC Glimepiride (Amaryl) 2 mg DAILY 12/02/18 09:00 Insulin Glargine (Lantus) 12 units QHS 12/01/18 21:00 Insulin Human Lispro (HumaLOG VIAL) 6 unit 1X ONCE 12/01/18 11:15 12/01/18 11:17 DC 12/01/18 11:21 6 UNIT Insulin Human Lispro (HumaLOG) 10 units 1X ONCE 12/01/18 13:00 12/01/18 13:01 DC 12/01/18 13:14 10 UNITS Lidocaine HCl 20 ml STK-MED ONCE 12/01/18 10:16 12/01/18 10:17 DC Lidocaine HCl (Lidocaine Pf 2% Vial) 5 ml STK-MED ONCE 12/01/18 09:49 12/01/18 09:50 DC Morphine Sulfate (Morphine Sulfate) 2 mg PRN Q1HR PRN 12/01/18 11:15 12/01/18 12:52 2 MG Ondansetron HCl (Zofran) 4 mg PRN Q6HRS PRN 12/01/18 11:15 Oxycodone/ Acetaminophen (Percocet 5/325) 2 tab PRN Q4HRS PRN 12/01/18 11:15 Piperacillin Sod/ Tazobactam Sod (Zosyn Per Pharmacy) 1 each PRN DAILY PRN 12/01/18 11:15 Piperacillin Sod/ Tazobactam Sod 3.375 gm/Sodium Chloride 50 ml @ 100 mls/hr Q6H 12/01/18 13:00 12/01/18 13:10 100 MLS/HR Propofol 20 ml @ As Directed STK-MED ONCE 12/01/18 09:49 12/01/18 09:50 DC Ringer's Solution 1,000 ml @ 100 mls/hr Q10H 12/01/18 10:20 12/01/18 10:20 100 MLS/HR Senna/Docusate Sodium (Senna Plus) 1 tab BID PRN 12/01/18 11:15 Sevoflurane (Ultane) 15 ml STK-MED ONCE 12/01/18 10:36 12/01/18 10:37 DC Sodium Chloride 1,000 ml @ 100 mls/hr Q10H 12/01/18 11:06 12/01/18 21:05 12/01/18 12:53 100 MLS/HR Vancomycin HCl (Vanco Per Pharmacy) 1 each PRN DAILY PRN 12/01/18 11:15 Vancomycin HCl 1.75 gm/Sodium Chloride 500 ml @ 250 mls/hr 1X ONCE 12/01/18 12:00 12/01/18 13:59 Labs: Lab Laboratory Tests Test 12/01/18 09:39 12/01/18 10:10 12/01/18 10:24 12/01/18 11:09 Urine Test Negative (NEG) White Blood Count 8.3 x10^3/uL (4.0-11.0) Red Blood Count 4.29 x10^6/uL (3.50-5.40) Hemoglobin 10.9 g/dL (12.0-15.5) Hematocrit 33.7 % (36.0-47.0) Mean Corpuscular Volume 79 fL (79-100) Mean Corpuscular Hemoglobin 25 pg (25-35) Mean Corpuscular Hemoglobin Concent 32 g/dL (31-37) Red Cell Distribution Width 16.5 % (11.5-14.5) Platelet Count 236 x10^3/uL (140-400) Neutrophils (%) (Auto) 68 % (31-73) Lymphocytes (%) (Auto) 22 % (24-48) Monocytes (%) (Auto) 8 % (0-9) Eosinophils (%) (Auto) 2 % (0-3) Basophils (%) (Auto) 1 % (0-3) Neutrophils # (Auto) 5.6 x10^3uL (1.8-7.7) Lymphocytes # (Auto) 1.8 x10^3/uL (1.0-4.8) Monocytes # (Auto) 0.6 x10^3/uL (0.0-1.1) Eosinophils # (Auto) 0.2 x10^3/uL (0.0-0.7) Basophils # (Auto) 0.1 x10^3/uL (0.0-0.2) Sodium Level 136 mmol/L (136-145) Potassium Level 4.5 mmol/L (3.5-5.1) Chloride Level 99 mmol/L (98-107) Carbon Dioxide Level 29 mmol/L (21-32) Anion Gap 8 (6-14) Blood Urea Nitrogen 16 mg/dL (7-20) Creatinine 0.8 mg/dL (0.6-1.0) Estimated GFR (Cockcroft-Gault) 94.3 Glucose Level 335 mg/dL (70-99) Calcium Level 9.3 mg/dL (8.5-10.1) Glucose (Fingerstick) 294 mg/dL (70-99) 337 mg/dL (70-99) Objective: Assessment: Nonhealing Lt 1st toe amputation site s/p I and D 12/01 cult done DM poorly controlled Noncomplaince Plan: Plan of Care cont zosyn s/p one dose of IV Vanc, start zyvox tomorrow Monitor renal func closely f/u c/s wound/vac care monitor labs closely Thank you [id number] CAT AKINS MD Dec 01, 2018 13:51
[2018-12-01 14:48] VITALS: BP 154/80
[2018-12-01 19:00] VITALS: BP 116/70
[2018-12-01] MEDS ORDERED: INSULIN GLARGINE 300 UNITS/3 ML INSULN.PEN. SQ SCH (21:00)
--- NOTE | 2018-12-01 21:00 | CONS ---
DATE OF CONSULTATION: 12/01/2018 REFERRING PHYSICIAN: Dr. Prabhaakr. REASON FOR CONSULTATION: Antibiotic management. HISTORY OF PRESENT ILLNESS: A 43-year-old female with history of diabetes, left foot diabetic ulcer with osteomyelitis, status post amputation in August 2018 with cultures positive for Morganella treated with IV antibiotics, did well postoperatively, tolerated IV antibiotics well. Wound was healing, was seen by physician yesterday and was found to have issues with nonhealing left first toe amputation site. She underwent excisional debridements of subcutaneous tissue, bone and tendon, left first great toe today by Dr. Prabhakar. She denies any fever, chills, nausea, vomiting, diarrhea or abdominal pain. Blood sugar is not under good control. The patient is on cefazolin. Received cefazolin preoperatively, also received vancomycin and Zosyn, and ID consult has been requested for antibiotic management. The patient has wound VAC in place. She states the pain is under control. Denies any headache, sore throat, runny nose, cough, shortness of breath, rash, nausea, vomiting, diarrhea, abdominal pain, symptoms or other nonhealing skin problems. PAST MEDICAL HISTORY: Diabetes, history of perirectal abscess in January 2018, in the past, left great toe diabetic infection with osteomyelitis, status post amputation in August 2018. SOCIAL HISTORY: Denies smoking, ETOH or illicit drug use. Lives with her parents. Father at bedside. ALLERGIES: No known drug allergies. MEDICATIONS: Current medications, IV Zosyn, one-time vancomycin. Other medications reviewed in medication list. REVIEW OF SYSTEMS: Negative except for above in HPI. PHYSICAL EXAMINATION: VITAL SIGNS: Temperature 97.9, pulse 102, respiratory rate 18, blood pressure 151/89, oxygen saturation 100% on room air. HEENT: Normocephalic, atraumatic, anicteric. No thrush. NECK: Supple. No JVD. LUNGS: Clear bilaterally. HEART: S1, S2 regular. ABDOMEN: Soft, nontender, nondistended. EXTREMITIES: Left lower extremity dressing intact. Wound VAC intact, not taken down. Right lower extremity unremarkable. NEUROLOGIC: Alert and oriented x 3. Grossly nonfocal. DERMATOLOGIC: Warm and dry. No generalized rash. Cyst over the left upper extremity, keloid over the left upper extremity. LABORATORY DATA: WBC 8.3, hemoglobin 10.9, hematocrit 33.7, platelets 236. Sodium 136, potassium 4.5, chloride 99, bicarbonate 29, BUN 16, creatinine 0.8, glucose 335, calcium 9.3. Urine test negative. Wound specimen on 09/02/2018, Morganella morganii. IMAGING: None. IMPRESSION: 1. Nonhealing left first toe amputation site, status post excisional debridement of subcutaneous tissue, bone and tendon of left first great toe. Cultures done, pending at this time. Wound VAC in place. Previous open ray amputation on 09/04/2018 with cultures positive for Morganella, treated. 2. Diabetes. 3. Hyperlipidemia. 4. Poorly controlled diabetes. 5. History of noncompliance. RECOMMENDATIONS: 1. Continue empiric Zosyn, has been dosed with vancomycin x 1. 2. Follow up cultures and susceptibility results. 3. Continue supportive care. 4. Follow up cultures and lab in a.m. 5. Optimal diabetes control. Thank you, Dr. Prabhakar, for giving me an opportunity to participate in this patient's care. If you have any questions, do not hesitate to contact me. CAT AKINS MD DR: MIGUEL/tal JOB#: [id number] / [id number] TONNY
[2018-12-01 23:00] VITALS: BP 119/65
[2018-12-01 23:13] LABS: HEMOGLOBIN A1C 12.3 % (4.8-5.6)
[2018-12-02] MEDS: PIPERACILLIN/TAZOBACTAM 3.375 GM in IV NORMAL SALINE 50ML 50 ML IV SCH ×2 (01:21→06:24)
[2018-12-02 02:50] VITALS: BP 133/69
[2018-12-02 07:00] VITALS: BP 124/81
[2018-12-02] MEDS: amLODIPine BESYLATE 5 MG TABLET PO SCH (08:46)
[2018-12-02] MEDS: CLOPIDOGREL BISULFATE 75 MG TABLET PO SCH (08:46)
[2018-12-02] MEDS: INSULIN LISPRO 300 UNITS/3 ML INSULN.PEN. SQ SCH ×5 (08:52→17:30)
[2018-12-02] MEDS ORDERED: GLIMEPIRIDE 2 MG TABLET. PO SCH (09:00)
--- NOTE | 2018-12-02 10:30 | PDOC ---
PROGRESS NOTES Chief Complaint Chief Complaint Status post left fifth toe amputated for PVD versus diabetes - vascular surgery and ID on board, indwelling wound VAC/wound care Diabetes type 2 uncontrolled - hgba1c 12 History of Present Illness History of Present Illness Primary service is vascular surgery-Dr. Prabhakar Patient is self-pay Wound VAC in place left pinky toe Blood sugars are running high Hemoglobin A1c is 12 Patient was taken off of metformin by PCP before for unclear reasons Pt has no other complaints Claims she is starting a vegan diet at home to help BS Plan: increase Lantus from 12 units 20 units daily at bedtime DC glyburide and start mealtime lispro 10units 3 times a day with meals Start metformin 500 twice a day-creatinine okay, she is nonalcoholic-no reports of severe diarrhea from metformin in the past Wound care per wound care and basilar surgery Wound VAC-social work consult self-pay need for wound VAC? Vitals Vitals Vital Signs Date Time Temp Pulse Resp B/P (MAP) Pulse Ox O2 Delivery O2 Flow Rate FiO2 12/02/18 08:46 88 124/81 12/02/18 07:00 98.6 18 100 Room Air 98.6 12/01/18 13:22 8.0 Physical Exam General: Alert, Oriented X3, Cooperative, No acute distress Heart: Regular rate, Normal S1, Normal S2, No murmurs Lungs: Clear, Other Abdomen: Normal bowel sounds, Soft Extremities: No clubbing, No cyanosis, No edema, Normal pulses, Other (left pinky toe amputated with a dry dressing and a wound VAC in place) Labs LABS Laboratory Tests Test 12/01/18 11:09 12/01/18 12:03 12/01/18 17:14 12/01/18 21:15 Glucose (Fingerstick) 337 mg/dL (70-99) 318 mg/dL (70-99) 105 mg/dL (70-99) 248 mg/dL (70-99) Test 12/02/18 07:29 Glucose (Fingerstick) 253 mg/dL (70-99) Review of Systems Review of Systems A 14 point ROS was completed with the following noted as positive: Other systems reviewed and negative. \CONSTITUTIONAL: No fever or chills EYES: No recent changes SKIN: No rash or itching CARDIOVASCULAR: No chest pain, syncope, palpitations, or edema RESPIRATORY: No SOB or cough GASTROINTESTINAL: No nausea, vomiting or abdominal pain NEUROLOGICAL: No headaches or weakness ENDOCRINE: No cold or heat intolerance GENITOURINARY: No urgency or frequency of urination MUSCULOSKELETAL: No back pain or joint pain LYMPHATICS: No enlarged lymph nodes PSYCHIATRIC: No anxiety or depression Comment Review of Relevant I have reviewed the following items pat (where applicable) has been applied. Labs Laboratory Tests Test 12/01/18 09:39 12/01/18 10:10 12/01/18 10:24 12/01/18 11:09 Urine Test Negative (NEG) White Blood Count 8.3 x10^3/uL (4.0-11.0) Red Blood Count 4.29 x10^6/uL (3.50-5.40) Hemoglobin 10.9 g/dL (12.0-15.5) Hematocrit 33.7 % (36.0-47.0) Mean Corpuscular Volume 79 fL (79-100) Mean Corpuscular Hemoglobin 25 pg (25-35) Mean Corpuscular Hemoglobin Concent 32 g/dL (31-37) Red Cell Distribution Width 16.5 % (11.5-14.5) Platelet Count 236 x10^3/uL (140-400) Neutrophils (%) (Auto) 68 % (31-73) Lymphocytes (%) (Auto) 22 % (24-48) Monocytes (%) (Auto) 8 % (0-9) Eosinophils (%) (Auto) 2 % (0-3) Basophils (%) (Auto) 1 % (0-3) Neutrophils # (Auto) 5.6 x10^3uL (1.8-7.7) Lymphocytes # (Auto) 1.8 x10^3/uL (1.0-4.8) Monocytes # (Auto) 0.6 x10^3/uL (0.0-1.1) Eosinophils # (Auto) 0.2 x10^3/uL (0.0-0.7) Basophils # (Auto) 0.1 x10^3/uL (0.0-0.2) Sodium Level 136 mmol/L (136-145) Potassium Level 4.5 mmol/L (3.5-5.1) Chloride Level 99 mmol/L (98-107) Carbon Dioxide Level 29 mmol/L (21-32) Anion Gap 8 (6-14) Blood Urea Nitrogen 16 mg/dL (7-20) Creatinine 0.8 mg/dL (0.6-1.0) Estimated GFR (Cockcroft-Gault) 94.3 Glucose Level 335 mg/dL (70-99) Hemoglobin A1c 12.3 % (4.8-5.6) Calcium Level 9.3 mg/dL (8.5-10.1) Glucose (Fingerstick) 294 mg/dL (70-99) 337 mg/dL (70-99) Test 12/01/18 12:03 12/01/18 17:14 12/01/18 21:15 12/02/18 07:29 Glucose (Fingerstick) 318 mg/dL (70-99) 105 mg/dL (70-99) 248 mg/dL (70-99) 253 mg/dL (70-99) Laboratory Tests Test 12/01/18 11:09 12/01/18 12:03 12/01/18 17:14 12/01/18 21:15 Glucose (Fingerstick) 337 mg/dL (70-99) 318 mg/dL (70-99) 105 mg/dL (70-99) 248 mg/dL (70-99) Test 12/02/18 07:29 Glucose (Fingerstick) 253 mg/dL (70-99) Medications Current Medications Cefazolin Sodium/ Dextrose 50 ml @ 100 mls/hr 1X PREOP PRN IV PRIOR TO PROCEDURE Last administered on 12/01/18at 10:40; Start 12/01/18 at 06:00; Stop at 18:00; Status DC Propofol 20 ml @ As Directed STK-MED ONCE IV ; Start 12/01/18 at 09:49; Stop 10/07 at 09:50; Status DC Lidocaine HCl (Lidocaine Pf 2% Vial) 5 ml STK-MED ONCE .ROUTE ; Start 12/01/18 at 09:49; Stop 12/01/18 at 09:50; Status DC Cefazolin Sodium 1 gm/Sodium Chloride 500 ml @ 500 mls/hr 1X ONCE IRR Last administered on 12/01/18at 11:03; Start 12/01/18 at 10:30; Stop 12/01/18 at 11:29 ; Status DC Lidocaine HCl 20 ml STK-MED ONCE .ROUTE ; Start 12/01/18 at 10:16; Stop at 10:17; Status DC Ringer's Solution 1,000 ml @ 100 mls/hr Q10H IV Last administered on at 10:20; Start 12/01/18 at 10:20; Stop 12/01/18 at 20:11; Status DC Dexamethasone Sodium Phosphate (Decadron) 20 mg STK-MED ONCE .ROUTE ; Start 10/07 at 10:36; Stop 12/01/18 at 10:37; Status DC Sevoflurane (Ultane) 15 ml STK-MED ONCE IH ; Start 12/01/18 at 10:36; Stop 12/01 at 10:37; Status DC Ondansetron HCl (Zofran) 4 mg STK-MED ONCE .ROUTE ; Start 12/01/18 at 10:37; Stop 12/01/18 at 10:38; Status DC Ephedrine Sulfate (Akovaz) 50 mg STK-MED ONCE .ROUTE ; Start 12/01/18 at 10:48; Stop 12/01/18 at 10:49; Status DC Amlodipine Besylate (Norvasc) 5 mg DAILY PO Last administered on 12/02/18at 08: 46; Start 12/02/18 at 09:00 Clopidogrel Bisulfate (Plavix) 75 mg DAILYWBKFT PO Last administered on at 08:46; Start 12/02/18 at 08:00 Glimepiride (Amaryl) 2 mg DAILY PO Last administered on 12/02/18at 08:46; Start 12/02/18 at 09:00; Stop 12/02/18 at 09:00; Status DC Oxycodone/ Acetaminophen (Percocet 5/325) 1 tab PRN Q4HRS PRN PO MODERATE PAIN , SEVERE PAIN; Start 12/01/18 at 11:15 Sodium Chloride 1,000 ml @ 100 mls/hr Q10H IV Last administered on 12/01/18at 12:53; Start 12/01/18 at 11:06; Stop 12/01/18 at 21:05; Status DC Ondansetron HCl (Zofran) 4 mg PRN Q6HRS PRN IV NAUSEA/VOMITING; Start 12/01/18 at 11:15 Morphine Sulfate (Morphine Sulfate) 2 mg PRN Q1HR PRN IV PAIN Last administered on 12/01/18at 17:13; Start 12/01/18 at 11:15 Oxycodone/ Acetaminophen (Percocet 5/325) 2 tab PRN Q4HRS PRN PO MODERATE PAIN , SEVERE PAIN; Start 12/01/18 at 11:15 Senna/Docusate Sodium (Senna Plus) 1 tab BID PRN PO constipation; Start at 11:15 Piperacillin Sod/ Tazobactam Sod (Zosyn Per Pharmacy) 1 each PRN DAILY PRN MC SEE COMMENTS; Start 12/01/18 at 11:15 Vancomycin HCl (Vanco Per Pharmacy) 1 each PRN DAILY PRN MC SEE COMMENTS; Start 12/01/18 at 11:15; Status Cancel Insulin Human Lispro (HumaLOG VIAL) 6 unit 1X ONCE SQ Last administered on 10/07at 11:21; Start 12/01/18 at 11:15; Stop 12/01/18 at 11:17; Status DC Vancomycin HCl 1.75 gm/Sodium Chloride 500 ml @ 250 mls/hr 1X ONCE IV Last administered on 12/01/18at 14:09; Start 12/01/18 at 12:00; Stop 12/01/18 at 13:59 ; Status DC Piperacillin Sod/ Tazobactam Sod 3.375 gm/Sodium Chloride 50 ml @ 100 mls/hr Q6H IV Last administered on 12/02/18at 06:24; Start 12/01/18 at 13:00 Insulin Glargine (Lantus) 12 units QHS SQ Last administered on 12/01/18at 21:20 ; Start 12/01/18 at 21:00; Stop 12/02/18 at 08:54; Status DC Insulin Human Lispro (HumaLOG) 0-9 UNITS TIDWMEALS SQ Last administered on 12/02at 08:52; Start 12/01/18 at 13:00 Dextrose (Dextrose 50%-Water Syringe) 12.5 gm PRN Q15MIN PRN IV SEE COMMENTS; Start 12/01/18 at 13:00 Insulin Human Lispro (HumaLOG) 10 units 1X ONCE SQ Last administered on at 13:14; Start 12/01/18 at 13:00; Stop 12/01/18 at 13:01; Status DC Linezolid/Dextrose 300 ml @ 300 mls/hr Q12HR IV Last administered on at 08:55; Start 12/02/18 at 09:00 Insulin Glargine (Lantus) 20 units QHS SQ ; Start 12/02/18 at 21:00 Insulin Human Lispro (HumaLOG) 10 units TIDWMEALS SQ ; Start 12/02/18 at 12:00 Metformin HCl (Glucophage) 500 mg BIDWMEALS PO ; Start 12/02/18 at 17:00 Active Scripts Active Amlodipine Besylate 5 Mg Tablet 5 Mg PO DAILY 30 Days Clopidogrel (Clopidogrel Bisulfate) 75 Mg Tablet 75 Mg PO DAILYWBKFT 30 Days Oxycodone-Acetaminophen 5-325 (Oxycodone Hcl/Acetaminophen) 1 Each Tablet 1-2 Tab PO PRN Q4HRS PRN Glimepiride 2 Mg Tablet 2 Mg PO DAILY Vitals/I & O Vital Sign - Last 24 Hours 12/01/18 12/01/18 12/01/18 12/01/18 11:01 11:01 11:16 11:31 Temp 98.1 97.8 98.1 97.8 Pulse 96 96 91 Resp 18 18 18 B/P (MAP) 144/85 157/87 161/83 Pulse Ox 100 100 100 O2 Delivery Simple Mask Mask Room Air Room Air O2 Flow Rate 8 8 12/01/18 12/01/18 12/01/18 12/01/18 12:00 12:00 12:52 13:22 Temp 97.9 97.9 Pulse 102 Resp 18 B/P (MAP) 151/89 (109) Pulse Ox 100 100 O2 Delivery Mask Room Air O2 Flow Rate 8.0 8.0 12/01/18 12/01/18 12/01/18 12/01/18 14:48 17:13 17:43 19:00 Temp 97.8 97.7 97.8 97.7 Pulse 99 86 Resp 18 18 18 16 B/P (MAP) 154/80 (104) 116/70 (85) Pulse Ox 100 100 100 O2 Delivery Room Air Room Air Room Air 12/01/18 12/02/18 12/02/18 12/02/18 23:00 02:50 07:00 08:46 Temp 97.8 97.4 98.6 97.8 97.4 98.6 Pulse 90 78 88 88 Resp 17 16 18 B/P (MAP) 119/65 (83) 133/69 (90) 124/81 (95) 124/81 Pulse Ox 98 100 100 O2 Delivery Room Air Room Air Room Air Intake and Output 12/01/18 12/01/18 12/02/18 15:00 23:00 07:00 Intake Total 650 ml Output Total 305 ml 350 ml 400 ml Balance 345 ml -350 ml -400 ml MEJIA GOODEN MD Dec 02, 2018 10:30
--- NOTE | 2018-12-02 10:55 | PDOC ---
Infectious Disease Note Subjective: Subjective pt says feels ok postop pain is under control ROS: ROS Negative except for above. Vital Signs: Vital Signs Vital Signs Date Time Temp Pulse Resp B/P (MAP) Pulse Ox O2 Delivery O2 Flow Rate FiO2 12/02/18 08:46 88 124/81 12/02/18 07:00 98.6 18 100 Room Air 98.6 12/01/18 13:22 8.0 Physical Exam: PHYSICAL EXAM HEENT: Normocephalic, atraumatic, anicteric. No thrush. NECK: Supple. No JVD. LUNGS: Clear bilaterally. HEART: S1, S2 regular. ABDOMEN: Soft, nontender, nondistended. EXTREMITIES: Left lower extremity dressing intact. Wound VAC intact, not taken down. Right lower extremity unremarkable. NEUROLOGIC: Alert and oriented x 3. Grossly nonfocal. DERMATOLOGIC: Warm and dry. No generalized rash. Cyst over the left upper extremity, keloid over the left upper extremity. Medications: Inpatient Meds: Current Medications Medications (Trade) Dose Ordered Sig/Jono Start Time Stop Time Status Last Admin Dose Admin Amlodipine Besylate (Norvasc) 5 mg DAILY 12/02/18 09:00 12/02/18 08:46 5 MG Cefazolin Sodium 1 gm/Sodium Chloride 500 ml @ 500 mls/hr 1X ONCE 12/01/18 10:30 12/01/18 11:29 DC 12/01/18 11:03 Cefazolin Sodium/ Dextrose 50 ml @ 100 mls/hr 1X PREOP PRN 12/01/18 06:00 12/01/18 18:00 DC 12/01/18 10:40 100 MLS/HR Clopidogrel Bisulfate (Plavix) 75 mg DAILYWBKFT 12/02/18 08:00 12/02/18 08:46 75 MG Dexamethasone Sodium Phosphate (Decadron) 20 mg STK-MED ONCE 12/01/18 10:36 12/01/18 10:37 DC Dextrose (Dextrose 50%-Water Syringe) 12.5 gm PRN Q15MIN PRN 12/01/18 13:00 Ephedrine Sulfate (Akovaz) 50 mg STK-MED ONCE 12/01/18 10:48 12/01/18 10:49 DC Glimepiride (Amaryl) 2 mg DAILY 12/02/18 09:00 12/02/18 09:00 DC 12/02/18 08:46 2 MG Insulin Glargine (Lantus) 20 units QHS 12/02/18 21:00 Insulin Human Lispro (HumaLOG VIAL) 6 unit 1X ONCE 12/01/18 11:15 12/01/18 11:17 DC 12/01/18 11:21 6 UNIT Insulin Human Lispro (HumaLOG) 10 units TIDWMEALS 12/02/18 12:00 Lidocaine HCl 20 ml STK-MED ONCE 12/01/18 10:16 12/01/18 10:17 DC Lidocaine HCl (Lidocaine Pf 2% Vial) 5 ml STK-MED ONCE 12/01/18 09:49 12/01/18 09:50 DC Linezolid/Dextrose 300 ml @ 300 mls/hr Q12HR 12/02/18 09:00 12/02/18 08:55 300 MLS/HR Metformin HCl (Glucophage) 500 mg BIDWMEALS 12/02/18 17:00 Morphine Sulfate (Morphine Sulfate) 2 mg PRN Q1HR PRN 12/01/18 11:15 12/01/18 17:13 2 MG Ondansetron HCl (Zofran) 4 mg PRN Q6HRS PRN 12/01/18 11:15 Oxycodone/ Acetaminophen (Percocet 5/325) 2 tab PRN Q4HRS PRN 12/01/18 11:15 Piperacillin Sod/ Tazobactam Sod (Zosyn Per Pharmacy) 1 each PRN DAILY PRN 12/01/18 11:15 Piperacillin Sod/ Tazobactam Sod 3.375 gm/Sodium Chloride 50 ml @ 100 mls/hr Q6H 12/01/18 13:00 12/02/18 06:24 100 MLS/HR Propofol 20 ml @ As Directed STK-MED ONCE 12/01/18 09:49 12/01/18 09:50 DC Ringer's Solution 1,000 ml @ 100 mls/hr Q10H 12/01/18 10:20 12/01/18 20:11 DC 12/01/18 10:20 100 MLS/HR Senna/Docusate Sodium (Senna Plus) 1 tab BID PRN 12/01/18 11:15 Sevoflurane (Ultane) 15 ml STK-MED ONCE 12/01/18 10:36 12/01/18 10:37 DC Sodium Chloride 1,000 ml @ 100 mls/hr Q10H 12/01/18 11:06 12/01/18 21:05 DC 12/01/18 12:53 100 MLS/HR Vancomycin HCl (Vanco Per Pharmacy) 1 each PRN DAILY PRN 12/01/18 11:15 Cancel Vancomycin HCl 1.75 gm/Sodium Chloride 500 ml @ 250 mls/hr 1X ONCE 12/01/18 12:00 12/01/18 13:59 DC 12/01/18 14:09 250 MLS/HR Labs: Lab Laboratory Tests Test 12/01/18 11:09 12/01/18 12:03 12/01/18 17:14 12/01/18 21:15 Glucose (Fingerstick) 337 mg/dL (70-99) 318 mg/dL (70-99) 105 mg/dL (70-99) 248 mg/dL (70-99) Test 12/02/18 07:29 Glucose (Fingerstick) 253 mg/dL (70-99) Objective: Assessment: Nonhealing 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
[2018-12-02 11:00] VITALS: BP 124/77
--- NOTE | 2018-12-02 11:57 | PDOC ---
Provider Note Provider Note Vascular S: Patient seen and examined in room. No complaints. O: Awake and alert HRR Vac in place and functioning left foot. A/P: POD #1 Excisional debridement subcutaneous tissue, bone, and tendon left first toe. Continue wound vac therapy. Antibiotics per ID, cultures are pending. Continue to off-load foot with front off-loading 1/2 shoe. Elevate while in bed. DM-Hospitalist managing A1c 12, discussed with patient the need for tight glycemic control. TITI HUI APRN Dec 02, 2018 11:57
[2018-12-02] MEDS: MEROPENEM 500 MG in IV NORMAL SALINE 50ML 50 ML IV SCH ×3 (12:12→23:26)
--- NOTE | 2018-12-02 12:13 | NUR ---
SW following for discharge planning. Discussed with RN. Pt possibly needing a wound vac. Pt is self pay. SW will continue to follow.
[2018-12-02 15:00] VITALS: BP 112/59
[2018-12-02] MEDS: MORPHINE SULFATE 4 MG/ML VIAL. IV PRN ×2 (15:26→18:58)
[2018-12-02] MEDS: metFORMIN 500 MG TABLET PO SCH (17:26)
[2018-12-02 19:00] VITALS: BP 134/72
--- NOTE | 2018-12-02 19:39 | NUR ---
Per Pt and Dr. Lee, pt needs a different orthotic than the half shoe delivered today by [facility]. RN on dayshift 12/03 needs to clarify order details w/Dr. Lee and call [facility] to reorder.
[2018-12-02] MEDS: LINEZOLID 600 MG TABLET PO SCH (20:54)
[2018-12-02] MEDS: INSULIN GLARGINE 300 UNITS/3 ML INSULN.PEN. SQ SCH (21:12)
[2018-12-02 23:00] VITALS: BP 126/77
[2018-12-03 03:00] VITALS: BP 131/78
[2018-12-03] MEDS: MEROPENEM 500 MG in IV NORMAL SALINE 50ML 50 ML IV SCH ×4 (05:28→23:55)
[2018-12-03 06:18] LABS: BASO # 0.1 x10^3/uL (0.0-0.2); BASO % 1 % (0-3); EOS # 0.2 x10^3/uL (0.0-0.7); EOS % 2 % (0-3); HEMATOCRIT 34.7 % (36.0-47.0); HEMOGLOBIN 10.9 g/dL (12.0-15.5); LYMPH % 38 % (24-48); MEAN CORPUSCULAR HEMOGLOBIN 25 pg (25-35); MEAN CORPUSCULAR HGB CONC 31 g/dL (31-37); MEAN CORPUSCULAR VOLUME 78 fL (79-100); MONO # 0.6 x10^3/uL (0.0-1.1); MONO % 8 % (0-9); NEUT % 51 % (31-73); PLATELET COUNT 265 x10^3/uL (140-400); RED BLOOD COUNT 4.44 x10^6/uL (3.50-5.40); WHITE BLOOD COUNT 7.9 x10^3/uL (4.0-11.0)
[2018-12-03 06:21] LABS: CALCIUM 8.8 mg/dL (8.5-10.1); CREATININE 0.8 mg/dL (0.6-1.0); GFR 94.3; POTASSIUM 3.9 mmol/L (3.5-5.1)
[2018-12-03 07:00] VITALS: BP 137/86
[2018-12-03] MEDS: INSULIN LISPRO 300 UNITS/3 ML INSULN.PEN. SQ SCH ×6 (08:00→17:34)
[2018-12-03] MEDS: CLOPIDOGREL BISULFATE 75 MG TABLET PO SCH (08:08)
[2018-12-03] MEDS: LINEZOLID 600 MG TABLET PO SCH ×2 (08:09→20:30)
[2018-12-03] MEDS: metFORMIN 500 MG TABLET PO SCH ×2 (08:09→17:29)
[2018-12-03] MEDS: amLODIPine BESYLATE 5 MG TABLET PO SCH (08:09)
--- NOTE | 2018-12-03 08:24 | PDOC ---
Infectious Disease Note Subjective: Subjective pt says feels ok postop pain is under control ROS: ROS Negative except for above. Vital Signs: Vital Signs Vital Signs Date Time Temp Pulse Resp B/P (MAP) Pulse Ox O2 Delivery O2 Flow Rate FiO2 12/03/18 08:09 70 137/86 12/03/18 03:56 20 94 Room Air 12/03/18 03:00 98.6 8.0 98.6 Physical Exam: PHYSICAL EXAM HEENT: Normocephalic, atraumatic, anicteric. No thrush. NECK: Supple. No JVD. LUNGS: Clear bilaterally. HEART: S1, S2 regular. ABDOMEN: Soft, nontender, nondistended. EXTREMITIES: Left lower extremity dressing intact. Wound VAC intact, not taken down. Right lower extremity unremarkable. NEUROLOGIC: Alert and oriented x 3. Grossly nonfocal. DERMATOLOGIC: Warm and dry. No generalized rash. Cyst over the left upper extremity, keloid over the left upper extremity. Medications: Inpatient Meds: Current Medications Medications (Trade) Dose Ordered Sig/Jono Start Time Stop Time Status Last Admin Dose Admin Amlodipine Besylate (Norvasc) 5 mg DAILY 12/02/18 09:00 12/03/18 08:09 5 MG Cefazolin Sodium 1 gm/Sodium Chloride 500 ml @ 500 mls/hr 1X ONCE 12/01/18 10:30 12/01/18 11:29 DC 12/01/18 11:03 Cefazolin Sodium/ Dextrose 50 ml @ 100 mls/hr 1X PREOP PRN 12/01/18 06:00 12/01/18 18:00 DC 12/01/18 10:40 100 MLS/HR Clopidogrel Bisulfate (Plavix) 75 mg DAILYWBKFT 12/02/18 08:00 12/03/18 08:08 75 MG Dexamethasone Sodium Phosphate (Decadron) 20 mg STK-MED ONCE 12/01/18 10:36 12/01/18 10:37 DC Dextrose (Dextrose 50%-Water Syringe) 12.5 gm PRN Q15MIN PRN 12/01/18 13:00 Ephedrine Sulfate (Akovaz) 50 mg STK-MED ONCE 12/01/18 10:48 12/01/18 10:49 DC Glimepiride (Amaryl) 2 mg DAILY 12/02/18 09:00 12/02/18 09:00 DC 12/02/18 08:46 2 MG Insulin Glargine (Lantus) 20 units QHS 12/02/18 21:00 12/02/18 21:12 20 UNITS Insulin Human Lispro (HumaLOG VIAL) 6 unit 1X ONCE 12/01/18 11:15 12/01/18 11:17 DC 12/01/18 11:21 6 UNIT Insulin Human Lispro (HumaLOG) 10 units TIDWMEALS 12/02/18 12:00 12/02/18 17:30 10 UNITS Lidocaine HCl 20 ml STK-MED ONCE 12/01/18 10:16 12/01/18 10:17 DC Lidocaine HCl (Lidocaine Pf 2% Vial) 5 ml STK-MED ONCE 12/01/18 09:49 12/01/18 09:50 DC Linezolid (Zyvox) 600 mg BID 12/02/18 21:00 12/03/18 08:09 600 MG Linezolid/Dextrose 300 ml @ 300 mls/hr Q12HR 12/02/18 09:00 12/02/18 11:40 DC 12/02/18 08:55 300 MLS/HR Meropenem 500 mg/ Sodium Chloride 50 ml @ 100 mls/hr Q6HRS 12/02/18 12:00 12/03/18 05:28 100 MLS/HR Metformin HCl (Glucophage) 500 mg BIDWMEALS 12/02/18 17:00 12/03/18 08:09 500 MG Morphine Sulfate (Morphine Sulfate) 2 mg PRN Q1HR PRN 12/01/18 11:15 12/02/18 18:58 2 MG Ondansetron HCl (Zofran) 4 mg PRN Q6HRS PRN 12/01/18 11:15 Oxycodone/ Acetaminophen (Percocet 5/325) 2 tab PRN Q4HRS PRN 12/01/18 11:15 Piperacillin Sod/ Tazobactam Sod (Zosyn Per Pharmacy) 1 each PRN DAILY PRN 12/01/18 11:15 12/02/18 14:15 DC Piperacillin Sod/ Tazobactam Sod 3.375 gm/Sodium Chloride 50 ml @ 100 mls/hr Q6H 12/01/18 13:00 12/02/18 11:40 DC 12/02/18 06:24 100 MLS/HR Propofol 20 ml @ As Directed STK-MED ONCE 12/01/18 09:49 12/01/18 09:50 DC Ringer's Solution 1,000 ml @ 100 mls/hr Q10H 12/01/18 10:20 12/01/18 20:11 DC 12/01/18 10:20 100 MLS/HR Senna/Docusate Sodium (Senna Plus) 1 tab BID PRN 12/01/18 11:15 Sevoflurane (Ultane) 15 ml STK-MED ONCE 12/01/18 10:36 12/01/18 10:37 DC Sodium Chloride 1,000 ml @ 100 mls/hr Q10H 12/01/18 11:06 12/01/18 21:05 DC 12/01/18 12:53 100 MLS/HR Vancomycin HCl (Vanco Per Pharmacy) 1 each PRN DAILY PRN 12/01/18 11:15 Cancel Vancomycin HCl 1.75 gm/Sodium Chloride 500 ml @ 250 mls/hr 1X ONCE 12/01/18 12:00 12/01/18 13:59 DC 12/01/18 14:09 250 MLS/HR Labs: Lab Laboratory Tests Test 12/02/18 10:53 12/02/18 16:36 12/02/18 19:38 12/03/18 05:40 Glucose (Fingerstick) 132 mg/dL (70-99) 87 mg/dL (70-99) 130 mg/dL (70-99) White Blood Count 7.9 x10^3/uL (4.0-11.0) Red Blood Count 4.44 x10^6/uL (3.50-5.40) Hemoglobin 10.9 g/dL (12.0-15.5) Hematocrit 34.7 % (36.0-47.0) Mean Corpuscular Volume 78 fL (79-100) Mean Corpuscular Hemoglobin 25 pg (25-35) Mean Corpuscular Hemoglobin Concent 31 g/dL (31-37) Red Cell Distribution Width 17.0 % (11.5-14.5) Platelet Count 265 x10^3/uL (140-400) Neutrophils (%) (Auto) 51 % (31-73) Lymphocytes (%) (Auto) 38 % (24-48) Monocytes (%) (Auto) 8 % (0-9) Eosinophils (%) (Auto) 2 % (0-3) Basophils (%) (Auto) 1 % (0-3) Neutrophils # (Auto) 4.0 x10^3uL (1.8-7.7) Lymphocytes # (Auto) 3.0 x10^3/uL (1.0-4.8) Monocytes # (Auto) 0.6 x10^3/uL (0.0-1.1) Eosinophils # (Auto) 0.2 x10^3/uL (0.0-0.7) Basophils # (Auto) 0.1 x10^3/uL (0.0-0.2) Erythrocyte Sedimentation Rate 68 (0-25) Sodium Level 138 mmol/L (136-145) Potassium Level 3.9 mmol/L (3.5-5.1) Chloride Level 102 mmol/L (98-107) Carbon Dioxide Level 27 mmol/L (21-32) Anion Gap 9 (6-14) Blood Urea Nitrogen 18 mg/dL (7-20) Creatinine 0.8 mg/dL (0.6-1.0) Estimated GFR (Cockcroft-Gault) 94.3 Glucose Level 107 mg/dL (70-99) Calcium Level 8.8 mg/dL (8.5-10.1) Test 12/03/18 07:50 Glucose (Fingerstick) 97 mg/dL (70-99) Micro RUN DATE: 12/02/18 PAGE 1 RUN TIME: 1615 [facility] [address] [place] [address] Tung Liu M.D., [employer] PATIENT: FABRICIO DURHAM ACCT: [id number] LOC: [address] [place] [address] U : [id number] AGE/SX: 43/F ROOM: 569 REG : 12/01/[address]: MELISSA KUO MD : 1975 BED: 1 DIS : STATUS: ADM IN TLOC: SPEC #: [id number] WILL: 12/01/18 STATUS: RES REQ #: [id number] RECD: 12/01/[address]: MELISSA KUO MD SOURCE: FOOT ENTR: 12/01/18-[address] [facility] [address]: ELIZA AMADO III DO [facility]: RIGHT ANNA OLVERA MD NO PCP ORDERED: ANAER/AEROB/GS Procedure Result ANAEROBIC-AEROBIC CULTURE PENDING ANAEROBIC RES 1 PENDING AEROBIC CULT PENDING AEROBIC RES 1 PENDING GRAM STAIN Final Final report GRAM STAIN RES 1 Final Comment Rare white blood cells. 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 DM poorly controlled Noncomplaince Plan: Plan of Care cont merrem and linezolid s/p one dose of IV Vanc, f/u c/s local wound/vac care monitor labs closely CAT AKINS MD Dec 03, 2018 08:24
--- NOTE | 2018-12-03 09:40 | PDOC ---
PROGRESS NOTES Chief Complaint Chief Complaint Status post left fifth toe amputated for PVD versus diabetes - vascular surgery and ID on board, indwelling wound VAC/wound care Diabetes type 2 uncontrolled - hgba1c 12 History of Present Illness History of Present Illness Primary service is vascular surgery-Dr. Prabhakar Patient is self-pay Wound VAC in place left pinky toe Blood sugars are better since I adjusted on 12/02/18 Hemoglobin A1c is 12 Patient was taken off of metformin by PCP before for unclear reasons Pt has no other complaints Claims she is starting a vegan diet at home to help BS Plan: cont lantus 20 units daily at bedtime cont lispro 10units 3 times a day with meals cont metformin 500 BID Wound care per wound care and basilar surgery Wound VAC-social work consult self-pay need for wound VAC? RX for insulin regimen on chart Vitals Vitals Vital Signs Date Time Temp Pulse Resp B/P (MAP) Pulse Ox O2 Delivery O2 Flow Rate FiO2 12/03/18 08:09 70 137/86 12/03/18 08:00 Room Air 2.0 12/03/18 07:00 98.3 18 100 98.3 Physical Exam Physical Exam HEENT: Normocephalic, atraumatic, anicteric. No thrush. NECK: Supple. No JVD. LUNGS: Clear bilaterally. HEART: S1, S2 regular. ABDOMEN: Soft, nontender, nondistended. EXTREMITIES: Left lower extremity dressing intact. Wound VAC intact, not taken down. Right lower extremity unremarkable. NEUROLOGIC: Alert and oriented x 3. Grossly nonfocal. DERMATOLOGIC: Warm and dry. No generalized rash. Cyst over the left upper extremity, keloid over the left upper extremity. General: Alert, Oriented X3, Cooperative, No acute distress Heart: Regular rate, Normal S1, Normal S2, No murmurs Lungs: Clear, Other Abdomen: Normal bowel sounds, Soft Extremities: No clubbing, No cyanosis, No edema, Normal pulses, Other (left pinky toe amputated with a dry dressing and a wound VAC in place) Labs LABS Laboratory Tests Test 12/02/18 10:53 12/02/18 16:36 12/02/18 19:38 12/03/18 05:40 Glucose (Fingerstick) 132 mg/dL (70-99) 87 mg/dL (70-99) 130 mg/dL (70-99) White Blood Count 7.9 x10^3/uL (4.0-11.0) Red Blood Count 4.44 x10^6/uL (3.50-5.40) Hemoglobin 10.9 g/dL (12.0-15.5) Hematocrit 34.7 % (36.0-47.0) Mean Corpuscular Volume 78 fL (79-100) Mean Corpuscular Hemoglobin 25 pg (25-35) Mean Corpuscular Hemoglobin Concent 31 g/dL (31-37) Red Cell Distribution Width 17.0 % (11.5-14.5) Platelet Count 265 x10^3/uL (140-400) Neutrophils (%) (Auto) 51 % (31-73) Lymphocytes (%) (Auto) 38 % (24-48) Monocytes (%) (Auto) 8 % (0-9) Eosinophils (%) (Auto) 2 % (0-3) Basophils (%) (Auto) 1 % (0-3) Neutrophils # (Auto) 4.0 x10^3uL (1.8-7.7) Lymphocytes # (Auto) 3.0 x10^3/uL (1.0-4.8) Monocytes # (Auto) 0.6 x10^3/uL (0.0-1.1) Eosinophils # (Auto) 0.2 x10^3/uL (0.0-0.7) Basophils # (Auto) 0.1 x10^3/uL (0.0-0.2) Erythrocyte Sedimentation Rate 68 (0-25) Sodium Level 138 mmol/L (136-145) Potassium Level 3.9 mmol/L (3.5-5.1) Chloride Level 102 mmol/L (98-107) Carbon Dioxide Level 27 mmol/L (21-32) Anion Gap 9 (6-14) Blood Urea Nitrogen 18 mg/dL (7-20) Creatinine 0.8 mg/dL (0.6-1.0) Estimated GFR (Cockcroft-Gault) 94.3 Glucose Level 107 mg/dL (70-99) Calcium Level 8.8 mg/dL (8.5-10.1) Test 12/03/18 07:50 Glucose (Fingerstick) 97 mg/dL (70-99) Review of Systems Review of Systems A 14 point ROS was completed with the following noted as positive: Other systems reviewed and negative. \CONSTITUTIONAL: No fever or chills EYES: No recent changes SKIN: No rash or itching CARDIOVASCULAR: No chest pain, syncope, palpitations, or edema RESPIRATORY: No SOB or cough GASTROINTESTINAL: No nausea, vomiting or abdominal pain NEUROLOGICAL: No headaches or weakness ENDOCRINE: No cold or heat intolerance GENITOURINARY: No urgency or frequency of urination MUSCULOSKELETAL: No back pain or joint pain LYMPHATICS: No enlarged lymph nodes PSYCHIATRIC: No anxiety or depression Comment Review of Relevant I have reviewed the following items pat (where applicable) has been applied. Labs Laboratory Tests Test 12/01/18 10:10 12/01/18 10:24 12/01/18 11:09 12/01/18 12:03 White Blood Count 8.3 x10^3/uL (4.0-11.0) Red Blood Count 4.29 x10^6/uL (3.50-5.40) Hemoglobin 10.9 g/dL (12.0-15.5) Hematocrit 33.7 % (36.0-47.0) Mean Corpuscular Volume 79 fL (79-100) Mean Corpuscular Hemoglobin 25 pg (25-35) Mean Corpuscular Hemoglobin Concent 32 g/dL (31-37) Red Cell Distribution Width 16.5 % (11.5-14.5) Platelet Count 236 x10^3/uL (140-400) Neutrophils (%) (Auto) 68 % (31-73) Lymphocytes (%) (Auto) 22 % (24-48) Monocytes (%) (Auto) 8 % (0-9) Eosinophils (%) (Auto) 2 % (0-3) Basophils (%) (Auto) 1 % (0-3) Neutrophils # (Auto) 5.6 x10^3uL (1.8-7.7) Lymphocytes # (Auto) 1.8 x10^3/uL (1.0-4.8) Monocytes # (Auto) 0.6 x10^3/uL (0.0-1.1) Eosinophils # (Auto) 0.2 x10^3/uL (0.0-0.7) Basophils # (Auto) 0.1 x10^3/uL (0.0-0.2) Sodium Level 136 mmol/L (136-145) Potassium Level 4.5 mmol/L (3.5-5.1) Chloride Level 99 mmol/L (98-107) Carbon Dioxide Level 29 mmol/L (21-32) Anion Gap 8 (6-14) Blood Urea Nitrogen 16 mg/dL (7-20) Creatinine 0.8 mg/dL (0.6-1.0) Estimated GFR (Cockcroft-Gault) 94.3 Glucose Level 335 mg/dL (70-99) Hemoglobin A1c 12.3 % (4.8-5.6) Calcium Level 9.3 mg/dL (8.5-10.1) Glucose (Fingerstick) 294 mg/dL (70-99) 337 mg/dL (70-99) 318 mg/dL (70-99) Test 12/01/18 17:14 12/01/18 21:15 12/02/18 07:29 12/02/18 10:53 Glucose (Fingerstick) 105 mg/dL (70-99) 248 mg/dL (70-99) 253 mg/dL (70-99) 132 mg/dL (70-99) Test 12/02/18 16:36 12/02/18 19:38 12/03/18 05:40 12/03/18 07:50 Glucose (Fingerstick) 87 mg/dL (70-99) 130 mg/dL (70-99) 97 mg/dL (70-99) White Blood Count 7.9 x10^3/uL (4.0-11.0) Red Blood Count 4.44 x10^6/uL (3.50-5.40) Hemoglobin 10.9 g/dL (12.0-15.5) Hematocrit 34.7 % (36.0-47.0) Mean Corpuscular Volume 78 fL (79-100) Mean Corpuscular Hemoglobin 25 pg (25-35) Mean Corpuscular Hemoglobin Concent 31 g/dL (31-37) Red Cell Distribution Width 17.0 % (11.5-14.5) Platelet Count 265 x10^3/uL (140-400) Neutrophils (%) (Auto) 51 % (31-73) Lymphocytes (%) (Auto) 38 % (24-48) Monocytes (%) (Auto) 8 % (0-9) Eosinophils (%) (Auto) 2 % (0-3) Basophils (%) (Auto) 1 % (0-3) Neutrophils # (Auto) 4.0 x10^3uL (1.8-7.7) Lymphocytes # (Auto) 3.0 x10^3/uL (1.0-4.8) Monocytes # (Auto) 0.6 x10^3/uL (0.0-1.1) Eosinophils # (Auto) 0.2 x10^3/uL (0.0-0.7) Basophils # (Auto) 0.1 x10^3/uL (0.0-0.2) Erythrocyte Sedimentation Rate 68 (0-25) Sodium Level 138 mmol/L (136-145) Potassium Level 3.9 mmol/L (3.5-5.1) Chloride Level 102 mmol/L (98-107) Carbon Dioxide Level 27 mmol/L (21-32) Anion Gap 9 (6-14) Blood Urea Nitrogen 18 mg/dL (7-20) Creatinine 0.8 mg/dL (0.6-1.0) Estimated GFR (Cockcroft-Gault) 94.3 Glucose Level 107 mg/dL (70-99) Calcium Level 8.8 mg/dL (8.5-10.1) Laboratory Tests Test 12/02/18 10:53 12/02/18 16:36 12/02/18 19:38 12/03/18 05:40 Glucose (Fingerstick) 132 mg/dL (70-99) 87 mg/dL (70-99) 130 mg/dL (70-99) White Blood Count 7.9 x10^3/uL (4.0-11.0) Red Blood Count 4.44 x10^6/uL (3.50-5.40) Hemoglobin 10.9 g/dL (12.0-15.5) Hematocrit 34.7 % (36.0-47.0) Mean Corpuscular Volume 78 fL (79-100) Mean Corpuscular Hemoglobin 25 pg (25-35) Mean Corpuscular Hemoglobin Concent 31 g/dL (31-37) Red Cell Distribution Width 17.0 % (11.5-14.5) Platelet Count 265 x10^3/uL (140-400) Neutrophils (%) (Auto) 51 % (31-73) Lymphocytes (%) (Auto) 38 % (24-48) Monocytes (%) (Auto) 8 % (0-9) Eosinophils (%) (Auto) 2 % (0-3) Basophils (%) (Auto) 1 % (0-3) Neutrophils # (Auto) 4.0 x10^3uL (1.8-7.7) Lymphocytes # (Auto) 3.0 x10^3/uL (1.0-4.8) Monocytes # (Auto) 0.6 x10^3/uL (0.0-1.1) Eosinophils # (Auto) 0.2 x10^3/uL (0.0-0.7) Basophils # (Auto) 0.1 x10^3/uL (0.0-0.2) Erythrocyte Sedimentation Rate 68 (0-25) Sodium Level 138 mmol/L (136-145) Potassium Level 3.9 mmol/L (3.5-5.1) Chloride Level 102 mmol/L (98-107) Carbon Dioxide Level 27 mmol/L (21-32) Anion Gap 9 (6-14) Blood Urea Nitrogen 18 mg/dL (7-20) Creatinine 0.8 mg/dL (0.6-1.0) Estimated GFR (Cockcroft-Gault) 94.3 Glucose Level 107 mg/dL (70-99) Calcium Level 8.8 mg/dL (8.5-10.1) Test 12/03/18 07:50 Glucose (Fingerstick) 97 mg/dL (70-99) Microbiology 12/01/18 Anaerobic/Aerobic Culture, Resulted Pending 12/01/18 Anaerobic Culture Result 1 (PER), Resulted Pending 12/01/18 Aerobic Culture, Resulted Pending 12/01/18 Aerobic Culture Result 1 (PER), Resulted Pending 12/01/18 Gram Stain - Final, Resulted 12/01/18 Gram Stain Result 1 (PER) - Final, Resulted 12/01/18 Gram Stain Result 2 (PER) - Final, Resulted Medications Current Medications Cefazolin Sodium/ Dextrose 50 ml @ 100 mls/hr 1X PREOP PRN IV PRIOR TO PROCEDURE Last administered on 12/01/18at 10:40; Start 12/01/18 at 06:00; Stop at 18:00; Status DC Propofol 20 ml @ As Directed STK-MED ONCE IV ; Start 12/01/18 at 09:49; Stop 10/07 at 09:50; Status DC Lidocaine HCl (Lidocaine Pf 2% Vial) 5 ml STK-MED ONCE .ROUTE ; Start 12/01/18 at 09:49; Stop 12/01/18 at 09:50; Status DC Cefazolin Sodium 1 gm/Sodium Chloride 500 ml @ 500 mls/hr 1X ONCE IRR Last administered on 12/01/18at 11:03; Start 12/01/18 at 10:30; Stop 12/01/18 at 11:29 ; Status DC Lidocaine HCl 20 ml STK-MED ONCE .ROUTE ; Start 12/01/18 at 10:16; Stop at 10:17; Status DC Ringer's Solution 1,000 ml @ 100 mls/hr Q10H IV Last administered on at 10:20; Start 12/01/18 at 10:20; Stop 12/01/18 at 20:11; Status DC Dexamethasone Sodium Phosphate (Decadron) 20 mg STK-MED ONCE .ROUTE ; Start 10/07 at 10:36; Stop 12/01/18 at 10:37; Status DC Sevoflurane (Ultane) 15 ml STK-MED ONCE IH ; Start 12/01/18 at 10:36; Stop 12/01 at 10:37; Status DC Ondansetron HCl (Zofran) 4 mg STK-MED ONCE .ROUTE ; Start 12/01/18 at 10:37; Stop 12/01/18 at 10:38; Status DC Ephedrine Sulfate (Akovaz) 50 mg STK-MED ONCE .ROUTE ; Start 12/01/18 at 10:48; Stop 12/01/18 at 10:49; Status DC Amlodipine Besylate (Norvasc) 5 mg DAILY PO Last administered on 12/03/18at 08: 09; Start 12/02/18 at 09:00 Clopidogrel Bisulfate (Plavix) 75 mg DAILYWBKFT PO Last administered on at 08:08; Start 12/02/18 at 08:00 Glimepiride (Amaryl) 2 mg DAILY PO Last administered on 12/02/18at 08:46; Start 12/02/18 at 09:00; Stop 12/02/18 at 09:00; Status DC Oxycodone/ Acetaminophen (Percocet 5/325) 1 tab PRN Q4HRS PRN PO MODERATE PAIN , SEVERE PAIN Last administered on 12/03/18at 03:06; Start 12/01/18 at 11:15 Sodium Chloride 1,000 ml @ 100 mls/hr Q10H IV Last administered on 12/01/18at 12:53; Start 12/01/18 at 11:06; Stop 12/01/18 at 21:05; Status DC Ondansetron HCl (Zofran) 4 mg PRN Q6HRS PRN IV NAUSEA/VOMITING; Start 12/01/18 at 11:15 Morphine Sulfate (Morphine Sulfate) 2 mg PRN Q1HR PRN IV PAIN Last administered on 12/02/18at 18:58; Start 12/01/18 at 11:15 Oxycodone/ Acetaminophen (Percocet 5/325) 2 tab PRN Q4HRS PRN PO MODERATE PAIN , SEVERE PAIN; Start 12/01/18 at 11:15 Senna/Docusate Sodium (Senna Plus) 1 tab BID PRN PO constipation; Start at 11:15 Piperacillin Sod/ Tazobactam Sod (Zosyn Per Pharmacy) 1 each PRN DAILY PRN MC SEE COMMENTS; Start 12/01/18 at 11:15; Stop 12/02/18 at 14:15; Status DC Vancomycin HCl (Vanco Per Pharmacy) 1 each PRN DAILY PRN MC SEE COMMENTS; Start 12/01/18 at 11:15; Status Cancel Insulin Human Lispro (HumaLOG VIAL) 6 unit 1X ONCE SQ Last administered on 10/07at 11:21; Start 12/01/18 at 11:15; Stop 12/01/18 at 11:17; Status DC Vancomycin HCl 1.75 gm/Sodium Chloride 500 ml @ 250 mls/hr 1X ONCE IV Last administered on 12/01/18at 14:09; Start 12/01/18 at 12:00; Stop 12/01/18 at 13:59 ; Status DC Piperacillin Sod/ Tazobactam Sod 3.375 gm/Sodium Chloride 50 ml @ 100 mls/hr Q6H IV Last administered on 12/02/18 06:24; Start 12/01/18 at 13:00; Stop at 11:40; Status DC Insulin Glargine (Lantus) 12 units QHS SQ Last administered on 12/01/18 21:20 ; Start 12/01/18 at 21:00; Stop 12/02/18 at 08:54; Status DC Insulin Human Lispro (HumaLOG) 0-9 UNITS TIDWMEALS SQ Last administered on 12/02 08:52; Start 12/01/18 at 13:00 Dextrose (Dextrose 50%-Water Syringe) 12.5 gm PRN Q15MIN PRN IV SEE COMMENTS; Start 12/01/18 at 13:00 Insulin Human Lispro (HumaLOG) 10 units 1X ONCE SQ Last administered on 13:14; Start 12/01/18 at 13:00; Stop 12/01/18 at 13:01; Status DC Linezolid/Dextrose 300 ml @ 300 mls/hr Q12HR IV Last administered on 08:55; Start 12/02/18 at 09:00; Stop 12/02/18 at 11:40; Status DC Insulin Glargine (Lantus) 20 units QHS SQ Last administered on 12/02/18 21:12 ; Start 12/02/18 at 21:00 Insulin Human Lispro (HumaLOG) 10 units TIDWMEALS SQ Last administered on 17:30; Start 12/02/18 at 12:00 Metformin HCl (Glucophage) 500 mg BIDWMEALS PO Last administered on 12/03/18 08:09; Start 12/02/18 at 17:00 Linezolid (Zyvox) 600 mg BID PO Last administered on 12/03/18 08:09; Start at 21:00 Meropenem 500 mg/ Sodium Chloride 50 ml @ 100 mls/hr Q6HRS IV Last administered on 12/03/18 05:28; Start 12/02/18 at 12:00 Active Scripts Active Amlodipine Besylate 5 Mg Tablet 5 Mg PO DAILY 30 Days Clopidogrel (Clopidogrel Bisulfate) 75 Mg Tablet 75 Mg PO DAILYWBKFT 30 Days Oxycodone-Acetaminophen 5-325 (Oxycodone Hcl/Acetaminophen) 1 Each Tablet 1-2 Tab PO PRN Q4HRS PRN Glimepiride 2 Mg Tablet 2 Mg PO DAILY Vitals/I & O Vital Sign - Last 24 Hours 12/02/18 12/02/18 12/02/18 12/02/18 11:00 15:00 15:26 15:56 Temp 98.1 97.4 98.1 97.4 Pulse 89 84 Resp 16 14 18 B/P (MAP) 124/77 (93) 112/59 (76) Pulse Ox 100 98 98 O2 Delivery Room Air Room Air Room Air O2 Flow Rate 8.0 12/02/18 12/02/18 12/02/18 12/02/18 18:58 19:00 19:30 19:45 Temp 97.7 97.7 Pulse 81 Resp 18 18 20 B/P (MAP) 134/72 (92) Pulse Ox 99 O2 Delivery Room Air Room Air Room Air Room Air 12/02/18 12/03/18 12/03/18 12/03/18 23:00 03:00 03:06 03:56 Temp 98.6 98.6 98.6 98.6 Pulse 81 89 Resp 18 18 20 20 B/P (MAP) 126/77 (93) 131/78 (95) Pulse Ox 94 99 97 94 O2 Delivery Room Air Room Air Room Air Room Air O2 Flow Rate 8.0 8.0 12/03/18 12/03/18 12/03/18 07:00 08:00 08:09 Temp 98.3 98.3 Pulse 70 70 Resp 18 B/P (MAP) 137/86 (103) 137/86 Pulse Ox 100 O2 Delivery Nasal Cannula Room Air O2 Flow Rate 2.0 2.0 Intake and Output 12/02/18 12/02/18 12/03/18 15:00 23:00 07:00 Output Total 0 ml 800 ml Balance 0 ml -800 ml MEJIA GOODEN MD Dec 03, 2018 09:40
[2018-12-03] MEDS ORDERED: METF500T PO (09:42)
[2018-12-03] MEDS ORDERED: INSU100I13 SQ (09:42)
[2018-12-03] MEDS ORDERED: OXYC1TAB15 PO (09:42)
[2018-12-03] MEDS ORDERED: INSU100I11 SQ (09:42)
--- NOTE | 2018-12-03 10:39 | PDOC ---
Provider Note Provider Note Vascular S: Patient seen and examined in room. No complaints. O: Awake and alert Vac in place and functioning left foot., skin edges intact, no erythema or swelling. A/P: Diabetic foot wound. s/p Left SFA angioplasty and stent placement 09/14/2018 by IR Previous left first toe open amputation, with gangrenous necrotic tissue within the wound bed. POD #2 Excisional debridement subcutaneous tissue, bone, and tendon left first toe. Continue wound vac therapy. Discussed with wound care nurse, to arrange jazmin vac for patient. Antibiotics per ID, will likely transition to oral upon discharge. Continue Plavix 75mg for stent placement Continue to off-load foot with front off-loading 1/2 shoe. Patient states Wound Care is arranging a different style of boot for patient. Elevate while in bed. DM-Hospitalist managing, again discussed with patient the need for tight glycemic control. TITI HUI APRN Dec 03, 2018 10:39
[2018-12-03 11:00] VITALS: BP 119/73
[2018-12-03 15:00] VITALS: BP 110/59
--- NOTE | 2018-12-03 15:52 | NUR ---
SW following. Discussed with RN. Pt will need a new [facility] wound vac. Wound care will work on this application. Pt had already been following at the wound care clinic. SW met with pt to give self pay resource packet. Pt denied any further SW needs. RN notified.
[2018-12-03 19:00] VITALS: BP 106/68
[2018-12-03] MEDS: MORPHINE SULFATE 4 MG/ML VIAL. IV PRN (20:30)
[2018-12-03] MEDS: LACTOBACILLUS RHAMNOSUS GG 1 CAPSULE. PO SCH (20:31)
[2018-12-03] MEDS: INSULIN GLARGINE 300 UNITS/3 ML INSULN.PEN. SQ SCH (22:11)
[2018-12-03 23:00] VITALS: BP 135/83
[2018-12-04 03:00] VITALS: BP 120/72
[2018-12-04] MEDS: MEROPENEM 500 MG in IV NORMAL SALINE 50ML 50 ML IV SCH ×2 (06:20→12:56)
[2018-12-04 07:00] VITALS: BP 118/79
[2018-12-04] MEDS: CLOPIDOGREL BISULFATE 75 MG TABLET PO SCH (08:36)
[2018-12-04] MEDS: LINEZOLID 600 MG TABLET PO SCH (08:36)
[2018-12-04] MEDS: metFORMIN 500 MG TABLET PO SCH ×2 (08:37→17:08)
[2018-12-04] MEDS: LACTOBACILLUS RHAMNOSUS GG 1 CAPSULE. PO SCH (08:37)
[2018-12-04] MEDS: amLODIPine BESYLATE 5 MG TABLET PO SCH (08:37)
[2018-12-04] MEDS: INSULIN LISPRO 300 UNITS/3 ML INSULN.PEN. SQ SCH ×5 (08:39→17:09)
--- NOTE | 2018-12-04 09:00 | PDOC ---
Infectious Disease Note Subjective: Subjective pt says feels ok postop pain is under control ROS: ROS Negative except for above. Vital Signs: Vital Signs Vital Signs Date Time Temp Pulse Resp B/P (MAP) Pulse Ox O2 Delivery O2 Flow Rate FiO2 12/04/18 08:37 87 118/79 12/04/18 07:00 96.6 17 97 Room Air 96.6 12/03/18 08:00 2.0 Physical Exam: PHYSICAL EXAM HEENT: Normocephalic, atraumatic, anicteric. No thrush. NECK: Supple. No JVD. LUNGS: Clear bilaterally. HEART: S1, S2 regular. ABDOMEN: Soft, nontender, nondistended. EXTREMITIES: Left lower extremity dressing intact. Wound VAC intact, not taken down. Right lower extremity unremarkable. NEUROLOGIC: Alert and oriented x 3. Grossly nonfocal. DERMATOLOGIC: Warm and dry. No generalized rash. Cyst over the left upper extremity, keloid over the left upper extremity. Medications: Inpatient Meds: Current Medications Medications (Trade) Dose Ordered Sig/Jono Start Time Stop Time Status Last Admin Dose Admin Amlodipine Besylate (Norvasc) 5 mg DAILY 12/02/18 09:00 12/04/18 08:37 5 MG Cefazolin Sodium 1 gm/Sodium Chloride 500 ml @ 500 mls/hr 1X ONCE 12/01/18 10:30 12/01/18 11:29 DC 12/01/18 11:03 Cefazolin Sodium/ Dextrose 50 ml @ 100 mls/hr 1X PREOP PRN 12/01/18 06:00 12/01/18 18:00 DC 12/01/18 10:40 100 MLS/HR Clopidogrel Bisulfate (Plavix) 75 mg DAILYWBKFT 12/02/18 08:00 12/04/18 08:36 75 MG Dexamethasone Sodium Phosphate (Decadron) 20 mg STK-MED ONCE 12/01/18 10:36 12/01/18 10:37 DC Dextrose (Dextrose 50%-Water Syringe) 12.5 gm PRN Q15MIN PRN 12/01/18 13:00 12/03/18 21:37 12.5 GM Ephedrine Sulfate (Akovaz) 50 mg STK-MED ONCE 12/01/18 10:48 12/01/18 10:49 DC Glimepiride (Amaryl) 2 mg DAILY 12/02/18 09:00 12/02/18 09:00 DC 12/02/18 08:46 2 MG Insulin Glargine (Lantus) 20 units QHS 12/02/18 21:00 12/02/18 21:12 20 UNITS Insulin Human Lispro (HumaLOG VIAL) 6 unit 1X ONCE 12/01/18 11:15 12/01/18 11:17 DC 12/01/18 11:21 6 UNIT Insulin Human Lispro (HumaLOG) 8 units TIDWMEALS 12/04/18 12:00 Lactobacillus Rhamnosus (Culturelle) 1 cap BID 12/03/18 21:00 12/04/18 08:37 1 CAP Lidocaine HCl 20 ml STK-MED ONCE 12/01/18 10:16 12/01/18 10:17 DC Lidocaine HCl (Lidocaine Pf 2% Vial) 5 ml STK-MED ONCE 12/01/18 09:49 12/01/18 09:50 DC Linezolid (Zyvox) 600 mg BID 12/02/18 21:00 12/04/18 08:36 600 MG Linezolid/Dextrose 300 ml @ 300 mls/hr Q12HR 12/02/18 09:00 12/02/18 11:40 DC 12/02/18 08:55 300 MLS/HR Meropenem 500 mg/ Sodium Chloride 50 ml @ 100 mls/hr Q6HRS 12/02/18 12:00 12/04/18 06:20 100 MLS/HR Metformin HCl (Glucophage) 500 mg BIDWMEALS 12/02/18 17:00 12/04/18 08:37 500 MG Morphine Sulfate (Morphine Sulfate) 2 mg PRN Q1HR PRN 12/01/18 11:15 12/03/18 20:30 2 MG Ondansetron HCl (Zofran) 4 mg PRN Q6HRS PRN 12/01/18 11:15 Oxycodone/ Acetaminophen (Percocet 5/325) 2 tab PRN Q4HRS PRN 12/01/18 11:15 Piperacillin Sod/ Tazobactam Sod (Zosyn Per Pharmacy) 1 each PRN DAILY PRN 12/01/18 11:15 12/02/18 14:15 DC Piperacillin Sod/ Tazobactam Sod 3.375 gm/Sodium Chloride 50 ml @ 100 mls/hr Q6H 12/01/18 13:00 12/02/18 11:40 DC 12/02/18 06:24 100 MLS/HR Propofol 20 ml @ As Directed STK-MED ONCE 12/01/18 09:49 12/01/18 09:50 DC Ringer's Solution 1,000 ml @ 100 mls/hr Q10H 12/01/18 10:20 12/01/18 20:11 DC 12/01/18 10:20 100 MLS/HR Senna/Docusate Sodium (Senna Plus) 1 tab BID PRN 12/01/18 11:15 Sevoflurane (Ultane) 15 ml STK-MED ONCE 12/01/18 10:36 12/01/18 10:37 DC Sodium Chloride 1,000 ml @ 100 mls/hr Q10H 12/01/18 11:06 12/01/18 21:05 DC 12/01/18 12:53 100 MLS/HR Vancomycin HCl (Vanco Per Pharmacy) 1 each PRN DAILY PRN 12/01/18 11:15 Cancel Vancomycin HCl 1.75 gm/Sodium Chloride 500 ml @ 250 mls/hr 1X ONCE 12/01/18 12:00 12/01/18 13:59 DC 12/01/18 14:09 250 MLS/HR Labs: Lab Laboratory Tests Test 12/03/18 10:39 12/03/18 17:06 12/03/18 20:56 12/03/18 21:58 Glucose (Fingerstick) 141 mg/dL (70-99) 163 mg/dL (70-99) 66 mg/dL (70-99) 153 mg/dL (70-99) Micro RUN DATE: 12/02/18 PAGE 1 RUN TIME: 1615 [facility] [address] [place] [address] Tung Liu M.D., [employer] Agent PATIENT: FABRICIO DURHAM ACCT: [id number] LOC: [address] [place] [address] U : [id number] AGE/SX: 43/F ROOM: 569 REG : 12/01/[address]: MELISSA KUO MD : 1975 BED: 1 DIS : STATUS: ADM IN TLOC: SPEC #: [id number] WILL: 12/01/18 STATUS: RES REQ #: [id number] RECD: 12/01/[address] [facility] [address]: MELISSA KUO MD SOURCE: FOOT ENTR: 12/01/18 [facility] DR: ELIZA AMADO III, DO SPDESC: RIGHT ANNA OLVERA MD NO PCP ORDERED: ANAER/AEROB/GS Procedure Result ANAEROBIC-AEROBIC CULTURE PENDING ANAEROBIC RES 1 PENDING AEROBIC CULT PENDING AEROBIC RES 1 PENDING GRAM STAIN Final Final report GRAM STAIN RES 1 Final Comment Rare white blood cells. GRAM STAIN RES 2 Final Comment Rare gram positive cocci Performed at: - [facility] [address] [facility] [address], [place], [place] [id number] Drive In Teller: MANDI Mallory MD, Phone: [phone] Objective: Assessment: Nonhealing Lt 1st toe amputation site -s/p I and D / - cult strep like org - Excisional debridement subcutaneous tissue, bone, and tendon left first toe. DM poorly controlled Noncomplaince Plan: Plan of Care cont merrem and linezolid for now s/p one dose of IV Vanc, f/u c/s will transition to po when ready for discharge d/w Vascular team local wound/vac care monitor labs closely CAT AKINS MD Dec 04, 2018 09:00
--- NOTE | 2018-12-04 09:46 | PDOC ---
PROGRESS NOTES Chief Complaint Chief Complaint Status post left fifth toe amputated for PVD versus diabetes - vascular surgery and ID on board, indwelling wound VAC/wound care Diabetes type 2 uncontrolled - [id number] 12 History of Present Illness History of Present Illness Primary service is vascular surgery-Dr. Prabhakar Patient is self-pay Wound VAC in place left pinky toe is still draining Social work on case, sounds like patient has started some Medicare or Medicaid application and we might be able to discharge home with wound VAC Borderline hypoglycemia with my current insulin regimen Insulin beltran Plan: cont Lantus 20 daily at bedtime Decrease NovoLog mealtimes to 8 from 10 units 3 times a day Continue metformin 500 twice a day Discharge plans per primary service-vascular surgery Vitals Vitals Vital Signs Date Time Temp Pulse Resp B/P (MAP) Pulse Ox O2 Delivery O2 Flow Rate FiO2 12/04/18 08:37 87 118/79 12/04/18 07:00 96.6 17 97 Room Air 96.6 12/03/18 08:00 2.0 Physical Exam Physical Exam HEENT: Normocephalic, atraumatic, anicteric. No thrush. NECK: Supple. No JVD. LUNGS: Clear bilaterally. HEART: S1, S2 regular. ABDOMEN: Soft, nontender, nondistended. EXTREMITIES: Left lower extremity dressing intact. Wound VAC intact, not taken down. Right lower extremity unremarkable. NEUROLOGIC: Alert and oriented x 3. Grossly nonfocal. DERMATOLOGIC: Warm and dry. No generalized rash. Cyst over the left upper extremity, keloid over the left upper extremity. General: Alert, Oriented X3, Cooperative, No acute distress Heart: Regular rate, Normal S1, Normal S2, No murmurs Lungs: Clear, Other Abdomen: Normal bowel sounds, Soft Extremities: No clubbing, No cyanosis, No edema, Normal pulses, Other (left pinky toe amputated with a dry dressing and a wound VAC in place) Labs LABS Laboratory Tests Test 12/03/18 10:39 12/03/18 17:06 12/03/18 20:56 12/03/18 21:58 Glucose (Fingerstick) 141 mg/dL (70-99) 163 mg/dL (70-99) 66 mg/dL (70-99) 153 mg/dL (70-99) Review of Systems Review of Systems A 14 point ROS was completed with the following noted as positive: Other systems reviewed and negative. \CONSTITUTIONAL: No fever or chills EYES: No recent changes SKIN: No rash or itching CARDIOVASCULAR: No chest pain, syncope, palpitations, or edema RESPIRATORY: No SOB or cough GASTROINTESTINAL: No nausea, vomiting or abdominal pain NEUROLOGICAL: No headaches or weakness ENDOCRINE: No cold or heat intolerance GENITOURINARY: No urgency or frequency of urination MUSCULOSKELETAL: No back pain or joint pain LYMPHATICS: No enlarged lymph nodes PSYCHIATRIC: No anxiety or depression Comment Review of Relevant I have reviewed the following items pat (where applicable) has been applied. Labs Laboratory Tests Test 12/02/18 10:53 12/02/18 16:36 12/02/18 19:38 12/03/18 05:40 Glucose (Fingerstick) 132 mg/dL (70-99) 87 mg/dL (70-99) 130 mg/dL (70-99) White Blood Count 7.9 x10^3/uL (4.0-11.0) Red Blood Count 4.44 x10^6/uL (3.50-5.40) Hemoglobin 10.9 g/dL (12.0-15.5) Hematocrit 34.7 % (36.0-47.0) Mean Corpuscular Volume 78 fL (79-100) Mean Corpuscular Hemoglobin 25 pg (25-35) Mean Corpuscular Hemoglobin Concent 31 g/dL (31-37) Red Cell Distribution Width 17.0 % (11.5-14.5) Platelet Count 265 x10^3/uL (140-400) Neutrophils (%) (Auto) 51 % (31-73) Lymphocytes (%) (Auto) 38 % (24-48) Monocytes (%) (Auto) 8 % (0-9) Eosinophils (%) (Auto) 2 % (0-3) Basophils (%) (Auto) 1 % (0-3) Neutrophils # (Auto) 4.0 x10^3uL (1.8-7.7) Lymphocytes # (Auto) 3.0 x10^3/uL (1.0-4.8) Monocytes # (Auto) 0.6 x10^3/uL (0.0-1.1) Eosinophils # (Auto) 0.2 x10^3/uL (0.0-0.7) Basophils # (Auto) 0.1 x10^3/uL (0.0-0.2) Erythrocyte Sedimentation Rate 68 (0-25) Sodium Level 138 mmol/L (136-145) Potassium Level 3.9 mmol/L (3.5-5.1) Chloride Level 102 mmol/L (98-107) Carbon Dioxide Level 27 mmol/L (21-32) Anion Gap 9 (6-14) Blood Urea Nitrogen 18 mg/dL (7-20) Creatinine 0.8 mg/dL (0.6-1.0) Estimated GFR (Cockcroft-Gault) 94.3 Glucose Level 107 mg/dL (70-99) Calcium Level 8.8 mg/dL (8.5-10.1) Test 12/03/18 07:50 12/03/18 10:39 12/03/18 17:06 12/03/18 20:56 Glucose (Fingerstick) 97 mg/dL (70-99) 141 mg/dL (70-99) 163 mg/dL (70-99) 66 mg/dL (70-99) Test 12/03/18 21:58 Glucose (Fingerstick) 153 mg/dL (70-99) Laboratory Tests Test 12/03/18 10:39 12/03/18 17:06 12/03/18 20:56 12/03/18 21:58 Glucose (Fingerstick) 141 mg/dL (70-99) 163 mg/dL (70-99) 66 mg/dL (70-99) 153 mg/dL (70-99) Microbiology 12/01/18 Anaerobic/Aerobic Culture, Resulted Pending 12/01/18 Anaerobic Culture Result 1 (PER), Resulted Pending 12/01/18 Aerobic Culture - Preliminary, Resulted 12/01/18 Aerobic Culture Result 1 (PER) - Preliminary, Resulted 12/01/18 Aerobic Culture Result 2 (PER) - Preliminary, Resulted 12/01/18 Gram Stain - Final, Resulted 12/01/18 Gram Stain Result 1 (PER) - Final, Resulted 12/01/18 Gram Stain Result 2 (PER) - Final, Resulted Medications Current Medications Cefazolin Sodium/ Dextrose 50 ml @ 100 mls/hr 1X PREOP PRN IV PRIOR TO PROCEDURE Last administered on 12/01/18at 10:40; Start 12/01/18 at 06:00; Stop at 18:00; Status DC Propofol 20 ml @ As Directed STK-MED ONCE IV ; Start 12/01/18 at 09:49; Stop 10/07 at 09:50; Status DC Lidocaine HCl (Lidocaine Pf 2% Vial) 5 ml STK-MED ONCE .ROUTE ; Start 12/01/18 at 09:49; Stop 12/01/18 at 09:50; Status DC Cefazolin Sodium 1 gm/Sodium Chloride 500 ml @ 500 mls/hr 1X ONCE IRR Last administered on 12/01/18at 11:03; Start 12/01/18 at 10:30; Stop 12/01/18 at 11:29 ; Status DC Lidocaine HCl 20 ml STK-MED ONCE .ROUTE ; Start 12/01/18 at 10:16; Stop at 10:17; Status DC Ringer's Solution 1,000 ml @ 100 mls/hr Q10H IV Last administered on at 10:20; Start 12/01/18 at 10:20; Stop 12/01/18 at 20:11; Status DC Dexamethasone Sodium Phosphate (Decadron) 20 mg STK-MED ONCE .ROUTE ; Start 10/07 at 10:36; Stop 12/01/18 at 10:37; Status DC Sevoflurane (Ultane) 15 ml STK-MED ONCE IH ; Start 12/01/18 at 10:36; Stop 12/01 at 10:37; Status DC Ondansetron HCl (Zofran) 4 mg STK-MED ONCE .ROUTE ; Start 12/01/18 at 10:37; Stop 12/01/18 at 10:38; Status DC Ephedrine Sulfate (Akovaz) 50 mg STK-MED ONCE .ROUTE ; Start 12/01/18 at 10:48; Stop 12/01/18 at 10:49; Status DC Amlodipine Besylate (Norvasc) 5 mg DAILY PO Last administered on 12/04/18at 08: 37; Start 12/02/18 at 09:00 Clopidogrel Bisulfate (Plavix) 75 mg DAILYWBKFT PO Last administered on at 08:36; Start 12/02/18 at 08:00 Glimepiride (Amaryl) 2 mg DAILY PO Last administered on 12/02/18at 08:46; Start 12/02/18 at 09:00; Stop 12/02/18 at 09:00; Status DC Oxycodone/ Acetaminophen (Percocet 5/325) 1 tab PRN Q4HRS PRN PO MODERATE PAIN , SEVERE PAIN Last administered on 12/03/18at 03:06; Start 12/01/18 at 11:15 Sodium Chloride 1,000 ml @ 100 mls/hr Q10H IV Last administered on 12/01/18at 12:53; Start 12/01/18 at 11:06; Stop 12/01/18 at 21:05; Status DC Ondansetron HCl (Zofran) 4 mg PRN Q6HRS PRN IV NAUSEA/VOMITING; Start 12/01/18 at 11:15 Morphine Sulfate (Morphine Sulfate) 2 mg PRN Q1HR PRN IV PAIN Last administered on 12/03/18at 20:30; Start 12/01/18 at 11:15 Oxycodone/ Acetaminophen (Percocet 5/325) 2 tab PRN Q4HRS PRN PO MODERATE PAIN , SEVERE PAIN; Start 12/01/18 at 11:15 Senna/Docusate Sodium (Senna Plus) 1 tab BID PRN PO constipation; Start at 11:15 Piperacillin Sod/ Tazobactam Sod (Zosyn Per Pharmacy) 1 each PRN DAILY PRN MC SEE COMMENTS; Start 12/01/18 at 11:15; Stop 12/02/18 at 14:15; Status DC Vancomycin HCl (Vanco Per Pharmacy) 1 each PRN DAILY PRN MC SEE COMMENTS; Start 12/01/18 at 11:15; Status Cancel Insulin Human Lispro (HumaLOG VIAL) 6 unit 1X ONCE SQ Last administered on 10/07at 11:21; Start 12/01/18 at 11:15; Stop 12/01/18 at 11:17; Status DC Vancomycin HCl 1.75 gm/Sodium Chloride 500 ml @ 250 mls/hr 1X ONCE IV Last administered on 12/01/18at 14:09; Start 12/01/18 at 12:00; Stop 12/01/18 at 13:59 ; Status DC Piperacillin Sod/ Tazobactam Sod 3.375 gm/Sodium Chloride 50 ml @ 100 mls/hr Q6H IV Last administered on 12/02/18 06:24; Start 12/01/18 at 13:00; Stop at 11:40; Status DC Insulin Glargine (Lantus) 12 units QHS SQ Last administered on 12/01/18 21:20 ; Start 12/01/18 at 21:00; Stop 12/02/18 at 08:54; Status DC Insulin Human Lispro (HumaLOG) 0-9 UNITS TIDWMEALS SQ Last administered on 12/04at 08:39; Start 12/01/18 at 13:00 Dextrose (Dextrose 50%-Water Syringe) 12.5 gm PRN Q15MIN PRN IV SEE COMMENTS Last administered on 12/03/18 21:37; Start 12/01/18 at 13:00 Insulin Human Lispro (HumaLOG) 10 units 1X ONCE SQ Last administered on at 13:14; Start 12/01/18 at 13:00; Stop 12/01/18 at 13:01; Status DC Linezolid/Dextrose 300 ml @ 300 mls/hr Q12HR IV Last administered on at 08:55; Start 12/02/18 at 09:00; Stop 12/02/18 at 11:40; Status DC Insulin Glargine (Lantus) 20 units QHS SQ Last administered on 12/02/18at 21:12 ; Start 12/02/18 at 21:00 Insulin Human Lispro (HumaLOG) 10 units TIDWMEALS SQ Last administered on at 17:32; Start 12/02/18 at 12:00; Stop 12/04/18 at 08:29; Status DC Metformin HCl (Glucophage) 500 mg BIDWMEALS PO Last administered on 12/04/18 08:37; Start 12/02/18 at 17:00 Linezolid (Zyvox) 600 mg BID PO Last administered on 12/04/18at 08:36; Start at 21:00 Meropenem 500 mg/ Sodium Chloride 50 ml @ 100 mls/hr Q6HRS IV Last administered on 12/04/18 06:20; Start 12/02/18 at 12:00 Lactobacillus Rhamnosus (Culturelle) 1 cap BID PO Last administered on at 08:37; Start 12/03/18 at 21:00 Insulin Human Lispro (HumaLOG) 8 units TIDWMEALS SQ ; Start 12/04/18 at 12:00 Active Scripts Active Lantus Solostar (Insulin Glargine,Hum.rec.anlog) 100 Unit/1 Ml Insuln.pen 20 Units SQ QHS MDD 1 30 Days Humalog (Insulin Lispro) 100 Unit/1 Ml Insuln.pen 10 Units SQ TIDWMEALS MDD 1 30 Days Glucophage (Metformin Hcl) 500 Mg Tablet 500 Mg PO BIDWMEALS MDD 1 30 Days Percocet 5-325 Mg Tablet (Oxycodone/Acetaminophen) 1 Each Tablet 2 Tab PO PRN Q4HRS PRN MDD 1 Amlodipine Besylate 5 Mg Tablet 5 Mg PO DAILY 30 Days Clopidogrel (Clopidogrel Bisulfate) 75 Mg Tablet 75 Mg PO DAILYWBKFT 30 Days Oxycodone-Acetaminophen 5-325 (Oxycodone Hcl/Acetaminophen) 1 Each Tablet 1-2 Tab PO PRN Q4HRS PRN Glimepiride 2 Mg Tablet 2 Mg PO DAILY Vitals/I & O Vital Sign - Last 24 Hours 12/03/18 12/03/18 12/03/18 12/03/18 11:00 15:00 19:00 20:30 Temp 98.1 98.1 98.6 98.1 98.1 98.6 Pulse 83 83 95 Resp 17 16 20 B/P (MAP) 119/73 (88) 110/59 (76) 106/68 (81) Pulse Ox 100 100 100 O2 Delivery Room Air Room Air Room Air Room Air 12/03/18 12/03/18 12/03/18 12/04/18 20:30 21:00 23:00 03:00 Temp 97.2 97.8 97.2 97.8 Pulse 88 84 Resp 20 20 20 20 B/P (MAP) 135/83 (100) 120/72 (88) Pulse Ox 99 99 O2 Delivery Room Air Room Air Room Air Room Air 12/04/18 12/04/18 07:00 08:37 Temp 96.6 96.6 Pulse 87 87 Resp 17 B/P (MAP) 118/79 (92) 118/79 Pulse Ox 97 O2 Delivery Room Air Intake and Output 12/03/18 12/03/18 12/04/18 14:59 22:59 06:59 Intake Total 780 ml 650 ml Balance 780 ml 650 ml MEJIA GOODEN MD Dec 04, 2018 09:46
--- NOTE | 2018-12-04 10:54 | NUR ---
SW following. Discussed with RN. Discusses with Zack Amaya advised they are hoping to get the jazmin wound vac today, otherwise they will discharge pt with dressings and have pt come to the clinic for dressing changes and placement of jazmin wound vac when it arrives. SARAY will continue to follow.
--- NOTE | 2018-12-04 11:00 | PDOC ---
Provider Note Provider Note Vascular S: Patient seen and examined in room. No complaints. O: Awake and alert Vac removed, wound bed clean with granulating tissue, some maceration along skin edges. A/P: Diabetic foot wound. s/p Left SFA angioplasty and stent placement 09/14/2018 by IR Previous left first toe open amputation, with gangrenous necrotic tissue within the wound bed. POD #3 Excisional debridement subcutaneous tissue, bone, and tendon left first toe. Continue wound vac therapy, if she qualifies for jazmin vac, otherwise local wound care. Antibiotics per ID, will likely transition to oral upon discharge. Continue Plavix 75mg for stent placement Continue to off-load foot with front off-loading 1/2 shoe. Will consult PT to evaluate patient's gait with 1/2 shoe. Elevate while in bed. DM-Hospitalist managing, again discussed with patient the need for tight glycemic control. TITI HUI APRN Dec 04, 2018 11:00
[2018-12-04 11:04] VITALS: BP 131/73
--- NOTE | 2018-12-04 11:13 | DISCH ---
DISCHARGE INSTRUCTIONS Condition on Discharge Condition on Discharge: Stable Activity After Discharge Activity Instructions for Disc: No restrictions, Activity as tolerated, Other, see below (may ambulate with front off-loading 1/2 shoe left foot, needs assessment from PT prior to discharge) Bathing Instructions: Shower-keep dressing dry, No Tub Bath until see Exercise Instruction after Dis: Progress as tolerated Driving Instructions after Dis: Do not drive today Weight Bearing Status after Di: Partial weight bearing Diet after Discharge Diet after Discharge: Diabetic No Calorie Level Wound Incision Care Wound/Incision Care: Change dressing Wound Care Equipment: Dressings (per Wound Care Nurses Instructions) Contacting the after DC Call your doctor for: If your condition worsens Follow-Up Follow up with: Dr. Prabhakar in 3 weeks calll for appointment [phone] TITI HUI APRN Dec 04, 2018 11:13
--- NOTE | 2018-12-04 11:29 | DISCH ---
DISCHARGE INSTRUCTIONS Condition on Discharge Condition on Discharge: Stable Activity After Discharge Activity Instructions for Disc: No restrictions, Activity as tolerated, Other, see below (may ambulate with front off-loading 1/2 shoe left foot, needs assessment from PT prior to discharge) Bathing Instructions: Shower-keep dressing dry, No Tub Bath until see Exercise Instruction after Dis: Progress as tolerated Driving Instructions after Dis: Do not drive today Weight Bearing Status after Di: Partial weight bearing Diet after Discharge Diet after Discharge: Diabetic No Calorie Level Wound Incision Care Wound/Incision Care: Change dressing Wound Care Equipment: Dressings (per Wound Care Nurses Instructions) Contacting the after DC Call your doctor for: If your condition worsens Follow-Up Follow up with: Dr. Prabhakar 12/24/2018 10:10 TITI HUI APRN Dec 04, 2018 11:29
[2018-12-04 15:00] VITALS: BP 120/76
--- NOTE | 2018-12-04 19:17 | NUR ---
Discharge Note: FELIX DURHAM Discharge instructions and discharge home medications reviewed with Patient and a copy given. All questions have been answered and understanding verbalized. The following instructions and handouts were given: Linezolid, Augmentin, Wound care, Wound infection, Diabetes foot care, diabetes meal planning guide, hypoglycemia, hyperglycemia, glucose monitoring. Discontinued lines and drains: 20G peripheral IV in R AC removed. Catheter intact. Patient discharged to home with self-care via WC to private vehicle. Pt. got dressing, and her belongings organized with no help. Pt. had stable gait and was anxious to get home.
== END 2018-12-04 18:55 | disposition home or self-care (01) | DRG 504 ==
LOC: SURG 09:13 → 5 SOUTH 11:49
PROVIDERS: ADMIT Internal Medicine; ATTEND Surgery Vascular Surgery
PROC: 0QBP0ZZ Excision of Left Metatarsal, Open Approach (ICD-10-PCS; principal; 2018-12-01 10:45)
DX: T87.89 Other complications of amputation stump (principal); E11.52 Type 2 diabetes mellitus with diabetic peripheral angiopathy with gangrene; E11.65 Type 2 diabetes mellitus with hyperglycemia; E11.69 Type 2 diabetes mellitus with other specified complication; E78.5 Hyperlipidemia, unspecified; S98.132A Complete traumatic amputation of one left lesser toe, initial encounter; Y83.5 Amputation of limb(s) as the cause of abnormal reaction of the patient, or of later complication, without mention of misadventure at the time of the procedure; Z83.3 Family history of diabetes mellitus; Z89.412 Acquired absence of left great toe; Z89.429 Acquired absence of other toe(s), unspecified side; Z91.19 Patient's noncompliance with other medical treatment and regimen; Z79.02 Long term (current) use of antithrombotics/antiplatelets
CPT/HCPCS: 36415; 80048; 81025; 82962; 83036; 85025; 85651; 87071; 87075; A7015; J0690; J0696; J1100; J1815; J2001; J2020; J2185; J2270; J2405; J2543; J2704; J3370; J7030; J7040; J7042; A4461

== ENCOUNTER → 2021-02-02 | Outpatient (CLI) | payer OTHER ==
[2019-12-21 11:00] VITALS: BP 147/81
[~2021-02-02] MED LIST changes: +AMLO-186 PO; -AMLO5TAB10 PO; -ASCO500T2 PO; +ASCO500T4 PO; -GLIM2TAB2 PO; +GLIM2TAB7 PO; +INSU100I11 SQ; +INSU100I13 SQ; +METF500T PO; +METF500T16 PO; -MULT1TAB90 PO; +MULT1TAB92 PO; +OXYC1TAB15 PO
[2021-02-02 12:25] LABS: HEMATOCRIT 39.9 % (36.0-47.0); HEMOGLOBIN 12.9 g/dL (12.0-15.5); RED BLOOD COUNT 4.79 x10^6/uL (3.50-5.40); RED CELL DISTRIBUTION WIDTH 13.3 % (11.5-14.5)
[2021-02-02 12:39] LABS: ALBUMIN 3.4 g/dL (3.4-5.0); ALBUMIN/GLOBULIN RATIO 0.8 (1.0-1.7); CALCIUM 8.7 mg/dL (8.5-10.1); CREATININE 0.8 mg/dL (0.6-1.0); GFR 93.4; POTASSIUM 5.2 mmol/L (3.5-5.1); TOTAL BILIRUBIN 0.5 mg/dL (0.2-1.0); TOTAL PROTEIN 7.7 g/dL (6.4-8.2)
[2021-02-02 12:40] LABS: CHOLESTEROL/HDL RATIO 5.3
== END ==
LOC: LAB 12:05
PROVIDERS: ATTEND Family Medicine
DX: E11.9 Type 2 diabetes mellitus without complications (principal); I10 Essential (primary) hypertension; E78.5 Hyperlipidemia, unspecified
CPT/HCPCS: 36415; 80053; 80061; 83036; 85027